=== PATIENT | female | born 1965 | race Caucasian/White ===

== ENCOUNTER → 2016-12-18 | Outpatient (CLI) | payer BC ==
[~2016-12-18] MED LIST: ADVIN25050 INH; ALBU0.08 INH; ALBUAER2 INH; ALL60 PO; CALC250T8 PO; DIPH25CA5 PO; DTR/5 PO; EPP3/2 IM; FLX/5 PO; ONDA8TAB7 PO; PHEN-876 PO; PSEU60TA80 PO; RIZA10TA18 PO; SNQ/25 PO; SUMA6KIT SC; magnesium PO
--- NOTE | 2016-12-18 10:30 | DIAGNOSTIC IMAGING REPORT ---
PET/CT HISTORY: OVARIAN CANCER TECHNIQUE: PET/CT was performed from the base of the skull through the pelvis following the intravenous administration of 13.4 mCi of F18-FDG. Non-contrast CT imaging was performed over the same range without breath-hold for attenuation correction of PET images and anatomic correlation, but not for primary interpretation as it is not of standard diagnostic quality. CT DOSE: COMPARISON: PET CT 08/23/2016. FINDINGS: HEAD AND NECK: There is no FDG-avid disease or significant lymphadenopathy in the imaged portions of the head and the neck. CHEST: There is no FDG-avid disease in the chest. There is no axillary, mediastinal, or hilar lymphadenopathy. There is no pleural or pericardial effusion. There is no air-space disease or suspicious lung nodule. The ascending thoracic aorta measures up to 4.2 cm in diameter, unchanged. ABDOMEN/PELVIS: Below the diaphragm, tracer is distributed physiologically in the gastrointestinal and genitourinary tracts. Increase in size in the cystic lesion lateral to the right psoas muscle. This measures 8.0 x 6.4 cm, previous measuring 6.1 x 4.8 cm. There is increase in the fluid surrounding this lesion. The fluid demonstrates mild FDG uptake with an SUV max of 3. A few small areas of peripheral FDG uptake within this lesion. This is most pronounced on image 178 which demonstrates a small focus with an SUV max of 4. This area previously demonstrated an SUV max of 1.7. There is also 1 cm soft tissue nodule at the right vaginal cuff on image 206. This demonstrates progressive FDG uptake with an SUV max of 7, previously demonstrating an SUV max of 5. This is suspicious for a metastatic focus. Stable 9 mm ileocolic lymph node which does not demonstrate abnormal FDG uptake. MUSCULOSKELETAL: There is no FDG-avid or destructive bone lesion. IMPRESSION: 1. Increase in size and peripheral FDG uptake associated with the cystic lesion within the right lower quadrant abutting the right psoas muscle. This is consistent with progression of metastatic disease. 2. There is also increased FDG uptake associated with an 1 cm soft tissue nodule within the right vaginal cuff. This also likely represents progressive metastatic disease. Electronically signed by: Rhys Pope M.D. 12/18/2016 10:28 AM Dictated Date/Time: 12/18/2016 10:14 AM
== END | disposition home or self-care (01) ==
LOC: C.PET 06:55
PROVIDERS: ATTEND Radiology Radiation Oncology
DX: C56.9 Malignant neoplasm of unspecified ovary (principal); C78.89 Secondary malignant neoplasm of other digestive organs; C77.5 Secondary and unspecified malignant neoplasm of intrapelvic lymph nodes

== ENCOUNTER → 2016-12-20 | Outpatient (CLI) | payer BC ==
[~2016-12-20] MED LIST changes: +GADAVIST IV PRN
--- NOTE | 2016-12-20 09:46 | DIAGNOSTIC IMAGING REPORT ---
MRI OF THE PELVIS COMBO CLINICAL HISTORY: Ovarian cancer. Pelvic lesions seen by PET. COMPARISON STUDY: Pelvic CT dated 04/28/2011. PET CT dated 12/18/2016 and 08/23/2016. TECHNIQUE: MRI of the pelvis is performed utilizing various T1 and T2-weighted sequences in the axial, sagittal, coronal planes. Contrast-enhanced sequences were acquired following the IV administration of 9.4 cc of Gadavist. The examination is degraded by motion artifact. FINDINGS: The uterus and ovaries are not identified and presumed surgically absent. The bladder is decompressed and not well evaluated. No pelvic sidewall or inguinal lymphadenopathy is seen. A cystic lesion along the right psoas musculature is only partially visualized, and was only seen on the coronal sequences. This measures up to 8 cm in length. Mild nodularity is suggested along the inferior margin and the appearance is highly concerning for metastatic ovarian carcinoma. This was better characterized on the recent PET examination. There is mild irregularity/nodularity suggested involving the superior margin of the vaginal cuff eccentric to the right. This is best seen on axial postcontrast image 22 and measures 1.7 cm in AP diameter. It is unclear if this represents normal tissue, and this may correspond to the FDG activity questioned on the recent PET scan. No additional lesions are questioned in the pelvis. There is no pelvic ascites. The iliac vessels appear patent. No destructive bony lesion is suggested. Mild edema is present within the right iliacus muscle. IMPRESSION: 1. An 8 cm cystic lesion along the right psoas musculature is only partially visualized. This was better characterized on the 12/18/2016 PET examination and remains highly concerning for metastatic ovarian cancer. 2. There is mild irregularity identified along the superior margin of the vaginal cuff. This likely corresponds to the focus of activity questioned by PET. No definite lesion is identified, and this may simply represent postoperative irregularity. Attention at follow-up is recommended. 3. No additional lesions are clearly identified in the pelvis. 4. The uterus and ovaries are surgically absent. 5. Nonspecific intramuscular edema is noted within the right iliacus. Dictated: 12/20/2016 9:06 AM Transcribed: 12/20/2016 9:45 AM [place] Electronically signed by: Scott Michaels M.D. 12/20/2016 9:48 AM Dictated Date/Time: 12/20/2016 9:06 AM
== END | disposition home or self-care (01) ==
LOC: C.MRI 07:27
PROVIDERS: ATTEND Radiology Radiation Oncology
DX: C56.9 Malignant neoplasm of unspecified ovary (principal); C78.89 Secondary malignant neoplasm of other digestive organs; C77.5 Secondary and unspecified malignant neoplasm of intrapelvic lymph nodes

== ENCOUNTER → 2017-01-18 | Outpatient (CLI) | payer BC ==
[~2017-01-18] MED LIST changes: -GADAVIST IV PRN
--- NOTE | 2017-01-18 11:18 | Discharge Instructions ---
Discharge Instructions Procedure Procedure Date: January 18, 2017. Reason for visit: Ovarian Ca, Malignent Neoplasm*Dr De La Torre To Do*. Discharge Discharge Date: January 18, 2017. Discharge Diagnosis: s/p aspiration of right retroperitoneal cystic mass Instructions Activity Recommendations: No limitations Return to School/Work: no limitations Recommended Home Diet: No Limitations Provider Instructions: ACTIVITY RECOMMENDATIONS: * Rest today. * Resume regular activity in one day. MEDICATIONS: * May take Tylenol or Ibuprofen as needed for pain. DIET: * Resume previous diet. SPECIAL CARE INSTRUCTIONS: Call your doctor if: * Temperature above 101 degrees F. * Pain not relieved by pain medicine ordered. * Increased drainage or redness from incision. * Notify your doctor with any questions or concerns. Call your doctor or go to the nearest Emergency Department if you experience: * Increased chest pain or shortness of breath. FOLLOW UP VISIT: Follow-up with Referring Physician as scheduled. Allergies Coded Allergies: BEE STING (Verified Allergy, Severe, ANAPHYLAXIS, 10/28/15) Fish Allergy (Verified Allergy, Severe, ANAPHYLAXIS TO SEAFOOD, 07/16/15) Food (Verified Allergy, Severe, HONEYDUE MELON-SWELLING, HIVES, AND ASTHMA ATTACK, 07/16/15) Iodinated Diagnostic Agents (Verified Allergy, Severe, ANAPHYLAXIS, 10/28/15 ) Magnesium Salicylate (Verified Allergy, Severe, ANAPHYLAXIS, 10/28/15) Penicillins (Verified Allergy, Severe, ANAPHYLAXIS, 10/28/15) Shellfish (Verified Allergy, Severe, ANAPHYLAXIS TO SEAFOOD, 07/16/15) Shellfish Allergy (Verified Allergy, Severe, ANAPHYLAXIS TO SEAFOOD, 07/16) Black [place] (Verified Allergy, Intermediate, SWELLING, HIVES AND ASTHMA ATTACK, 10/28/15) Cantaloupe (Verified Allergy, Intermediate, SWELLING, HIVES, ASTHMA ATTACK , 10/28/15) Coconut (Verified Allergy, Intermediate, SWELLING, HIVES, ASTHMA ATTACK, ) Codeine (Verified Allergy, Intermediate, SWELLING, HIVES, ASTHMA ATTACK, ) TREATED WITH EPI Iodine (Verified Allergy, Intermediate, SWELLING, RASH, BLISTERS, BLEEDING , 10/28/15) Milk (Verified Allergy, Intermediate, SWELLING, HIVES AND MIGRAINES, ) [place] (Verified Allergy, Intermediate, SWELLING, HIVES, MIGRAINES, 10/28/15) Tetracycline (Verified Allergy, Intermediate, SWELLING, HIVES, ASTHMA ATTACK, 10/28/15) TREATED WITH EPI Latex1 -Allergic Contact Dermititis (Verified Allergy, Unknown, 07/16/15) Henok Womack Recommendations: Call your doctor if: * Temperature above 101 degrees * Pain not relieved by pain medicine ordered * There is increased drainage or redness from any incision * You have any unanswered questions or concerns. Your Doctors Instructions noted above were prepared by provider Jeff De La Torre. Patient Signature Section: Patient Instructions Signature Page [place] Pal Patient (or Guardian) Signature/Date: I have read and understand the instructions given to me by my caregivers. Caregiver/RN/Doctor Signature/Date: The above-named patient and/or guardian has received patient instructions on this date. + Original Patient Signature Page (only) stays with chart. Please make copy for patient.
--- NOTE | 2017-01-18 11:43 | DIAGNOSTIC IMAGING REPORT ---
ULTRASOUND GUIDED ASPIRATION OF RIGHT RETROPERITONEAL CYSTIC MASS CLINICAL HISTORY: Ovarian carcinoma. COMPARISON STUDY: PET/CT December 18, 2016. PROCEDURE: Sonography demonstrated the right retroperitoneal cystic mass shown on PET/CT of December 18, 2016. This mass measures approximate 8.1 x 6.4 cm. This was targeted for aspiration. The procedure, risks and benefits were discussed with the patient including the risk of bleeding, infection and tumor spread. The patient agreed to the procedure and informed written consent was obtained. The procedure was performed by Dr. De La Torre following a timeout. Skin was prepped and draped in sterile fashion and local anesthesia was achieved with 1% lidocaine. Under direct ultrasound guidance, an 18-gauge, 3 and 1/2 inch spinal needle was directed into the cystic mass. A total of 225 cc of reddish-brown fluid was aspirated and sent to laboratory for cytology. The lesion was aspirated to near completion. A small amount of residual fluid was noted. The patient tolerated the procedure well and no immediate complications were evident. IMPRESSION: Ultrasound guided aspiration of the right retroperitoneal cystic mass. 225 cc of reddish-brown fluid was aspirated and sent to laboratory for cytology. The lesion was aspirated to near completion with a small amount of residual fluid. Electronically signed by: Jeff De La Torre M.D. 01/18/2017 11:42 AM Dictated Date/Time: 01/18/2017 11:40 AM
== END | disposition home or self-care (01) ==
LOC: C.ULTR 10:25
PROVIDERS: ATTEND Radiology Radiation Oncology
DX: K68.9 Other disorders of retroperitoneum (principal)

== ENCOUNTER → 2017-02-16 | Outpatient (CLI) | payer BC ==
--- NOTE | 2017-02-16 11:13 | DIAGNOSTIC IMAGING REPORT ---
ULTRASOUND GUIDED ASPIRATION OF A RIGHT RETROPERITONEAL CYSTIC MASS CLINICAL HISTORY: Ovarian carcinoma. COMPARISON STUDY: PET/CT December 18, 2016. PROCEDURE: Sonography demonstrated the right retroperitoneal cystic mass shown on PET/CT of December 18, 2016. This mass measures approximate 7 cm. This was targeted for aspiration. The procedure, risks and benefits were discussed with the patient including the risk of bleeding, infection and tumor spread. The patient agreed to the procedure and informed written consent was obtained. The procedure was performed by Dr. Pope following a timeout. Skin was prepped and draped in sterile fashion and local anesthesia was achieved with 1% lidocaine. Under direct ultrasound guidance, an 18-gauge, 3 and 1/2 inch spinal needle was directed into the cystic mass. A total of 180 cc of reddish-brown fluid was aspirated and discarded. The lesion was aspirated to completion. The patient tolerated the procedure well and no immediate complications were evident. IMPRESSION: Ultrasound guided aspiration of the right retroperitoneal cystic mass. 180 cc of reddish-brown fluid was aspirated. Electronically signed by: Rhys Pope M.D. 02/16/2017 11:11 AM Dictated Date/Time: 02/16/2017 11:09 AM
== END | disposition home or self-care (01) ==
LOC: C.ULTR 08:59
PROVIDERS: ATTEND Radiology Radiation Oncology
DX: C56.9 Malignant neoplasm of unspecified ovary (principal); C78.89 Secondary malignant neoplasm of other digestive organs

== ENCOUNTER → 2017-03-09 | Outpatient (CLI) | payer BC ==
[~2017-03-09] MED LIST changes: +BND25 PO; -DIPH25CA5 PO; -DTR/5 PO; +OXYB5TAB74 PO
--- NOTE | 2017-03-09 09:51 | DIAGNOSTIC IMAGING REPORT ---
ULTRASOUND-GUIDED ASPIRATION OF A RIGHT RETROPERITONEAL CYSTIC MASS CLINICAL HISTORY: Ovarian carcinoma. Right lower quadrant cyst. COMPARISON STUDY: No previous studies for comparison. FINDINGS: The risks were explained the patient, and informed consent was obtained. There is a right lower quadrant cystic lesion measuring 6.2 x 6.6 x 5.5 cm. The patient was prepped in sterile fashion. The skin was anesthetized 1% lidocaine. Under ultrasound guidance, an 18-gauge needle was introduced into the cystic lesion. The lesion was aspirated. Only minimal residual fluid was noted.. 75 cc of reddish-brown fluid was aspirated. IMPRESSION: 1. The patient's right lower quadrant cystic lesion was aspirated to near completion. 75 cc of reddish-brown fluid was removed. 2. There were no immediate complications. Electronically signed by: Cullen Roman M.D. 03/09/2017 9:50 AM Dictated Date/Time: 03/09/2017 9:47 AM
== END | disposition home or self-care (01) ==
LOC: C.ULTR 08:41
PROVIDERS: ATTEND Radiology Radiation Oncology
DX: R19.07 Generalized intra-abdominal and pelvic swelling, mass and lump (principal)

== ENCOUNTER → 2017-05-08 | Outpatient (CLI) | payer BC ==
[~2017-05-08] MED LIST changes: -PSEU60TA80 PO
[2017-05-08 14:01] VITALS: BP 124/87; PULSE 90; TEMP 36.8; O2SAT 96
--- NOTE | 2017-05-08 16:04 | Radiation Oncology Follow-Up ---
Radiation Oncology Follow-Up Date of Visit May 08, 2017. Reason For Visit One-month follow-up Radiation Completion Date finished 11-17-2015 and 04-03-2017 Diagnosis (1) ovarian cancer Status: Resolved Onset Date: 03/02/2008 Location: vaginal cuff recurrence November 2016 Histology Subtype: high-grade serous carcinoma Permanent Comment: -Finding of a pelvic mass -Status post total abdominal hysterectomy bilateral salpingo-oophorectomy 2007 -Serous adenocarcinoma bilaterally of the ovaries -Status post 6 cycles of Taxol and carboplatin March 2008 to July 2008 -Rising CEA 125 with abdominal and pelvic changes on CT -Status post debulking 01/28/2014 -Systemic chemotherapy Taxol and carboplatin February 2014 to July 2014 -Negative PET/CT 08/24/2014 -Slow rise in CEA 125 last value 40 -PET/CT positive for splenic metastasis and right sidewall activity 09/27/2015 -Status post completion of combined radiation and chemotherapy -Radiation completed 11/17/2015 received 5000 cGy to the splenic lesion and 5000 cGy to the right sidewall -Vaginal cuff recurrence - 12/04/2016 (Biopsy date) Status post completion of radiation therapy 04/03/2017. She received 4400 cGy external beam therapy as well as 5 HDR treatments at 400 cGy each. Last Edited By: Rubi Martinez on Apr 12, 2017 10:02 History of Present Illness Ms. Pal is a 52-year-old female who was found to have ovarian masses in 2007. A CT scan from 02/03/2008 revealed partially solid partially cystic mass noted anterior to the uterus with fluid versus probable second septated cystic mass to the right of uterus. The anterior mass measured 9.2 x 5.1 x 6.3 cm and the right-sided mass measured 7.8 x 6.4 x 4.4 cm. This was felt to be compatible with a primary ovarian neoplasm. Patient also previously undergone a left rest lumpectomy by Dr. Pedro Farias which revealed negative tissue or in situ or invasive cancer. The patient was seen by Dr. Campos and on 2007 underwent a total abdominal hysterectomy and BSO with lymph node dissection. The left tube and ovary revealed multiple solid firm nodules underneath the capsule and stroma ranging from 0.5 cm to 2.8 cm in diameter. There were multiple necrotic pinker brown colored hemorrhagic areas inside the tumor. This was consistent with a serous adenocarcinoma. The fallopian tube was negative. The right tube and ovary revealed multiple tumor masses ranging from 0.5-2.6 cm in diameter. Multiple hemorrhagic areas are noted inside the parenchymal area area and these are also consistent with a serous adenocarcinoma with negative fallopian tube. Evaluation of the uterus and cervix was negative for malignancy. 8 left periaortic and 2 left pelvic lymph nodes were dissected and were negative for metastatic disease. A biopsy of the left peritoneum was negative for tumor. 5 right periaortic and 2 right pelvic lymph nodes were negative for metastasis. A right pelvic sidewall peritoneal biopsy was negative for tumor. An omentectomy was performed and was negative for tumor. A right gutter biopsy of the peritoneum and left upper gutter biopsy of the peritoneum were negative for tumor. The right ovary tumor measured 9.5 x 6.2 x 5.7 cm and the left ovarian tumor measured 9.0 x 6.0 x 3.4 cm. This was a poorly differentiated carcinoma with pathologic FIGO staging pT 1 N0 MX with 0 of 17 nodes positive. The patient was seen postoperatively by Dr. Pk Perry who recommended adjuvant systemic chemotherapy. The patient had a port placed by Dr. Milad Conner she went on to receive 6 cycles of Carboplatin and Taxol. She was followed with CA 125 and serial CAT scans. On 09/07/2008 CT scan of the chest, abdomen and pelvis unenhanced revealed postsurgical changes. These were repeated on 2008 again showing postoperative changes. CT scan of the abdomen and pelvis performed on 01/18/2010 revealed no enlarged adenopathy or masses with postoperative changes. Restaging CT scan of the chest, abdomen and pelvis performed on 05/06/2010 unenhanced showed stable findings with no evidence of recurrent disease. Restaging CT scan of the abdomen and pelvis performed on 09/2010 was again stable with no evidence of recurrent disease. On 05/08/2012 patient underwent a PET/CT scan. This showed no evidence of abnormal PET uptake and thus no evidence of recurrent disease. Her CA 125 from 05/09/2012 was normal at 10.8. Repeat CEA 125 on 10/09/2012 was 13.1. Repeat PET/CT scan on 05/19/2013 showed a new focal hypermetabolic area within the anterior medial segment of the left hepatic lobe. This was of uncertain significance. An unchanged area of 1.2 x 0.5 cm left retroperitoneal lymph node was again noted but was not hypermetabolic. Recommended continued follow-up. Repeat CEA 125 from 08/05/2013 became abnormal at 21.2. This was repeated on 09/24/2013 with continued elevation to 26. With a rising CEA 125 patient was seen by Dr. Campos. He repeated the CEA 125 on 10/31/2013. This showed continued elevation to 36. A CT scan of the abdomen and pelvis was subsequently performed which showed a fluid collection near the liver. Cytologies were taken and were positive for recurrent disease. Therefore on 01/28/2014 she underwent an exploratory laparotomy, right retroperitoneal dissection and tumor debulking. She was found to have a number of small tumor-like nodules in the right upper quadrant measuring approximately 2-3 mm in size. All visible nodules were excised. She underwent a right retroperitoneal dissection. She was found to have a band like area of what appeared to be recurrent disease measuring approximately a finger breath in thickness. This band like tissue extended for a few inches and was excised. No further abnormal tissue is identified. This showed recurrent stage II ovarian adenocarcinoma. Accession: [id number]. She again returned to see Dr. Perry and was started back on systemic chemotherapy consisting of Taxol and carboplatinum. She had a repeat PET/CT scan performed on 08/24/2014. This showed no FDG activity to suggest residual disease. The patient's CEA 125 was also followed closely. On 05/08/2014 it had decreased to 10.1. 06/19/2014 CA 125 was 9. 07/17/2014 CEA 125 9. 08/14/2014 CEA 125 was 8. On September 2015 and 12/07/2014 CEA 125 was 7. On 01/25/2015 CEA 125 was 9 area and on 2014 prostate-specific antigen increased to 16 and on 05/31/2015 CEA 125 was 29. On 07/09/2015 the patient underwent repeat CT scan of the chest abdomen and pelvis with contrast. This was compared to a previous CT scan of the abdomen and pelvis from 03/05/[address] scan was performed with dose reduction protocol. The spleen was unremarkable. In the right lower quadrant adjacent to the psoas muscle a lobulated mass which measured approximately 2.8 x 2.0 x 3.9 cm was identified. The Hounsfield unit numbers were higher than expected for simple fluid and this was not present on prior exam. There was some adjacent lymph nodes seen in the mesentery and the right lower quadrant with mesenteric lymph nodes being similar. There was no ascites and no free air. This is consistent with recurrent disease. Repeat CEA 125 from 2014 was 33 and from 09/10/2015 showed continued elevation to 44. Patient underwent a PET/CT scan on 09/27/2015. This showed an interval development of a hypermetabolic active focus in the medial aspect of the left spleen measuring 1.5 cm with an SUV exceeding 7. In addition there were lateral right pelvic sidewall adenopathy measuring 1.5 cm and an SUV of 5.5. These changes suggest early development of recurrent disease which correspond to the persistent increase in CEA 125. The images were evaluated by Dr. Campos and discussed with Dr. Perry. Surgery was not felt to be the best choice at this time and the recommendation was for consideration of reinitiation of systemic chemotherapy along with focal radiation. She completed radiation therapy 11/17/2015 she received 5000 cGy to the PET positive area in the spleen as well as the pelvis. The patient has been doing well with no evidence of recurrence until she presented recently to Dr. Moe Campos on 12/01/2016 with complaints of post coital bleeding and intermittent some vaginal discomfort. She did also have an elevated CA 125 which measured 28 in October 2016. The patient was seen and examined by Dr. Campos who did note a nodule within the vaginal cuff at the apex during his examination. Dr. Campos did perform a biopsy of the vaginal nodule which came back positive for high-grade serous carcinoma. We've been asked to evaluate the patient for consideration of potential radiation therapy for her vaginal cuff recurrence. She underwent combined external beam therapy and HDR treatments. The external beam radiation was completed 03/15/2017. She received 4400 cGy. She had 5 HDR treatments. These were 400 cGy each. The final treatment was given on 2016. Interim History She's been doing well over the past month. She steadily weaned off of the medications used for bladder irritation. She had been on Pyridium and Ditropan. She was able to completely discontinue the medication last . She has not had any further bladder spasms area she has minimal urinary urgency. She's had no vaginal discharge or bleeding. There is been no change in bowel habits. She denies pelvic pressure or pain. Her energy is steadily improving. She had some discomfort across the lower pelvic area after helping her harvest potatoes from the garden. She denied back pain. Allergies Coded Allergies: BEE STING (Verified Allergy, Severe, ANAPHYLAXIS, 10/28/15) Fish Allergy (Verified Allergy, Severe, ANAPHYLAXIS TO SEAFOOD, 07/16/15) Food (Verified Allergy, Severe, HONEYDUE MELON-SWELLING, HIVES, AND ASTHMA ATTACK, 07/16/15) Iodinated Diagnostic Agents (Verified Allergy, Severe, ANAPHYLAXIS, 10/28/15 ) Magnesium Salicylate (Verified Allergy, Severe, ANAPHYLAXIS, 10/28/15) Penicillins (Verified Allergy, Severe, ANAPHYLAXIS, 10/28/15) Shellfish (Verified Allergy, Severe, ANAPHYLAXIS TO SEAFOOD, 07/16/15) Shellfish Allergy (Verified Allergy, Severe, ANAPHYLAXIS TO SEAFOOD, 07/16) Black Junedale Tree (Verified Allergy, Intermediate, SWELLING, HIVES AND ASTHMA ATTACK, 10/28/15) Cantaloupe (Verified Allergy, Intermediate, SWELLING, HIVES, ASTHMA ATTACK , 10/28/15) Coconut (Verified Allergy, Intermediate, SWELLING, HIVES, ASTHMA ATTACK, ) Codeine (Verified Allergy, Intermediate, SWELLING, HIVES, ASTHMA ATTACK, ) TREATED WITH EPI Iodine (Verified Allergy, Intermediate, SWELLING, RASH, BLISTERS, BLEEDING , 10/28/15) Milk (Verified Allergy, Intermediate, SWELLING, HIVES AND MIGRAINES, ) Swink (Verified Allergy, Intermediate, SWELLING, HIVES, MIGRAINES, 10/28/15) Tetracycline (Verified Allergy, Intermediate, SWELLING, HIVES, ASTHMA ATTACK, 10/28/15) TREATED WITH EPI Latex1 -Allergic Contact Dermititis (Verified Allergy, Unknown, 07/16/15) Home Medications Scheduled Albuterol Soln (Proventil 0.083% 2.5MG/3ML), 1 INHA INH PRN Calcium Citrate (Calcium Citrate), 1 TAB PO HS Doxepin (Sinequan), 150 MG PO HS Epinephrine (Epipen), 0.3 MG IM UD Fexofenadine Hcl (Anna *), 60 MG PO QPM [magnesium], 250 MG PO HS Scheduled PRN Albuterol (Ventolin), 2 PUFFS INH QID PRN for SOB/Wheezing Cyclobenzaprine HCl (Cyclobenzaprine HCl), 1 TAB PO for Muscle Spasms Diphenhydramine Hcl (Benadryl), 25 MG PO Q4H PRN for ALLERGIC REACTION Fluticasone Prop/Salmeterol (Advair Diskus 250/50 Mcg *), 1 PUFF INH HS PRN for SOB/Wheezing Ondansetron Tab (Zofran), 8 MG PO TID PRN for Nausea or Vomiting Rizatriptan Benzoate (Maxalt), 10 MG PO for Headache Sumatriptan Succinate (Imitrex Statdose), 4 MG SC UD PRN for Migraine Review of Systems Gastrointestinal: Symptoms: WNL Oral: Symptoms: Scant Saliva/Dry Mouth Respiratory: Symptoms: WNL Urinary: Symptoms: Nocturia Comments: just getting off ditropan and pyridium , nocturia times 1 Skin: Symptoms: No Problems Additional Notes: She completed distress management report and answered "no" to all questions. Physical Exam Vital Signs Date Time Temp Pulse Resp B/P (MAP) Pulse Ox O2 Delivery O2 Flow Rate FiO2 05/08/17 14:01 36.8 90 16 124/87 96 Pain: Side: Bilateral Patient Pain Scale: 0 - 10 Initial Pain Intensity: 0.0 Fatigue: None General Appearance: no apparent distress Neck: no adenopathy, thyroid normal Respiratory/Chest: lungs clear, no respiratory distress, no accessory muscle use Cardiovascular: regular rate, rhythm, no gallop, no murmur Genitourinary - Female: Examination performed by Dr. Haines. There is narrowing at the introitus and foreshortening of the vagina. There are mild post radiation changes seen at the apex. There are no visible or palpable lesions in the vagina. There is no tenderness or masses on bimanual examination. Anal / Rectum: There is no rectal masses and no rectal bleeding. Extremities: no pedal edema Neurologic/Psychiatric: no motor/sensory deficits, alert, normal mood/affect Laboratory Studies Test 03/19/17 16:10 05/04/17 16:17 White Blood Count 4.64 K/uL (4.8-10.8) 5.56 K/uL (4.8-10.8) Red Blood Count 4.47 M/uL (4.2-5.4) 3.90 M/uL (4.2-5.4) Hemoglobin 13.2 g/dL (12.0-16.0) 12.2 g/dL (12.0-16.0) Hematocrit 40.3 % (37-47) 36.4 % (37-47) Mean Corpuscular Volume 90.2 fL (80-100) 93.3 fL (80-100) Mean Corpuscular Hemoglobin 29.5 pg (25-34) 31.3 pg (25-34) Mean Corpuscular Hemoglobin Concent 32.8 g/dl (32-36) 33.5 g/dl (32-36) Platelet Count 268 K/uL (130-400) 326 K/uL (130-400) Mean Platelet Volume 9.4 fL (7.4-10.4) 9.1 fL (7.4-10.4) Neutrophils (%) (Auto) 70.7 % 72.8 % Lymphocytes (%) (Auto) 6.0 % 13.1 % Monocytes (%) (Auto) 18.8 % 9.9 % Eosinophils (%) (Auto) 4.1 % 3.8 % Basophils (%) (Auto) 0.2 % 0.2 % Neutrophils # (Auto) 3.28 K/uL (1.4-6.5) 4.05 K/uL (1.4-6.5) Lymphocytes # (Auto) 0.28 K/uL (1.2-3.4) 0.73 K/uL (1.2-3.4) Monocytes # (Auto) 0.87 K/uL (0.11-0.59) 0.55 K/uL (0.11-0.59) Eosinophils # (Auto) 0.19 K/uL (0-0.5) 0.21 K/uL (0-0.5) Basophils # (Auto) 0.01 K/uL (0-0.2) 0.01 K/uL (0-0.2) RDW Standard Deviation 44.4 fL (36.4-46.3) 48.0 fL (36.4-46.3) RDW Coefficient of Variation 13.6 % (11.5-14.5) 14.2 % (11.5-14.5) Immature Granulocyte % (Auto) 0.2 % 0.2 % Immature Granulocyte # (Auto) 0.01 K/uL (0.00-0.02) 0.01 K/uL (0.00-0.02) Sodium Level 140 mmol/L (136-145) 140 mmol/L (136-145) Potassium Level 3.8 mmol/L (3.5-5.1) 3.7 mmol/L (3.5-5.1) Chloride Level 105 mmol/L (98-107) 105 mmol/L (98-107) Carbon Dioxide Level 29 mmol/L (21-32) 29 mmol/L (21-32) Anion Gap 6.0 mmol/L (3-11) 6.0 mmol/L (3-11) Blood Urea Nitrogen 19 mg/dl (7-18) 14 mg/dl (7-18) Creatinine 0.92 mg/dl (0.60-1.20) 0.88 mg/dl (0.60-1.20) Est Creatinine Clear Calc Drug Dose 78.6 ml/min 82.1 ml/min Estimated GFR () 83.0 87.6 Estimated GFR (Non- 71.6 75.5 BUN/Creatinine Ratio 20.8 (10-20) 15.9 (10-20) Random Glucose 93 mg/dl (70-99) 91 mg/dl (70-99) Calcium Level 9.4 mg/dl (8.5-10.1) 8.9 mg/dl (8.5-10.1) Total Bilirubin 0.3 mg/dl (0.2-1) 0.2 mg/dl (0.2-1) Aspartate Amino Transferase (AST) 14 U/L (15-37) 16 U/L (15-37) Alanine Aminotransferase (ALT) 28 U/L (12-78) 30 U/L (12-78) Alkaline Phosphatase 46 U/L (45-117) 58 U/L (45-117) Lactate Dehydrogenase 154 U/L (84-246) 183 U/L (84-246) Total Protein 7.2 gm/dl (6.4-8.2) 7.1 gm/dl (6.4-8.2) Albumin 3.8 gm/dl (3.4-5.0) 3.5 gm/dl (3.4-5.0) Globulin 3.4 gm/dl (2.5-4.0) 3.6 gm/dl (2.5-4.0) Albumin/Globulin Ratio 1.1 (0.9-2) 1.0 (0.9-2) CA 125 Antigen 30 U/ML (<35) 36 U/ML (<35) Assessment & Plan Plan: She is scheduled for a PET scan May 14. She'll have a recheck visit with Dr. Campos on May 25. She'll be seen in medical oncology in 06/01/2017. We discussed use of a vaginal dilator once she has recovered from treatment. She stated she had discussed this previously with Dr. Campos. She'll continue to review this with him also. We asked her to return to our office in 6 months. She will call if she has any questions or concerns in the interim. Assessment & Plan (Attending) ADDENDUM: I agree with note created by Rubi Martinez PA-C. I reviewed the patient's chart and information with her. I have examined and evaluated the patient. I reviewed relevant clinical information and answered the patient's and /or family's questions. WAITER/WAITRESS INFORMAL Total Time In Follow-Up I spent 20 minutes speaking to the patient performing examination. I spent 15 minutes reviewing information in completing this note. AK Total Time (Attending) In Follow-Up I spent 15 minutes examining and counseling the patient. WAITER/WAITRESS INFORMAL Copy To Moe Campos M.D.; Pk Whitney M.D.; Nataliia Villalobos CRNP
== END | disposition home or self-care (01) ==
LOC: C.ONC 13:47
PROVIDERS: ATTEND Physician Assistant Medical
DX: Z08 Encounter for follow-up examination after completed treatment for malignant neoplasm (principal); Z92.3 Personal history of irradiation; Z85.43 Personal history of malignant neoplasm of ovary

== ENCOUNTER → 2017-05-14 | Outpatient (CLI) | payer BC ==
[~2017-05-14] MED LIST changes: -OXYB5TAB74 PO; -PHEN-876 PO
--- NOTE | 2017-05-14 11:24 | DIAGNOSTIC IMAGING REPORT ---
PET/CT SKULL-THIGH HISTORY: Ovarian carcinoma OVARIAN CA TECHNIQUE: PET/CT was performed from the base of the skull through the pelvis following the intravenous administration of 15.4 mCi of F18-FDG. Non-contrast CT imaging was performed over the same range without breath-hold for attenuation correction of PET images and anatomic correlation, but not for primary interpretation as it is not of standard diagnostic quality. CT DOSE: 612.22 mGycm COMPARISON: 12/18/2016 FINDINGS: HEAD AND NECK: There is no FDG-avid disease or significant lymphadenopathy in the imaged portions of the head and the neck. CHEST: There is no FDG-avid disease in the chest. There is no axillary, mediastinal, or hilar lymphadenopathy. There is no pleural or pericardial effusion. There is no air-space disease or suspicious lung nodule. Focus of increased activity at the tip of the central catheter within the superior vena cava. This most likely represents isotope had a fibrin sheath. No significant mediastinal or hilar adenopathy. Activity is also noted within the patient's infusion port generally secondary to injection artifact. ABDOMEN/PELVIS: Examination is improved compared to the prior study. Cystic lesion adjacent to the right iliopsoas muscle laterally as diminished to 5.5 cm maximum dimension. This running edematous and/or infiltrative change as well as the jennifer pathology in the region anterior to the right iliac so as has improved and/or resolved. Maximum dimension currently is 5 mm diminished from 8.9 mm. There is no significant metabolic activity in this region of the current time. The activity previously described as well as the nodular activity adjacent to the vaginal cuff is diminished. This time there is no abnormal metabolic activity characteristics. There is minimal residual fibrotic scarring at the site previous study discussed. MUSCULOSKELETAL: There is no FDG-avid or destructive bone lesion. IMPRESSION: 1. Improved exam from the prior study. 2. No current pathologic demonstrating a increase in FDG activity. 3. Decrease in size of a cystic process adjacent to the right iliopsoas muscle with a decrease in volume as well as number of nodules on the right lower quadrant region. No abnormal FDG activity in this region 4. Improved activity characteristics of the vaginal cuff with no metabolically active residual lesion present at the current time. The above report was generated using voice recognition software. It may contain grammatical, syntax or spelling errors. Electronically signed by: August Zavala M.D. 05/14/2017 11:23 AM Dictated Date/Time: 05/14/2017 11:09 AM
== END | disposition home or self-care (01) ==
LOC: C.PET 08:12
PROVIDERS: ATTEND Nurse Practitioner Family
DX: C56.9 Malignant neoplasm of unspecified ovary (principal)

== ENCOUNTER → 2017-08-13 | Outpatient (CLI) | payer BC ==
[~2017-08-13] MED LIST changes: -BND25 PO; +DIPH25CA5 PO
--- NOTE | 2017-08-13 14:28 | DIAGNOSTIC IMAGING REPORT ---
PET/CT HISTORY: Ovarian cancer. TECHNIQUE: PET/CT was performed from the base of the skull through the pelvis following the intravenous administration of 12.7 mCi of F18-FDG. Non-contrast CT imaging was performed over the same range without breath-hold for attenuation correction of PET images and anatomic correlation, but not for primary interpretation as it is not of standard diagnostic quality. CT DOSE: COMPARISON: Head CT 05/14/2017. FINDINGS: HEAD AND NECK: There is no FDG-avid disease or significant lymphadenopathy in the imaged portions of the head and the neck. CHEST: Increase in size in the 10 mm left superior mediastinal lymph node on image 49. This demonstrates an SUV max of 2.6. Left Port-A-Cath terminates in the SVC. 1 cm focus of FDG uptake at the tip of the Port-A-Cath within the SVC has decreased in size and demonstrates diminished FDG uptake with an SUV max of 3.6. This previously demonstrated an SUV max of 10.8. Stable 5 mm nodule within the right middle lobe on image 85. This is not demonstrate abnormal FDG uptake but may be below the threshold for PET imaging. Mild FDG uptake within the right lateral fourth rib without corresponding CT abnormality. This demonstrates an SUV max of 2.4. This is new from the prior study. ABDOMEN/PELVIS: No FDG avid hepatic or splenic lesions. No FDG avid retroperitoneal lymph nodes. Prior retroperitoneal lymph node dissection. No significant change in the 5.3 cm retroperitoneal cystic lesion abutting and the the right psoas muscle. This suggests minimal peripheral FDG uptake, unchanged. There is a 5 mm soft tissue nodule within the left anterior omentum on image 135 which may demonstrate minimal FDG uptake. Therefore, this is suspicious for a peritoneal metastatic deposit. Status post hysterectomy. Mild soft tissue thickening at the vaginal cuff with mild FDG uptake along the right side of the vaginal cuff which demonstrates an SUV max of 2.7. This has slightly progressed in the interval. This likely represent slight progression of peritoneal metastatic disease. MUSCULOSKELETAL: There is no FDG-avid or destructive bone lesion. IMPRESSION: 1. Slight progression of FDG avid disease. This is demonstrated by increase in size and FDG uptake within the left superior mediastinal lymph node and slight progression of the FDG uptake and soft tissue stranding at the vaginal cuff. 2. There is a 5 mm omental nodule within the left side of the abdomen which appears to demonstrate minimal FDG uptake. Therefore, this is also concerning for progression of peritoneal carcinomatosis. 3. No significant change in the 5.3 cm retroperitoneal cystic lesion abutting the right psoas muscle. 4. Stable 5 mm indeterminate pulmonary nodule within the right middle lobe. 5. Mild FDG uptake seen within the right lateral fourth rib without corresponding CT abnormality. This bears watching on future examinations. Electronically signed by: Rhys Pope M.D. 08/13/2017 2:26 PM Dictated Date/Time: 08/13/2017 2:01 PM
== END | disposition home or self-care (01) ==
LOC: C.PET 08:38
PROVIDERS: ATTEND Nurse Practitioner Family
DX: C56.9 Malignant neoplasm of unspecified ovary (principal)

== ENCOUNTER → 2017-09-23 | Outpatient (CLI) | payer OTHER, BC ==
--- NOTE | 2017-09-23 16:14 | DIAGNOSTIC IMAGING REPORT ---
CHEST 2 VIEWS ROUTINE HISTORY: COUGH R05 COMPARISON: Chest 03/12/2014. PET CT 08/13/2017. FINDINGS: No focal lung consolidations to suggest pneumonia. Mild bibasilar interstitial thickening which is likely chronic. No evidence for pulmonary edema. The heart is borderline enlarged. Left subclavian Port-A-Cath terminates at the SVC. No pneumothorax. No pleural effusions. IMPRESSION: No focal lung consolidations to suggest pneumonia. Electronically signed by: Rhys Pope M.D. 09/23/2017 4:12 PM Dictated Date/Time: 09/23/2017 4:10 PM
== END | disposition home or self-care (01) ==
LOC: C.RAD 15:48
PROVIDERS: ATTEND Family Medicine
DX: R05 Cough (principal)

== ENCOUNTER → 2017-11-06 | Outpatient (CLI) | payer OTHER, BC ==
[~2017-11-06] MED LIST changes: +CHOL1000 PO
[2017-11-06 14:24] VITALS: BP 136/88; PULSE 92; TEMP 37; O2SAT 96
--- NOTE | 2017-11-06 16:14 | Radiation Oncology Follow-Up ---
Radiation Oncology Follow-Up Date of Visit Nov 06, 2017. Reason For Visit Six-month follow-up Radiation Completion Date 11/17/15 & 04/03/17 Diagnosis (1) ovarian cancer Status: Chronic Onset Date: 03/02/2008 Location: Vaginal cuff recurrence November 2016 Histology Subtype: High-grade serous carcinoma Permanent Comment: -Finding of a pelvic mass -Status post total abdominal hysterectomy bilateral salpingo-oophorectomy 2007 -Serous adenocarcinoma bilaterally of the ovaries -Status post 6 cycles of Taxol and carboplatin March 2008 to July 2008 -Rising CEA 125 with abdominal and pelvic changes on CT -Status post debulking 01/28/2014 -Systemic chemotherapy Taxol and carboplatin February 2014 to July 2014 -Negative PET/CT 08/24/2014 -Slow rise in CEA 125 last value 40 -PET/CT positive for splenic metastasis and right sidewall activity 09/27/2015 -Status post completion of combined radiation and chemotherapy -Radiation completed 11/17/2015 received 5000 cGy to the splenic lesion and 5000 cGy to the right sidewall -Vaginal cuff recurrence - 12/04/2016 (Biopsy date) Status post completion of radiation therapy 04/03/2017. She received 4400 cGy external beam therapy as well as 5 HDR treatments at 400 cGy each. Last Edited By: Rubi Martinez on Apr 12, 2017 10:02 History of Present Illness Ms. Pal was found to have ovarian masses in 2007. A CT scan from 2007 revealed partially solid partially cystic mass noted anterior to the uterus with fluid versus probable second septated cystic mass to the right of uterus. The anterior mass measured 9.2 x 5.1 x 6.3 cm and the right-sided mass measured 7.8 x 6.4 x 4.4 cm. This was felt to be compatible with a primary ovarian neoplasm. Patient also previously undergone a left rest lumpectomy by Dr. Pedro Farias which revealed negative tissue or in situ or invasive cancer. The patient was seen by Dr. Campos and on 03/02/2008 underwent a total abdominal hysterectomy and BSO with lymph node dissection. The left tube and ovary revealed multiple solid firm nodules underneath the capsule and stroma ranging from 0.5 cm to 2.8 cm in diameter. There were multiple necrotic pinker brown colored hemorrhagic areas inside the tumor. This was consistent with a serous adenocarcinoma. The fallopian tube was negative. The right tube and ovary revealed multiple tumor masses ranging from 0.5-2.6 cm in diameter. Multiple hemorrhagic areas are noted inside the parenchymal area area and these are also consistent with a serous adenocarcinoma with negative fallopian tube. Evaluation of the uterus and cervix was negative for malignancy. 8 left periaortic and 2 left pelvic lymph nodes were dissected and were negative for metastatic disease. A biopsy of the left peritoneum was negative for tumor. 5 right periaortic and 2 right pelvic lymph nodes were negative for metastasis. A right pelvic sidewall peritoneal biopsy was negative for tumor. An omentectomy was performed and was negative for tumor. A right gutter biopsy of the peritoneum and left upper gutter biopsy of the peritoneum were negative for tumor. The right ovary tumor measured 9.5 x 6.2 x 5.7 cm and the left ovarian tumor measured 9.0 x 6.0 x 3.4 cm. This was a poorly differentiated carcinoma with pathologic FIGO staging pT 1 N0 MX with 0 of 17 nodes positive. The patient was seen postoperatively by Dr. kP Perry who recommended adjuvant systemic chemotherapy. The patient had a port placed by Dr. Milad Conner she went on to receive 6 cycles of Carboplatin and Taxol. She was followed with CA 125 and serial CAT scans. On 09/07/2008 CT scan of the chest, abdomen and pelvis unenhanced revealed postsurgical changes. These were repeated on 2008 again showing postoperative changes. CT scan of the abdomen and pelvis performed on 01/18/2010 revealed no enlarged adenopathy or masses with postoperative changes. Restaging CT scan of the chest, abdomen and pelvis performed on 05/06/2010 unenhanced showed stable findings with no evidence of recurrent disease. Restaging CT scan of the abdomen and pelvis performed on 09/2010 was again stable with no evidence of recurrent disease. On 05/08/2012 patient underwent a PET/CT scan. This showed no evidence of abnormal PET uptake and thus no evidence of recurrent disease. Her CA 125 from 05/09/2012 was normal at 10.8. Repeat CEA 125 on 10/09/2012 was 13.1. Repeat PET/CT scan on 05/19/2013 showed a new focal hypermetabolic area within the anterior medial segment of the left hepatic lobe. This was of uncertain significance. An unchanged area of 1.2 x 0.5 cm left retroperitoneal lymph node was again noted but was not hypermetabolic. Recommended continued follow-up. Repeat CEA 125 from 08/05/2013 became abnormal at 21.2. This was repeated on 09/24/2013 with continued elevation to 26. With a rising CEA 125 patient was seen by Dr. Campos. He repeated the CEA 125 on 10/31/2013. This showed continued elevation to 36. A CT scan of the abdomen and pelvis was subsequently performed which showed a fluid collection near the liver. Cytologies were taken and were positive for recurrent disease. Therefore on 01/28/2014 she underwent an exploratory laparotomy, right retroperitoneal dissection and tumor debulking. She was found to have a number of small tumor-like nodules in the right upper quadrant measuring approximately 2-3 mm in size. All visible nodules were excised. She underwent a right retroperitoneal dissection. She was found to have a band like area of what appeared to be recurrent disease measuring approximately a finger breath in thickness. This band like tissue extended for a few inches and was excised. No further abnormal tissue is identified. This showed recurrent stage II ovarian adenocarcinoma. Accession: [id number]. She again returned to see Dr. Perry and was started back on systemic chemotherapy consisting of Taxol and carboplatinum. She had a repeat PET/CT scan performed on 08/24/2014. This showed no FDG activity to suggest residual disease. The patient's CEA 125 was also followed closely. On 05/08/2014 it had decreased to 10.1. 06/19/2014 CA 125 was 9. 07/17/2014 CEA 125 9. 08/14/2014 CEA 125 was 8. On September 2015 and 12/07/2014 CEA 125 was 7. On 01/25/2015 CEA 125 was 9 area and on 2014 prostate-specific antigen increased to 16 and on 05/31/2015 CEA 125 was 29. On 07/09/2015 the patient underwent repeat CT scan of the chest abdomen and pelvis with contrast. This was compared to a previous CT scan of the abdomen and pelvis from 03/05/[address] scan was performed with dose reduction protocol. The spleen was unremarkable. In the right lower quadrant adjacent to the psoas muscle a lobulated mass which measured approximately 2.8 x 2.0 x 3.9 cm was identified. The Hounsfield unit numbers were higher than expected for simple fluid and this was not present on prior exam. There was some adjacent lymph nodes seen in the mesentery and the right lower quadrant with mesenteric lymph nodes being similar. There was no ascites and no free air. This is consistent with recurrent disease. Repeat CEA 125 from 2014 was 33 and from 09/10/2015 showed continued elevation to 44. Patient underwent a PET/CT scan on 09/27/2015. This showed an interval development of a hypermetabolic active focus in the medial aspect of the left spleen measuring 1.5 cm with an SUV exceeding 7. In addition there were lateral right pelvic sidewall adenopathy measuring 1.5 cm and an SUV of 5.5. These changes suggest early development of recurrent disease which correspond to the persistent increase in CEA 125. The images were evaluated by Dr. Campos and discussed with Dr. Perry. Surgery was not felt to be the best choice at this time and the recommendation was for consideration of reinitiation of systemic chemotherapy along with focal radiation. She completed radiation therapy 11/17/2015 she received 5000 cGy to the PET positive area in the spleen as well as the pelvis. The patient has been doing well with no evidence of recurrence until she presented recently to Dr. Moe Campos on 12/01/2016 with complaints of post coital bleeding and intermittent some vaginal discomfort. She did also have an elevated CA 125 which measured 28 in October 2016. The patient was seen and examined by Dr. Campos who did note a nodule within the vaginal cuff at the apex during his examination. Dr. Campos did perform a biopsy of the vaginal nodule which came back positive for high-grade serous carcinoma. We've been asked to evaluate the patient for consideration of potential radiation therapy for her vaginal cuff recurrence. She underwent combined external beam therapy and HDR treatments. The external beam radiation was completed 03/15/2017. She received 4400 cGy. She had 5 HDR treatments. These were 400 cGy each. The final treatment was given on 2016. Interim History Over the past 6 months she had continue follow-up with medical oncology and the gynecologic oncologist. Unfortunately the CA 125 has been slowly increasing.This was 36 on May 04, 2017. The result was 47 on July 13, 2017. On August 13, 2017 the value was at 52. She had a PET scan July. This showed slight progression of FDG avid disease. This is demonstrated by increase in size and FDG uptake within the left superior mediastinal lymph node and slight progression of the FDG uptake and soft tissue stranding of the vaginal cuff. There is a 5 mm omental nodule within the left side of the abdomen which appears to demonstrate minimal FDG uptake. Therefore this is also concerning for progression of peritoneal carcinomatosis. No significant change in the 5.3 cm retroperitoneal cystic lesion abutting the right psoas muscle. Stable 5 mm intermediate pulmonary nodule within the right middle lobe. Mild FDG uptake seen within the right lateral fourth rib without corresponding CT abnormality. This bears watching on future examinations. After her last visit with Dr. Damon a vaginal dilator was recommended. She did buy the dilator kit but has not used the dilator. She is not sexually active currently. She had recently been sick over 8 week time. With recurrent ear infection, sinusitis, and then bronchitis. She is finally now improving. Allergies Coded Allergies: BEE STING (Verified Allergy, Severe, ANAPHYLAXIS, 10/28/15) Fish Allergy (Verified Allergy, Severe, ANAPHYLAXIS TO SEAFOOD, 07/16/15) Food (Verified Allergy, Severe, HONEYDUE MELON-SWELLING, HIVES, AND ASTHMA ATTACK, 07/16/15) Iodinated Diagnostic Agents (Verified Allergy, Severe, ANAPHYLAXIS, 10/28/15 ) Magnesium Salicylate (Verified Allergy, Severe, ANAPHYLAXIS, 10/28/15) Penicillins (Verified Allergy, Severe, ANAPHYLAXIS, 10/28/15) Shellfish (Verified Allergy, Severe, ANAPHYLAXIS TO SEAFOOD, 07/16/15) Shellfish Allergy (Verified Allergy, Severe, ANAPHYLAXIS TO SEAFOOD, 07/16) Black [place] Tree (Verified Allergy, Intermediate, SWELLING, HIVES AND ASTHMA ATTACK, 10/28/15) Cantaloupe (Verified Allergy, Intermediate, SWELLING, HIVES, ASTHMA ATTACK , 10/28/15) Coconut (Verified Allergy, Intermediate, SWELLING, HIVES, ASTHMA ATTACK, ) Codeine (Verified Allergy, Intermediate, SWELLING, HIVES, ASTHMA ATTACK, ) TREATED WITH EPI Iodine (Verified Allergy, Intermediate, SWELLING, RASH, BLISTERS, BLEEDING , 10/28/15) Milk (Verified Allergy, Intermediate, SWELLING, HIVES AND MIGRAINES, ) Sears (Verified Allergy, Intermediate, SWELLING, HIVES, MIGRAINES, 10/28/15) Tetracycline (Verified Allergy, Intermediate, SWELLING, HIVES, ASTHMA ATTACK, 10/28/15) TREATED WITH EPI Latex1 -Allergic Contact Dermititis (Verified Allergy, Unknown, 07/16/15) Home Medications Scheduled Albuterol Soln (Proventil 0.083% 2.5MG/3ML), 1 INHA INH PRN Calcium Citrate (Calcium Citrate), 1 TAB PO HS Cholecalciferol (Vitamin D3), 5,000 MG PO DAILY Epinephrine (Epipen), 0.3 MG IM UD Fexofenadine Hcl (Anna *), 60 MG PO QPM Fluticasone Prop/Salmeterol (Advair Diskus 250/50 Mcg *), 1 PUFF INH BID [magnesium], 250 MG PO HS Scheduled PRN Albuterol (Ventolin), 2 PUFFS INH QID PRN for SOB/Wheezing Cyclobenzaprine HCl (Cyclobenzaprine HCl), 1 TAB PO for Muscle Spasms Diphenhydramine Hcl (Benadryl), 25 MG PO Q4H PRN for ALLERGIC REACTION Ondansetron Tab (Zofran), 8 MG PO TID PRN for Nausea or Vomiting Rizatriptan Benzoate (Maxalt), 10 MG PO for Headache Sumatriptan Succinate (Imitrex Statdose), 4 MG SC UD PRN for Migraine Review of Systems Gastrointestinal: Symptoms: WNL GI Comments: Car sick Oral: Symptoms: No Problems Respiratory: Symptoms: WNL Other Respiratory: SOB/Cough from 8 weeks of resp infection - just finished steroids Urinary: Symptoms: WNL Skin: Symptoms: No Problems Physical Exam Vital Signs Date Time Temp Pulse Resp B/P (MAP) Pulse Ox O2 Delivery O2 Flow Rate FiO2 11/06/17 14:24 37.0 92 16 136/88 96 Fatigue: None General Appearance: no apparent distress Eyes: normal inspection, EOMI ENT: normal ENT inspection, hearing grossly normal Respiratory/Chest: lungs clear, no respiratory distress, no accessory muscle use Cardiovascular: regular rate, rhythm, no gallop, no murmur Abdomen: non tender, soft, no organomegaly Genitourinary - Female: external genitalia normal, + pertinent finding (Pelvic examination by Dr. Haines revealed foreshortening of the vagina. There are postoperative changes at the apex. There were no visible or palpable masses. There is no vaginal discharge.) Extremities: no pedal edema Neurologic/Psychiatric: no motor/sensory deficits, alert, normal mood/affect Pain Management Patient Reports Pain: Yes Side: Left Pain Location: Foot Initial Pain Intensity: 5.0 Pain Management Plan This does not require any regular medication. She does not require any pain management through our office. Laboratory Laboratory Results: were reviewed Laboratory Comments: Reviewed in the interim history. Pathology Pathology Results: and pertinent findings noted in HPI Imaging Imaging Studies: were reviewed Imaging Comments Reviewed in the interim history. Assessment & Plan Plan: Patient is scheduled for recheck laboratory studies November 20, 2017. She then will be seeing the gynecologic oncologist. At that time they will discuss follow-up imaging. She will continue regular follow-up with medical oncology. She will use the vaginal dilator if she does not become sexually active. We asked her to return to our office in 6 months. She may call if she has any questions or concerns in the interim. Assessment & Plan (Attending) I agree with note created by Rubi Martinez PA-C. I reviewed the patient's chart and information with her. I have examined and evaluated the patient. I reviewed relevant clinical information and answered the patient's and/or family' s questions. BAND LINING BANDER Total Time In Follow-Up I spent 25 minutes speaking to the patient in performing examination. I spent 15 minutes reviewing information and completing this note. AK Total Time (Attending) In Follow-Up I spent 15 minutes examining and counseling the patient. BAND LINING BANDER Copy To Andrea Naylor MD; Moe Campos M.D.; Pk Whitney M.D.
== END | disposition home or self-care (01) ==
LOC: C.ONC 14:20
PROVIDERS: ATTEND Physician Assistant Medical
DX: Z08 Encounter for follow-up examination after completed treatment for malignant neoplasm (principal); Z92.3 Personal history of irradiation; Z85.43 Personal history of malignant neoplasm of ovary

== ENCOUNTER → 2018-01-08 | Outpatient (CLI) | payer OTHER, BC ==
[~2018-01-08] MED LIST changes: -SNQ/25 PO
[2018-01-08 16:27] LABS: BASO % 0.2 %; BASO ABS # 0.01 K/uL (0-0.2); EOS % 2.5 %; EOS ABS # 0.16 K/uL (0-0.5); HEMATOCRIT 41.9 % (37-47); HEMOGLOBIN 14.5 g/dL (12.0-16.0); IG# 0.01 K/uL (0.00-0.02); LYMPH % 20.9 %; LYMPH ABS # 1.33 K/uL (1.2-3.4); MEAN CELL VOLUME 88.8 fL (80-100); MEAN CORPUSCULAR HEMOGLOBIN 30.7 pg (25-34); MEAN CORPUSCULAR HGB CONC 34.6 g/dl (32-36); MEAN PLATELET VOLUME 9.4 fL (7.4-10.4); MONO % 10.4 %; MONO ABS # 0.66 K/uL (0.11-0.59); NEUT % 65.8 %; NEUT ABS # 4.18 K/uL (1.4-6.5); PLATELET COUNT 297 K/uL (130-400); RED CELL DISTRIBUTION WIDTH CV 13.3 % (11.5-14.5); RED CELL DISTRIBUTION WIDTH SD 43.7 fL (36.4-46.3); WHITE BLOOD COUNT 6.35 K/uL (4.8-10.8)
[2018-01-08 16:49] LABS: ALBUMIN 3.9 gm/dl (3.4-5.0); ALT/SGPT 24 U/L (12-78); AST/SGOT 14 U/L (15-37); BLOOD UREA NITROGEN 21 mg/dl (7-18); CALCIUM 9.3 mg/dl (8.5-10.1); CARBON DIOXIDE 28 mmol/L (21-32); CREATININE 0.91 mg/dl (0.60-1.20); GLUCOSE 93 mg/dl (70-99); SODIUM 140 mmol/L (136-145)
[2018-01-08 16:51] LABS: ALKALINE PHOSPHATASE 67 U/L (45-117); TOTAL PROTEIN 7.7 gm/dl (6.4-8.2)
== END | disposition home or self-care (01) ==
LOC: C.LABSPEC 16:15
PROVIDERS: ATTEND Internal Medicine Hematology & Oncology
DX: C56.9 Malignant neoplasm of unspecified ovary (principal)

== ENCOUNTER → 2018-03-22 | Outpatient (CLI) | payer OTHER ==
[2018-03-22 14:47] LABS: BASO % 0.3 %; BASO ABS # 0.02 K/uL (0-0.2); EOS % 2.4 %; EOS ABS # 0.16 K/uL (0-0.5); HEMATOCRIT 41.9 % (37-47); HEMOGLOBIN 14.4 g/dL (12.0-16.0); IG# 0.01 K/uL (0.00-0.02); LYMPH ABS # 1.45 K/uL (1.2-3.4); MEAN CELL VOLUME 88.2 fL (80-100); MEAN CORPUSCULAR HEMOGLOBIN 30.3 pg (25-34); MEAN CORPUSCULAR HGB CONC 34.4 g/dl (32-36); MEAN PLATELET VOLUME 9.6 fL (7.4-10.4); MONO % 9.4 %; MONO ABS # 0.62 K/uL (0.11-0.59); NEUT % 65.7 %; NEUT ABS # 4.33 K/uL (1.4-6.5); PLATELET COUNT 336 K/uL (130-400); RED CELL DISTRIBUTION WIDTH CV 13.9 % (11.5-14.5); WHITE BLOOD COUNT 6.59 K/uL (4.8-10.8)
[2018-03-22 15:10] LABS: ALT/SGPT 29 U/L (12-78); AST/SGOT 20 U/L (15-37); BLOOD UREA NITROGEN 21 mg/dl (7-18); CALCIUM 9.1 mg/dl (8.5-10.1); CARBON DIOXIDE 27 mmol/L (21-32); CREATININE 0.69 mg/dl (0.60-1.20); GLUCOSE 87 mg/dl (70-99); POTASSIUM 4.1 mmol/L (3.5-5.1); SODIUM 139 mmol/L (136-145)
[2018-03-22 15:13] LABS: ALKALINE PHOSPHATASE 60 U/L (45-117); TOTAL PROTEIN 7.5 gm/dl (6.4-8.2)
== END | disposition home or self-care (01) ==
LOC: C.LABSPEC 14:32
PROVIDERS: ATTEND Nurse Practitioner Family
DX: C56.9 Malignant neoplasm of unspecified ovary (principal)

== ENCOUNTER 2024-04-21 11:58 | Inpatient (IN) ==
[2024-04-21 13:16] LABS: Basophils # (auto) 0.02 K/uL (0.00-0.20); Basophils % (auto) 0.7 %; Eosinophils # (auto) 0.05 K/uL (0.00-0.50); Eosinophils % (auto) 1.8 %; Hematocrit (blood only) 34.7 % (37.0-47.0); Hemoglobin 11.9 g/dl (12.0-16.0); Immature Granulocytes # (auto) 0.01 K/uL (0.01-0.20); Immature Granulocytes % (auto) 0.4 %; Lymphocytes # (auto) 0.35 K/uL (1.20-3.40); Lymphocytes % (auto) 12.3 %; Mean Corpuscular Hemoglobin 33.1 pg (25.0-34.0); Mean Corpuscular Hgb Conc 34.3 g/dL (32.0-36.0); Mean Corpuscular Volume 96.7 fL (80.0-100.0); Mean Platelet Volume 10.8 fL (9.4-12.4); Monocytes # (auto) 0.77 K/uL (0.11-0.59); Monocytes % (auto) 27.1 %; Neutrophils # (auto) 1.64 K/uL (1.40-6.50); Neutrophils % (auto) 57.7 %; Platelet Count 246 K/uL (130-400); Red Blood Count 3.59 M/uL (4.20-5.40); White Blood Count 2.84 K/ul (4.8-10.8)
[2024-04-21 13:23] LABS: INR 1.2 (0.9-1.1); Partial Thromboplastin Ratio 1.1; Partial Thromboplastin Time 29 Seconds (21-31); Prothrombin Time 12.4 Seconds (9.0-12.0)
[2024-04-21 13:26] LABS: Albumin Level 3.1 gm/dl (3.4-5.0); Bilirubin,Total 0.9 mg/dl (0.2-1.0); Calcium 9.2 mg/dl (8.6-10.3); Potassium 3.7 mmol/L (3.5-5.1)
[2024-04-21 13:32] LABS: Albumin Globulin Ratio 0.8 (0.9-2); BUN Creatinine Ratio 27.9 (10-20); Creatinine Clr Calc Pharmacy 99.9 ml/min; Est GFR (Non-African American) 99.2 ml/min; Total Protein 7.1 gm/dl (6.0-8.3)
[2024-04-21 13:37] LABS: Troponin I High Sensitivity 4.9 pg/ml (0-14)
[2024-04-21 13:56] LABS: Adenovirus PCR Not Detected (NotDetected); Bordetella parapertussis PCR Not Detected (NotDetected); Bordetella pertussis PCR Not Detected (NotDetected); Chlamydia pneumoniae PCR Not Detected (NotDetected); Coronavirus 229E PCR Not Detected (NotDetected); Coronavirus CoV-2 (COVID19)PCR Not Detected (NotDetected); Coronavirus HKU1 PCR Not Detected (NotDetected); Coronavirus NL63 PCR Not Detected (NotDetected); Coronavirus OC43PCR Not Detected (NotDetected); Human Metapneumovirus PCR Not Detected (NotDetected); Influenza A PCR Not Detected (NotDetected); Influenza B PCR Not Detected (NotDetected); Mycoplasma pneumoniae PCR Not Detected (NotDetected); Parainfluenza Virus 1 PCR Not Detected (NotDetected); Parainfluenza Virus 2 PCR Not Detected (NotDetected); Parainfluenza Virus 3 PCR Not Detected (NotDetected); Parainfluenza Virus 4 PCR Not Detected (NotDetected); Respiratory Syncytial VirusPCR Not Detected (NotDetected); Rhinovirus/Enterovirus PCR Not Detected (NotDetected)
--- NOTE | 2024-04-21 14:04 | XRay Report ---
XR chest 1V not portable HISTORY: Chest pain, nonspecific COMPARISON: Chest 04/18/2024. FINDINGS: No pneumothorax. There is a left subclavian Port-A-Cath which results in the SVC. The heart is normal in size. Multifocal airspace opacities within the mid to lower lung zones, diffuse reticul onodular interstitial thickening, and small bilateral pleural effusions persists. No acute fractures identified. IMPRESSION: No significant change in the multifocal airspace opacities, diffuse reticulonodular interstitial thic kening, and small bilateral pleural effusions. This favors a pneumonia. ACT 112: Negative or not required by law. Electronically signed by: Rhys Pope M.D. 04/21/2024 2:02 PM
[2024-04-21] MEDS: diphenhydrAMINE 50 MG/ML VIAL IV STA (15:55)
[2024-04-21] MEDS: methylPREDNISolone 125 MG/2 ML VIAL IV STA (16:06)
[2024-04-21] MEDS: methylPREDNISolone 125 MG/2 ML VIAL ONE (16:06)
--- NOTE | 2024-04-21 16:07 | CT Scan Report ---
CT SCAN OF THE CHEST WITHOUT IV CONTRAST CLINICAL HISTORY: Dyspnea. Pneumonia. COMPARISON STUDY: Chest x-ray dated 04/21/2024. Chest CT dated 05/06/2010. TECHNIQUE: CT scan of the thorax was performed from the thoracic inlet to the upper abdomen. Images are reviewed in the axial, sagittal, and coronal planes. IV contrast was not administered for this ex amination as per the referring clinician. A dose lowering technique was utilized adhering to the kristin vielka of [place]. CT DOSE: 268.19 mGy.cm FINDINGS: Thyroid: Imaged portions of the thyroid gland are normal in size and attenuation. Thoracic aorta: There is aneurysmal dilatation of the ascending thoracic aorta which measures up to 4 .4 cm diameter. The remainder of the thoracic aorta is normal in caliber, and the arch demonstrates s tandard 3-vessel anatomy. Heart: A left subclavian central venous infusion port is in place. The heart is top normal in size an d without pericardial effusion. The pulmonary trunk is dilated, measuring 3.3 cm in diameter. This pablo ggests pulmonary artery hypertension. Lungs and pleural spaces: Interlobular septal thickening suggests fluid overload/congestive change. T here are small pleural effusions. Pleural thickening is noted at the left lung base. Confluent patchy /nodular airspace opacities are seen throughout the right lower lobe. Numerous additional foci of nod ularity and intralobular septal thickening are seen throughout both lungs. The appearance favors mult ifocal pulmonary metastatic disease with a neurogenic spread of tumor. A superimposed pneumonia at th e right lung base is not excluded. The trachea and central airways are clear Mediastinum: A mildly enlarged prevascular node on image #67 measures 1.5 x 0.9 cm. No additional enl arged mediastinal lymph nodes are seen. Kadie: Not well assessed without IV contrast. Axillae: There is no axillary lymphadenopathy. Upper abdomen: There is evidence of extensive/multifocal hepatic metastatic disease. A industrial relations representative right lobe lesion on image #20 and 31 measures 3.6 cm. There is perihepatic ascites. Skeletal structures: No lytic or blastic bony lesions are seen. There are subacute-appearing left ant erior rib fractures. IMPRESSION: 1. There are small pleural effusions seen bilaterally, with overlying pleural thickening on the left. 2. There are confluent patchy nodular airspace opacities at the right lung base. Additionally, there is diffuse intralobular septal thickening with numerous additional foci of nodularity seen throughout both lungs. The appearance favors multifocal pulmonary metastatic disease with lymphangitic spread o f tumor. A superimposed pneumonia at the right lung base would be impossible to exclude. Clinical cor relation will be essential. These findings should be correlated with the oncological history and any more recent prior outside imaging studies. 3. There is evidence of multifocal hepatic metastatic disease. 4. Perihepatic ascites. 5. There is aneurysmal dilatation of the ascending thoracic aorta which measures up to 4.4 cm in diam eter. 6. There is a mildly enlarged high prevascular mediastinal lymph node. 7. Additional findings as above. ACT 112: Negative or not required by law. Electronically signed by: Scott Michaels M.D. 04/21/2024 4:05 PM
[2024-04-21] MEDS: cefTRIAXone SODIUM 2,000 MG/50 ML BAG IV STA (16:15)
[2024-04-21] MEDS: AZITHROMYCIN 500 MG in DEXTROSE 5% 250 ML IV STA (16:47)
--- NOTE | 2024-04-21 17:01 | Emergency Department Note ---
Impression & Plan Hemoptysis, Shortness of breath, Pleural effusion, Metastatic cancer ED Provider Note NAME: RUDDY BAIG AGE: 59 SEX: F : 1965 ARRIVES VIA: Walk-In INFORMANT: Patient ED PROVIDER(S): Adalberto Finch DO CHIEF COMPLAINT: shortness of breath, hemoptysis HPI: Patient is a 59-year-old female with metastatic ovarian cancer, cognitive dysfunction who who presents to the ER for hemoptysis which has been going on for the past week associated with shortness of breath which has been getting worse for the past 2 weeks and commendation with a cough. Patient denies any fevers. She notes that she has pain with swallowing sometimes and that has been present for the past 3 months. No headache or neck pain. No belly pain, nausea, vomiting or diarrhea. No dysuria, urgency or frequency. No other exacerbating or remitting factors. She notes yesterday she was coughing up several quarter size clots. Today it has only happened several times and not as frequently. ADDITIONAL HISTORY OBTAINED: Per HPI Chronic Medical/Social Conditions Affecting Care: Per HPI PAST MEDICAL HISTORY:See Below PAST SURGICAL HISTORY:See Below FAMILY HISTORY:See Below SOCIAL HISTORY:See Below HOME MEDICATIONS:See Below ALLERGIES:See Below VITALS:See Below PHYSICAL EXAMINATION: GENERAL: Sitting up in bed, alert, well appearing, well nourished, no distress, non-toxic EYE EXAM: normal conjunctiva. OROPHARYNX:mucous membranes are moist LUNGS: Clear to auscultation. Normal chest wall mechanics HEART: no murmurs, S1 normal and S2 normal ABDOMEN: abdomen soft, non-tender, normo-active bowel sounds, no masses, no rebound or guarding. BACK: Back is symmetrical on inspection and there is no deformity, no midline tenderness, no CVA tenderness. SKIN: no rashes and no bruising UPPER EXTREMITIES: upper extremities are grossly normal. LOWER EXTREMITIES: No pitting edema. NEURO EXAM: Normal sensorium, cranial nerves II-XII grossly intact, normal speech, no gross weakness of arms, no gross weakness of legs. MEDICAL DECISION MAKING: Patient is a 59-year-old female who presents ER for the above-stated complaint. IV was established blood work was obtained. Labs show mild leukopenia 2.8 and a mild anemia 11.9. INR unremarkable at 1.2. BMP along with LFTs bilirubin was unremarkable. Troponin was negative. Viral panel was clean. Patient was given azithromycin and Rocephin Benadryl and steroids. Chest x-ray with infiltrates in the lower lobe. Patient has an anaphylactic reaction to IV contrast and consequently noncontrast of the chest was obtained which showed questionable pneumonia and metastatic disease with pleural effusions. Patient was updated in regards to this. I discussed with the hospitalist. Discussed with Dr. Guillaume from pulmonology who recommended nebulized budesonide. Patient was already given IV steroids 125 Solu-Medrol. He will follow her in the morning unless things change. Patient was updated bedside and discussed with the hospitalist for further evaluation management treatment. An additional history was obtained by who is present at bedside who notes that she was coughing up blood this morning but the patient had forgotten. Consults/Care Managements Discussions: Per [facility] Triage Nursing notes reviewed. Limited review of prior medical records performed Vital Signs: reviewed and remarkable for no significant abnormalities Differential diagnosis: Differential diagnoses includes but is not limited to pneumonia, bronchitis, COPD/Asthma exacerbation, pneumothorax, pulmonary embolism, congestive heart failure, acute coronary syndrome ER treatment provided: See below Diagnostics interpreted by me include EKG and cardiac monitoring as listed below: -Cardiac Monitoring: An order was placed for continuous cardiac monitoring. The monitor shows a rate of 92 with sinus rhythm. -ECG: Sinus rhythm rate of 107 Normal axis No PVCs Nonspecific ST or T wave changes in the inferior leads -Laboratory studies:Interpreted by me as stated above in MDM and shown below. Imaging studies: Xrays: As interpreted by me: Portable AP upright 1 view of the chest shows infiltrates in the lower lobes with effusion CTs show: CT of the chest as described above Procedures:none Critical Care: None Past Med/Surg History Problem List (Updated 04/21/24 @ 17:05 by Adalberto Finch DO) Metastatic cancer (Acute) Pleural effusion (Acute) Shortness of breath (Acute) Hemoptysis (Acute) Pleural effusion, left Right peroneal nerve palsy Pulmonary nodules/lesions, multiple Cognitive dysfunction Chemotherapy-induced peripheral neuropathy Idiopathic polyneuropathy Ovarian cancer (Acute) Post herpetic neuralgia (Acute) Asthma Common bile duct (CBD) obstruction Medical History (Updated 04/21/24 @ 17:05 by Adalberto Finch DO) Migraine without status migrainosus, not intractable History of biliary stent insertion has currently Peripheral neuropathy 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; NO RECENT ISSUES Ureter injury CONGENITAL Depression Sleep apnea NO DEVICE Asthma NO RECENT ISSUES Surgical History History of cataract surgery History of ERCP EGD/EUS/ERCP= 06/12/18= GRADE VIEW 3, MAC 3.0, ETT 7.0 AT [facility] History of ureter repair 30+ YEARS AGO History of total abdominal hysterectomy and bilateral salpingo-oophorectomy History of laparoscopy History of breast biopsy History of tooth extraction History of tonsillectomy History of vascular access device A-PORT (LEFT CHEST) Family History Mother Skin cancer Father Lung cancer Social History Smoking Status: Never smoker Second Hand Exposure: No; Do You Dip or Chew Tobacco: No; Hx Alcohol Use: Yes Alcohol type: wine and hard liquor Hx Substance Use: Yes Substance Use Type Other:: cbd oil- has medical marijuana card Preferred Language: Greek Communication Ability: Effective Visual Impairment: No Limitations Target Aircraft [employer]ician Required: No Beliefs That Will Affect Care: None Current Living Situation: Spouse Feels Safe at Home: Yes Assistive Devices: Glasses Allergies Allergies Allergy/AdvReac Type Severity Reaction Status Date / Time bee venom protein (honey bee) Allergy Severe ANAPHYLAXIS Verified 01/23/24 09:27 Fish Containing Products Allergy Severe ANAPHYLAXIS Verified 01/23/24 09:27 TO SEAFOOD Iodinated Contrast Media Allergy Severe ANAPHYLAXIS Verified 01/23/24 09:27 monosodium glutamate Allergy Severe Anaphylaxis Verified 01/23/24 09:27 Penicillins Allergy Severe ANAPHYLAXIS Verified 01/23/24 09:27 shellfish derived Allergy Severe ANAPHYLAXIS Verified 01/23/24 09:27 TO SEAFOOD black walnut Allergy Intermediate SWELLING, Verified 01/23/24 09:27 HIVES AND ASTHMA ATTACK coconut Allergy Intermediate SWELLING, Verified 01/23/24 09:27 HIVES, ASTHMA ATTACK codeine Allergy Intermediate SWELLING, Verified 01/23/24 09:27 HIVES, ASTHMA ATTACK iodine Allergy Intermediate SWELLING, Verified 01/23/24 09:27 RASH, BLISTERS, BLEEDING tetracycline Allergy Intermediate SWELLING, Verified 01/23/24 09:27 HIVES, ASTHMA ATTACK latex Allergy Unknown SWELLING, Verified 01/23/24 09:27 BLEEDING AT SITE, BLISTERS gabapentin AdvReac Unknown Drowsy Unverified 01/23/24 09:27 Cantaloupe Allergy Intermediate SWELLING, Uncoded 01/23/24 09:27 HIVES, ASTHMA ATTACK Davidson Allergy Intermediate SWELLING, Uncoded 01/23/24 09:27 HIVES, MIGRAINES Seafood Allergy Unknown Unknown Uncoded 01/23/24 09:27 Home Meds Home Medications Medication Instructions Recorded Confirmed ondansetron 8 mg disintegrating 8 mg PO TID PRN Nausea #0 tabs 03/03/14 01/23/24 tablet diphenhydramine HCl 25 mg tablet 25 mg PO Q4H PRN Allergic Reaction 03/10/14 01/23/24 #0 caps magnesium 250 mg tablet 250 mg PO HS ##0 10/05/15 01/23/24 cholecalciferol (vitamin D3) 25 5,000 unit PO BID 30 days #0 tabs 11/06/17 01/23/24 mcg (1,000 unit) tablet docusate sodium 100 mg capsule 100 mg PO TID PRN Constipation 08/02/18 01/23/24 (Colace) prochlorperazine maleate 10 mg 10 mg PO UD PRN Nausea 08/02/18 01/23/24 tablet (Compazine) cetirizine 10 mg tablet (Zyrtec) 10 mg PO HS 06/19/19 01/23/24 phytonadione (vitamin K1) 1 mg/0.5 mg 07/12/21 01/23/24 mL injection solution (vitamin K) turmeric 100 mg-tadeo 150 1 cap PO QAM 07/12/21 01/23/24 mg-olive 50 mg-oreg 150 mg-capryl capsule vitamin B complex 1 cap PO QAM 07/12/21 01/23/24 vitamin K2 100 mcg capsule 100 mcg PO QAM 07/12/21 01/23/24 doxorubicin, peg-liposomal 2 mg/mL IV 01/29/23 01/23/24 intravenous suspension (Doxil) acyclovir 400 mg tablet 400 mg PO BID PRN 07/18/23 01/23/24 albuterol sulfate 2.5 mg/3 mL 2.5 mg inhalation Q4H PRN 01/23/24 01/23/24 (0.083 %) solution for nebulization cannabidiol topical PRN 01/23/24 estradiol 1 mg/gram (0.1 %) 1 packet transdermal .COMPLEX 01/23/24 01/23/24 transdermal gel packet loratadine 10 mg disintegrating 10 mg PO DAILY 01/23/24 01/23/24 tablet (Allergy Relief (loratadine)) lysine 500 mg tablet 1,000 mg PO TID 01/23/24 01/23/24 naproxen sodium 220 mg tablet 220 mg PO BID PRN 01/23/24 01/23/24 (Flanax (naproxen)) olopatadine 0.7 % eye drops 1 drp ophthalmic (eye) DAILY PRN 01/23/24 01/23/24 (Pataday Once Daily Relief) selenium 200 mcg capsule 200 mcg PO DAILY 01/23/24 01/23/24 vit C 180 mg-D3 10 mcg-zinc 5.5 cap PO 01/23/24 01/23/24 pe-joesgh-jccegfh-tadeo-herb capsule (Immune Support (vit c, d and zinc)) vitamin E (dl, acetate) 180 mg 180 mg PO DAILY 01/23/24 01/23/24 (400 unit) capsule zinc gluconate 25 mg tablet 50 mg PO DAILY 01/23/24 01/23/24 Previous Rx's Medication Instructions Recorded hydrocodone 5 mg-acetaminophen 325 1 tab PO DAILY PRN Pain #6 tabs 06/29/ mg tablet albuterol sulfate 90 mcg/actuation 2 puff inhalation Q4H PRN 07/18/23 aerosol inhaler (Ventolin HFA) Shortness Of Breath Or Wheezing #1 inhaler fluticasone 250 mcg-salmeterol 50 1 inh inhalation BID #60 ea 07/18/23 mcg/dose blistr powdr for inhalation (Advair Diskus) pregabalin 75 mg capsule (Lyrica) 75 mg PO .COMPLEX #90 caps 08/17/23 duloxetine 60 mg capsule,delayed 60 mg PO DAILY #30 caps 11/22/23 release duloxetine 30 mg capsule,delayed 30 mg PO DAILY #30 caps 12/25/23 release cyclobenzaprine 5 mg tablet See Rx Instructions .Route 01/23/24 .COMPLEX #90 tabs epinephrine 0.3 mg/0.3 mL 0.3 mg (0.3 mL) IM UD PRN ALLERGY 01/23/24 injection, auto-injector REACTIONS #2 ea Results & Data (ED) Vital Signs Vital Signs - 24 hr 04/21/24 12:01 04/21/24 15:25 04/21/24 15:27 Temperature 36.7 C Temperature Source Temporal Artery Scan Pulse Rate 113 H 95 H Pulse Rate [Apical] 94 H Respiratory Rate 18 18 Respiratory Effort / Characteristics Spontaneous Non-Labored Spontaneous Respiratory Depth Normal Normal Respiratory Pattern Regular Blood Pressure 121/67 Blood Pressure [Right Arm] 120/74 Blood Pressure Mean 85 Blood Pressure Mean [Right Arm] 89 Pulse Oximetry 97 97 Oxygen Delivery Method Room Air Room Air Sepsis Recent Fever Within 48 Hours No Sepsis New/Unexplained Change in Mental Status No Sepsis Action Taken by Nursing No Action Required 04/21/24 15:27 Temperature Temperature Source Pulse Rate Pulse Rate [Apical] Respiratory Rate Respiratory Effort / Characteristics Respiratory Depth Respiratory Pattern Blood Pressure Blood Pressure [Right Arm] Blood Pressure Mean Blood Pressure Mean [Right Arm] Pulse Oximetry 97 Oxygen Delivery Method Room Air Sepsis Recent Fever Within 48 Hours Sepsis New/Unexplained Change in Mental Status Sepsis Action Taken by Nursing Laboratory Data 04/21/24 12:31 04/21/24 12:31 Lab Results 04/21/24 04/21/24 Range/Units 12:31 12:40 WBC 2.84 L (4.8-10.8) K/ul RBC 3.59 L (4.20-5.40) M/uL Hgb 11.9 L (12.0-16.0) g/dl Hct 34.7 L (37.0-47.0) % MCV 96.7 (80.0-100.0) fL MCH 33.1 (25.0-34.0) pg MCHC 34.3 (32.0-36.0) g/dL RDW Std Deviation 71.0 H (36.4-46.3) fL RDW Coeff of Ebenezer 20.0 H (11.5-14.5) % Plt Count 246 (130-400) K/uL MPV 10.8 (9.4-12.4) fL Immature Gran % (Auto) 0.4 % Neut % (Auto) 57.7 % Lymph % (Auto) 12.3 % Rutherford % (Auto) 27.1 % Eos % (Auto) 1.8 % Baso % (Auto) 0.7 % Neut # (Auto) 1.64 (1.40-6.50) K/uL Lymph # (Auto) 0.35 L (1.20-3.40) K/uL Rutherford # (Auto) 0.77 H (0.11-0.59) K/uL Eos # (Auto) 0.05 (0.00-0.50) K/uL Baso # (Auto) 0.02 (0.00-0.20) K/uL Immature Gran # (Auto) 0.01 (0.01-0.20) K/uL PT 12.4 H (9.0-12.0) Seconds INR 1.2 H (0.9-1.1) APTT 29 (21-31) Seconds PTT Ratio 1.1 Sodium 135 L (136-145) mmol/L Potassium 3.7 (3.5-5.1) mmol/L Chloride 99 (98-107) mmol/L Carbon Dioxide 26 (21-32) mmol/L Anion Gap 10 (3-11) BUN 17 (6-23) mg/dl Creatinine 0.61 (0.6-1.2) mg/dl Est Cr Clr Drug Dosing 99.9 ml/min Est GFR ( Amer) 115.0 ml/min Est GFR (Non-Af Amer) 99.2 ml/min BUN/Creatinine Ratio 27.9 H (10-20) Glucose 96 (70-99(Fasting)) mg/dl Calcium 9.2 (8.6-10.3) mg/dl Total Bilirubin 0.9 (0.2-1.0) mg/dl AST 80 H (13-39) U/L ALT 35 (7-52) U/L Alkaline Phosphatase 252 H (34-104) U/L Troponin I High Sens 4.9 (0-14) pg/ml Total Protein 7.1 (6.0-8.3) gm/dl Albumin 3.1 L (3.4-5.0) gm/dl Globulin 4.0 (2.5-4.0) gm/dl Albumin/Globulin Ratio 0.8 L (0.9-2) Adenovirus (PCR) Not Detected (NotDetected) B. pertussis DNA (PCR) Not Detected (NotDetected) B.parapertussis DNA PCR Not Detected (NotDetected) C. pneumoniae DNA (PCR) Not Detected (NotDetected) Coronavirus OC43 (PCR) Not Detected (NotDetected) Coronavirus HKU1 (PCR) Not Detected (NotDetected) Coronavirus 229E (PCR) Not Detected (NotDetected) SARS-CoV-2 (PCR) Not Detected (NotDetected) Coronavirus NL63 (PCR) Not Detected (NotDetected) Human Metapneumovir PCR Not Detected (NotDetected) Influenza Type A (PCR) Not Detected (NotDetected) Influenza Type B (PCR) Not Detected (NotDetected) M. pneumoniae (PCR) Not Detected (NotDetected) Parainfluenza 1 (PCR) Not Detected (NotDetected) Parainfluenza 2 (PCR) Not Detected (NotDetected) Parainfluenza 3 (PCR) Not Detected (NotDetected) Parainfluenza 4 (PCR) Not Detected (NotDetected) RSV (PCR) Not Detected (NotDetected) Entero/Rhino (PCR) Not Detected (NotDetected) Administered Medications Azithromycin 500 mg/ Dextrose 255 mls @ 127.5 mls/hr IV NOW STA Stop: 04/21/24 18:03 Last Admin: 04/21/24 16:47 Dose: 127.5 mls/hr Documented By: ANGELA Discontinued Medications Diphenhydramine HCl (Diphenhydramine 50 Mg/Ml Vial) 50 mg IV NOW STA Stop: 04/21/24 13:30 Last Admin: 04/21/24 15:55 Dose: Not Given Documented By: ANGELA Ceftriaxone Sodium (Rocephin) 2,000 mg in 50 mls @ 100 mls/hr IV NOW STA Stop: 04/21/24 16:33 Last Infusion: 04/21/24 16:47 Dose: Infused Documented By: Admin: 04/21/24 16:15 Dose: 100 mls/hr Documented By: ANGELA Methylprednisolone (Methylprednisolone 125 Mg/2 Ml Vial) 125 mg IV NOW STA Stop: 04/21/24 13:30 Last Admin: 04/21/24 16:06 Dose: 125 mg Documented By: ANGELA Methylprednisolone (Methylprednisolone 125 Mg/2 Ml Vial) Confirm Administered Dose 125 mg .ROUTE .STK-MED ONE Stop: 04/21/24 15:56 Last Admin: 04/21/24 16:06 Dose: Not Given Documented By: ANGELA Imaging Data Radiologist's Impression: Chest X-Ray 04/21/24 12:08 XR chest 1V not portable HISTORY: Chest pain, nonspecific COMPARISON: Chest 04/18/2024. FINDINGS: No pneumothorax. There is a left subclavian Port-A-Cath which results in the SVC. The heart is normal in size. Multifocal airspace opacities within the mid to lower lung zones, diffuse reticulonodular interstitial thickening, and small bilateral pleural effusions persists. No acute fractures identified. IMPRESSION: No significant change in the multifocal airspace opacities, diffuse reticulonodular interstitial thickening, and small bilateral pleural effusions. This favors a pneumonia. ACT 112: Negative or not required by law. Electronically signed by: Rhys Pope M.D. 04/21/2024 2:[address] 04/21/24 15:34 CT SCAN OF THE CHEST WITHOUT IV CONTRAST CLINICAL HISTORY: Dyspnea. Pneumonia. COMPARISON STUDY: Chest x-ray dated 04/21/2024. Chest CT dated 05/06/2010. TECHNIQUE: CT scan of the thorax was performed from the thoracic inlet to the upper abdomen. Images are reviewed in the axial, sagittal, and coronal planes. IV contrast was not administered for this examination as per the referring clinician. A dose lowering technique was utilized adhering to the principles of ALARA. CT DOSE: 268.19 mGy.cm FINDINGS: Thyroid: Imaged portions of the thyroid gland are normal in size and attenuation. Thoracic aorta: There is aneurysmal dilatation of the ascending thoracic aorta which measures up to 4.4 cm diameter. The remainder of the thoracic aorta is normal in caliber, and the arch demonstrates standard 3-vessel anatomy. Heart: A left subclavian central venous infusion port is in place. The heart is top normal in size and without pericardial effusion. The pulmonary trunk is dilated, measuring 3.3 cm in diameter. This suggests pulmonary artery hypertension. Lungs and pleural spaces: Interlobular septal thickening suggests fluid overload/congestive change. There are small pleural effusions. Pleural thickening is noted at the left lung base. Confluent patchy/nodular airspace opacities are seen throughout the right lower lobe. Numerous additional foci of nodularity and intralobular septal thickening are seen throughout both lungs. The appearance favors multifocal pulmonary metastatic disease with a neurogenic spread of tumor. A superimposed pneumonia at the right lung base is not excluded. The trachea and central airways are clear Mediastinum: A mildly enlarged prevascular node on image #67 measures 1.5 x 0.9 cm. No additional enlarged mediastinal lymph nodes are seen. Kadie: Not well assessed without IV contrast. Axillae: There is no axillary lymphadenopathy. Upper abdomen: There is evidence of extensive/multifocal hepatic metastatic disease. A [employer]eles[employer] representative right lobe lesion on image #20 and 31 measures 3.6 cm. There is perihepatic ascites. Skeletal structures: No lytic or blastic bony lesions are seen. There are subacute-appearing left anterior rib fractures. IMPRESSION: 1. There are small pleural effusions seen bilaterally, with overlying pleural thickening on the left. 2. There are confluent patchy nodular airspace opacities at the right lung base. Additionally, there is diffuse intralobular septal thickening with numerous additional foci of nodularity seen throughout both lungs. The appearance favors multifocal pulmonary metastatic disease with lymphangitic spread of tumor. A superimposed pneumonia at the right lung base would be impossible to exclude. Clinical correlation will be essential. These findings should be correlated with the oncological history and any more recent prior outside imaging studies. 3. There is evidence of multifocal hepatic metastatic disease. 4. Perihepatic ascites. 5. There is aneurysmal dilatation of the ascending thoracic aorta which measures up to 4.4 cm in diameter. 6. There is a mildly enlarged high prevascular mediastinal lymph node. 7. Additional findings as above. ACT 112: Negative or not required by law. Electronically signed by: Scott Michaels M.D. 04/21/2024 4:05 PM Discharge Plan Visit Data Chief Complaint: Cough Stated Complaint: PNEUMONIA, VOMITING, COUGHING BLOOD ED Provider: Adalberto Finch Discharge Problem: Hemoptysis, Shortness of breath, Pleural effusion, Metastatic cancer Forms Stand Alone Forms: [facility] [employer] Prescriptions Prescriptions: No Action ondansetron 8 mg Tablet,Disintegrating 8 mg PO TID PRN (Reason: Nausea) Qty: 0 diphenhydramine HCl 25 mg Tablet 25 mg PO Q4H PRN (Reason: Allergic Reaction) Qty: 0 magnesium 250 mg Tablet 250 mg PO HS Qty: 0 cholecalciferol (vitamin D3) 1,000 unit Tablet 5,000 unit PO BID 30 Days Qty: 0 pregabalin [Lyrica] 75 mg capsule 75 mg PO .COMPLEX Qty: 90 5RF Rx Instructions: 75 mg PO in the AM and 150mg in the PM; duloxetine 60 mg capsule,delayed release(DR/EC) 60 mg PO DAILY Qty: 30 5RF duloxetine 30 mg capsule,delayed release(DR/EC) 30 mg PO DAILY Qty: 30 5RF cyclobenzaprine 5 mg tablet See Rx Instructions .ROUTE .COMPLEX Qty: 90 3RF Dose Instruction: TAKE 1 TABLET BY MOUTH THREE TIMES A DAY IF NEEDED FOR MUSCLE SPASM Rx Instructions: TAKE 1 TABLET BY MOUTH THREE TIMES A DAY IF NEEDED FOR MUSCLE SPASM doxorubicin, peg-liposomal [Doxil] 2 mg/mL suspension IV acyclovir 400 mg tablet 400 mg PO BID PRN albuterol sulfate [Ventolin HFA] 90 mcg/actuation HFA aerosol inhaler 2 puff INHALATION Q4H PRN (Reason: Shortness Of Breath Or Wheezing) Qty: 1 11RF fluticasone propion-salmeterol [Advair Diskus] 250-50 mcg/dose blister with device 1 inh INHALATION BID Qty: 60 11RF albuterol sulfate 2.5 mg /3 mL (0.083 %) solution for nebulization 2.5 mg inhalation Q4H PRN estradiol 1 mg/gram (0.1 %) gel in packet 1 packet transdermal .COMPLEX Rx Instructions: every 3 days naproxen sodium [Flanax (naproxen)] 220 mg tablet 220 mg PO BID PRN selenium 200 mcg capsule 200 mcg PO DAILY vitamin E (dl, acetate) 180 mg (400 unit) capsule 180 mg PO DAILY zinc gluconate 25 mg tablet 50 mg PO DAILY cannabidiol topical PRN Pataday Once Daily Relief 0.7 % drops 1 drp ophthalmic (eye) DAILY PRN loratadine [Allergy Relief (loratadine)] 10 mg tablet,disintegrating 10 mg PO DAILY Immune Support (vit c,d,zinc) 180 mg-10 mcg- 5.5 mg-150 mg capsule PO epinephrine 0.3 mg/0.3 mL auto-injector 0.3 mg IM UD PRN (Reason: ALLERGY REACTIONS) Qty: 2 2RF hydrocodone-acetaminophen 5-325 mg tablet 1 tab PO DAILY PRN (Reason: Pain) Qty: 6 0RF cetirizine [Zyrtec] 10 mg tablet 10 mg PO HS prochlorperazine maleate [Compazine] 10 mg Tablet 10 mg PO UD PRN (Reason: Nausea) docusate sodium [Colace] 100 mg Capsule 100 mg PO TID PRN (Reason: Constipation) lysine 500 mg tablet 1,000 mg PO TID vitamin K 1 mg/0.5 mL Solution vitamin B complex Capsule 1 cap PO QAM vitamin K2 100 mcg Capsule 100 mcg PO QAM fvjvwvcv-jlzl-ztzib-oreg-capry 100 mg-150 mg- 50 mg-150 mg Capsule 1 cap PO QAM Referrals Referrals: Pk Whitney MD [Primary Care Provider] - Discharge Problem: Metastatic cancer Qualifiers: Area of secondary neoplastic involvement: unspecified site Qualified Code(s): C 79.9 - Secondary malignant neoplasm of unspecified site
--- NOTE | 2024-04-21 17:43 | History & Physical Report ---
Date of Service April 21, 2024 Assessment & Plan (1) Metastatic cancer: (2) Pleural effusion: (3) Hemoptysis: (4) Asthma: (5) Pneumonia: Plan 59 year old female with history of metastatic ovarian cancer and asthma who presented here due to increased SOB and cough since 2 weeks ago found with superimposed pneumonia Pneumonia - In the setting of metastatic diseases and asthma - Leukopenia 2.11. + Tachycardia - CT chest without contrast: small pleural effusions seen bilaterally, with overlying pleural thickening on the left. Patchy nodular airspace opacities at the right lung base. Multifocal pulmonary metastatic disease. Aneurysmal dilatation of the ascending thoracic aorta which measures up to 4.4 cm in diameter. (stable from last CT 11/17) ( Iv contrast hold due to history of anaphylaxis) - S/p Azithromycin and Ceftriaxone IV, IV solumedrol 125 mg in ED - Pneumology consulted, aprec recommendations - Continue Albuterol nebulizer prn - Continue Ventolin - Continue Budesomide nebulizer - Robitussin prn for cough suppression - Sputum cultured ordered - Ceftriaxone IV q24hr - Azithromycin q24hr for atypical - MRSA nares ordered if positive broad abx - sputum culture ordered - CBC am Hemoptysis - No new episodes - Hemoglobin stable - Continue cough suppression - Continue to monitor - Will hold chemical DVT prophylaxis Asthma: - Continue home regimen Albuterol nebulizer prn - Continue Ventolin - Advair hold DVT prophylaxis: SCDs only due to episodes of hemoptysis Full code Diet: liquid diet History of Present Illness Primary Care Provider: Pk Whitney MD 59 year old female with history of metastatic ovarian cancer and asthma who presented here due to increased SOB and cough since 2 weeks ago. She refers cough has been increasing i frequency and intensity with no resolutions. She had an episodes of hemoptysis since yesterday, that she describe small clots. Last episode was this morning. She refers some bri looking sputum as well on Sunday which she attributed to an epistaxis event she got a couple of days before. she refers chest pain that is worse when coughing. She got an CXR done on 04/18 which showed multifocal airspace consolidation and was started on Levaquin. she refers having increased nausea and vomiting due to the cough. She refers having throat pain since 3 weeks ago as well. She has being eating less due to the nausea. she has history of metastatic ovarian cancer diagnosed on 2007, she has been treated with different rounds of chemotherapy. Last note of [facility]/Onco. Ct on 03/19 revealed metastatic hypotense hepatic lesions, as well as loculated regional fluid in the left upper quadrant that represented metastatic disease. Capboplatin was recently discontinue. current chemo regimen is Doxil and Avastatin. Last chemo was on this Sunday. ED course: Labs remarkable for leukopenia 2.8, mild anemia 11.9. Patient was given azithromycin and Rocephin Benadryl and IV steroids. Chest x-ray with infiltrates in the lower lobe and small pleural effusions. Ct chest without IV contrast showed which showed questionable pneumonia and metastatic disease with pleural effusions. Nebulized budesonide. Allergies Allergy/AdvReac Type Severity Reaction Status Date / Time bee venom protein (honey bee) Allergy Severe ANAPHYLAXIS Verified 01/23/24 09:27 Fish Containing Products Allergy Severe ANAPHYLAXIS Verified 01/23/24 09:27 TO SEAFOOD Iodinated Contrast Media Allergy Severe ANAPHYLAXIS Verified 01/23/24 09:27 monosodium glutamate Allergy Severe Anaphylaxis Verified 01/23/24 09:27 Penicillins Allergy Severe ANAPHYLAXIS Verified 01/23/24 09:27 shellfish derived Allergy Severe ANAPHYLAXIS Verified 01/23/24 09:27 TO SEAFOOD black walnut Allergy Intermediate SWELLING, Verified 01/23/24 09:27 HIVES AND ASTHMA ATTACK cantaloupe Allergy Intermediate Hives Verified 04/21/24 18:49 coconut Allergy Intermediate SWELLING, Verified 01/23/24 09:27 HIVES, ASTHMA ATTACK codeine Allergy Intermediate SWELLING, Verified 01/23/24 09:27 HIVES, ASTHMA ATTACK iodine Allergy Intermediate SWELLING, Verified 01/23/24 09:27 RASH, BLISTERS, BLEEDING tetracycline Allergy Intermediate SWELLING, Verified 01/23/24 09:27 HIVES, ASTHMA ATTACK latex Allergy Unknown SWELLING, Verified 01/23/24 09:27 BLEEDING AT SITE, BLISTERS gabapentin AdvReac Unknown Drowsy Unverified 01/23/24 09:27 Cantaloupe Allergy Intermediate SWELLING, Uncoded 01/23/24 09:27 HIVES, ASTHMA ATTACK [place] Allergy Intermediate SWELLING, Uncoded 01/23/24 09:27 HIVES, MIGRAINES Seafood Allergy Unknown Unknown Uncoded 01/23/24 09:27 Home Medications Medication Instructions Recorded Confirmed Type ondansetron 8 mg disintegrating 8 mg PO TID PRN Nausea #0 tabs 03/03/14 04/21/24 History tablet diphenhydramine HCl 25 mg tablet 25 mg PO Q4H PRN Allergic Reaction 03/10/14 04/21/24 History #0 caps magnesium 250 mg tablet 250 mg PO BID ##0 /05/1204/21/24 History cholecalciferol (vitamin D3) 25 5,000 unit PO BID 30 days #0 tabs 11/06/17 04/21/24 History mcg (1,000 unit) tablet docusate sodium 100 mg capsule 100 mg PO TID PRN Constipation 08/02/18 04/21/24 History (Colace) prochlorperazine maleate 10 mg 10 mg PO UD PRN Nausea 08/02/18 04/21/24 History tablet (Compazine) cetirizine 10 mg tablet (Zyrtec) 10 mg PO HS 06/19/19 04/21/24 History hydrocodone 5 mg-acetaminophen 325 1 tab PO DAILY PRN Pain #6 tabs 06/29/20 04/21/24 Rx mg tablet phytonadione (vitamin K1) 1 mg/0.5 mg 07/12/21 01/23/24 History mL injection solution (vitamin K) turmeric 100 mg-tadeo 150 1 cap PO QAM 07/12/21 04/21/24 History mg-olive 50 mg-oreg 150 mg-capryl capsule vitamin B complex 1 cap PO QAM 07/12/21 04/21/24 History vitamin K2 100 mcg capsule 100 mcg PO QAM 07/12/21 04/21/24 History doxorubicin, peg-liposomal 2 mg/mL IV 01/29/23 01/23/24 History intravenous suspension (Doxil) acyclovir 400 mg tablet 400 mg PO BID 07/18/23 04/21/24 History albuterol sulfate 90 mcg/actuation 2 puff inhalation Q4H PRN 07/18/23 04/21/24 Rx aerosol inhaler (Ventolin HFA) Shortness Of Breath Or Wheezing #1 inhaler fluticasone 250 mcg-salmeterol 50 1 inh inhalation BID #60 ea 07/18/23 04/21/24 Rx mcg/dose blistr powdr for inhalation (Advair Diskus) pregabalin 75 mg capsule (Lyrica) 75 mg PO .COMPLEX #90 caps 08/17/23 04/21/24 Rx duloxetine 60 mg capsule,delayed 60 mg PO DAILY #30 caps 11/22/23 04/21/24 Rx release duloxetine 30 mg capsule,delayed 30 mg PO DAILY #30 caps 12/25/23 04/21/24 Rx release albuterol sulfate 2.5 mg/3 mL 2.5 mg inhalation Q4H PRN Wheezing 01/23/24 04/21/24 History (0.083 %) solution for nebulization cannabidiol topical PRN Pain (Scale Score 1-3) 01/23/24 History cyclobenzaprine 5 mg tablet See Rx Instructions .Route 01/23/24 04/21/24 Rx .COMPLEX #90 tabs epinephrine 0.3 mg/0.3 mL 0.3 mg (0.3 mL) IM UD PRN ALLERGY 01/23/24 04/21/24 Rx injection, auto-injector REACTIONS #2 ea estradiol 1 mg/gram (0.1 %) 1 packet transdermal .COMPLEX 01/23/24 04/21/24 History transdermal gel packet loratadine 10 mg disintegrating 10 mg PO DAILY 01/23/24 04/21/24 History tablet (Allergy Relief (loratadine)) lysine 500 mg tablet 1,000 mg PO BID 01/23/24 04/21/24 History naproxen sodium 220 mg tablet 220 mg PO BID PRN Pain (Scale 01/23/24 04/21/24 History (Flanax (naproxen)) Score 1-3) olopatadine 0.7 % eye drops 1 drp ophthalmic (eye) DAILY PRN 01/23/24 01/23/24 History (Pataday Once Daily Relief) Dry Eyes selenium 200 mcg capsule 200 mcg PO DAILY 01/23/24 04/21/24 History vit C 180 mg-D3 10 mcg-zinc 5.5 cap PO 01/23/24 01/23/24 History xd-qfldwd-tnxxhxx-tadeo-herb capsule (Immune Support (vit c, d and zinc)) vitamin E (dl, acetate) 180 mg 180 mg PO DAILY 01/23/24 04/21/24 History (400 unit) capsule zinc gluconate 25 mg tablet 50 mg PO DAILY 01/23/24 04/21/24 History Past Med/Surg History Problem List (Updated 04/21/24 @ 17:37 by Temitope Lowery MD) Pneumonia Metastatic cancer (Acute) Pleural effusion (Acute) Shortness of breath (Acute) Hemoptysis (Acute) Pleural effusion, left Right peroneal nerve palsy Pulmonary nodules/lesions, multiple Cognitive dysfunction Chemotherapy-induced peripheral neuropathy Idiopathic polyneuropathy Ovarian cancer (Acute) Post herpetic neuralgia (Acute) Asthma Common bile duct (CBD) obstruction Medical History (Updated 04/21/24 @ 17:37 by Temitope Lowery MD) Migraine without status migrainosus, not intractable History of biliary stent insertion has currently Peripheral neuropathy 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; NO RECENT ISSUES Ureter injury CONGENITAL Depression Sleep apnea NO DEVICE Asthma NO RECENT ISSUES Surgical History History of cataract surgery History of ERCP EGD/EUS/ERCP= 06/12/18= GRADE VIEW 3, MAC 3.0, ETT 7.0 AT [facility] History of ureter repair 30+ YEARS AGO History of total abdominal hysterectomy and bilateral salpingo-oophorectomy History of laparoscopy History of breast biopsy History of tooth extraction History of tonsillectomy History of vascular access device A-PORT (LEFT CHEST) Family History Mother Skin cancer Father Lung cancer Social History Smoking Status: Never smoker Second Hand Exposure: No; Do You Dip or Chew Tobacco: No; Hx Alcohol Use: No Hx Substance Use: No Preferred Language: Telugu Communication Ability: Effective Visual Impairment: No Limitations Family Assessment Worker Required: No Beliefs That Will Affect Care: None Current Living Situation: Spouse Feels Safe at Home: Yes Safety Concerns: Feels Safe At This Time Assistive Devices: Cane, Glasses and Walker Review of Systems Review of Systems: as per HPI Physical Exam Constitutional: WD/WN, vitals as above Respiratory: normal respiratory effort, + labored breathing (while speaking ) and + cough; no respiratory distress and does not use accessory muscles Auscultation: + crackles (scant rales in the bases ); no wheezes Cardiovascular: RRR, no murmur, no edema Gastrointestinal (Abdomen): normal bowel sounds, soft, nontender, no hepatosplenomegaly Results & Data Results & Data Vital Signs (Past 12 Hours) Vital Signs Temp Pulse Pulse Resp BP BP Pulse Ox 04/21/24 15:27 97 04/21/24 15:27 94 H 18 120/74 97 04/21/24 15:25 95 H 04/21/24 12:01 36.7 C 113 H 18 121/67 97 O2 Del Method 04/21/24 15:27 Room Air 04/21/24 15:27 Room Air 04/21/24 15:25 04/21/24 12:01 Room Air Supervising Physician Co-Signing Physician Notes I personally saw and examined the patient. I independently reviewed the labs, EKG, imaging, problem list, medication list, past medical history and family history. I verified all leal points and agree with resident physician Dr Alex Lowery, with the following exceptions and/or additions: 59 year old female with metastatic ovarian cancer presents to the ER with hemoptysis and shortness of breath O/E HS increased rate, regular rhythm, no murmurs, Chest poor air entry b/l, no crackles, using accessory muscle use, Abdo SNT, no pedal edema. A/P Pneumonia - ceftriaxone + azithromycin, no wheezing to suggest asthma exacerbation Hemoptysis - improving, monitor Hgb, consult pulmonology Resident Activity Tracking Resident Involvement: Resident Care Provided Care Provided: Adult Hospital Medicine (1) Metastatic cancer Area of secondary neoplastic involvement: unspecified site Qualified Code(s): C79.9 - Secondary malignant neoplasm of unspecified site
[2024-04-21] MEDS: guaiFENesin/DEXTROM SYRUP 100MG/10MG 5ML UDC PO ONE (17:44)
[2024-04-21] MEDS: BENZONATATE 100 MG CAPSULE PO ONE (17:44)
[2024-04-21] MEDS: BUDESONIDE 0.5 MG/2 ML VIAL (PULMICORT) NEB STA (18:04)
[2024-04-21] MEDS ORDERED: ACYCLOVIR 400 MG TAB PO PRN (18:44)
[2024-04-21] MEDS ORDERED: ALBUTEROL HFA 8 GM INHALER INH PRN (18:44)
[2024-04-21] MEDS ORDERED: HYDROCODONE/ACETAMOPHEN 5/325MG TAB PO PRN (18:44)
[2024-04-21] MEDS ORDERED: ALBUTEROL 0.083% NEBU SOLN 3 ML VIAL NEB PRN (18:44)
[2024-04-21] MEDS ORDERED: PROCHLORPERAZINE MALEATE 10 MG TAB PO PRN (18:44)
[2024-04-21] MEDS ORDERED: ONDANSETRON INJ 2 MG/ML 2 ML VIAL IV PRN (18:44)
[2024-04-21] MEDS: FORMOTEROL 20 MCG/2 ML VIAL NEB SCH (19:57)
[2024-04-21] MEDS: BUDESONIDE 0.5 MG/2 ML VIAL (PULMICORT) NEB SCH (19:57)
[2024-04-21] MEDS: DULoxetine HCL 60 MG CAP PO SCH (20:27)
[2024-04-21] MEDS: MAGNESIUM OXIDE 400 MG TAB PO SCH (20:27)
[2024-04-21] MEDS: PREGABALIN 150 MG CAP PO SCH (20:27)
[2024-04-21] MEDS: CETIRIZINE HCL 10 MG TABLET PO SCH (20:28)
[2024-04-21] MEDS: CHOLECALCIFEROL 125 MCG (5,000 UNITS) TAB PO SCH (20:28)
[2024-04-21] MEDS: CYCLOBENZAPRINE HCL 5 MG TAB PO PRN (21:34)
--- NOTE | 2024-04-22 05:44 | Billing Data ---
Date of Service April 21, 2024 Coding Level of Care Code 48033 INT INP/OBS CARE
[2024-04-22 07:31] LABS: INR 1.1 (0.9-1.1)
[2024-04-22 07:38] LABS: Est GFR (African American) 125.3 ml/min; Potassium 3.8 mmol/L (3.5-5.1)
[2024-04-22 07:39] LABS: Albumin Globulin Ratio 0.8 (0.9-2); BUN Creatinine Ratio 38.3 (10-20); Bilirubin,Total 0.7 mg/dl (0.2-1.0); Calcium 8.5 mg/dl (8.6-10.3); Creatinine Clr Calc Pharmacy 131.6 ml/min; Est GFR (Non-African American) 108.1 ml/min; Globulin 3.6 gm/dl (2.5-4.0); Total Protein 6.6 gm/dl (6.0-8.3)
[2024-04-22 07:40] LABS: Hematocrit (blood only) 30.6 % (37.0-47.0); Hemoglobin 10.2 g/dl (12.0-16.0); Immature Granulocytes # (auto) 0.01 K/uL (0.01-0.20); Immature Granulocytes % (auto) 0.5 %; Lymphocytes % (auto) 10.2 %; Mean Corpuscular Hemoglobin 32.5 pg (25.0-34.0); Mean Corpuscular Hgb Conc 33.3 g/dL (32.0-36.0); Mean Corpuscular Volume 97.5 fL (80.0-100.0); Mean Platelet Volume 10.6 fL (9.4-12.4); Monocytes % (auto) 5.1 %; Neutrophils # (auto) 1.66 K/uL (1.40-6.50); Neutrophils % (auto) 84.2 %; Platelet Count 283 K/uL (130-400); RDW Coefficient of Variation 19.9 % (11.5-14.5); RDW Standard Deviation 70.6 fL (36.4-46.3); Red Blood Count 3.14 M/uL (4.20-5.40); White Blood Count 1.97 K/ul (4.8-10.8)
[2024-04-22] MEDS: VITAMIN B COMPLEX TAB PO SCH (08:31)
[2024-04-22] MEDS: LORATADINE 10 MG TAB PO SCH (08:31)
[2024-04-22] MEDS: guaiFENesin/DEXTROM SYRUP 100MG/10MG 5ML UDC PO PRN (08:31)
[2024-04-22] MEDS: ZINC SULFATE 220 MG CAPSULE PO SCH (08:32)
[2024-04-22] MEDS: ACYCLOVIR 400 MG TAB PO SCH (08:32)
[2024-04-22] MEDS: TOCOPHERYL, DL-ALPHA 400 UNITS 180 MG CAP PO SCH (08:32)
[2024-04-22] MEDS: PREGABALIN 75 MG CAP PO SCH (08:37)
[2024-04-22] MEDS ORDERED: NON-FORMULARY MEDICATION (Vitamin K2 100 mcg Capsule) PO SCH (09:00)
[2024-04-22] MEDS ORDERED: FLUTICASONE/VILANTEROL 200/25MCG 14 PUFFS/INHALER INH SCH (09:00)
--- NOTE | 2024-04-22 10:55 | Pulmonary Consultation ---
Date of Consultation April 22, 2024 Assessment & Plan (1) Hemoptysis: Patient with described hemoptysis in the setting of possible underlying pneumonia process superimposed on likely metastatic spread to her lung parenchyma. Symptoms have resolved at this point. Would complete course of antibiotics as this seems to be the most likely causative factor. Certainly, if this is secondary to malignant spread with vessel erosion, would anticipate much more significant hemoptysis and without resolve. Certainly, if she does have an acute or abrupt onset of hemoptysis, could treat with nebulized TXA initially. Otherwise, the patient is doing well on current treatment plan. (2) Metastatic cancer: Likely spread to the patient's underlying ovarian cancer. No need for pulmonary intervention at this time. Area of secondary neoplastic involvement: unspecified site Qualified Code(s): C79.9 - Secondary malignant neoplasm of unspecified site (3) Pneumonia: As above. Please complete course of antibiotics as you are. (4) Pleural effusion: Small bilateral effusions RIGHT greater than left. Not amendable to thoracentesis nor is it necessary at this time. (5) Shortness of breath: Multifactorial in the 59-year-old female with decreased activity secondary to her malignancy with associated asthma and pneumonia. Saturating well on room air at this time. Plan Thank you for allowing us to participate in the care of this patient. Please feel free to reach out to us by phone for any changing or worsening symptoms. History of Present Illness Reason for Consultation: Superimposed pneumonia Requesting Physician: Dr. Lowery Attending Physician: Mundo Severino MD History of Present Illness Patient is a 59-year-old female with a significant past medical history of metastatic ovarian cancer and asthma who was admitted in the setting of progressively worsening cough for the last several weeks. The patient and report that her cough is been present since about December. She did increase her daily use of rescue Hailer to twice daily has been doing so scheduled which has seemed to help. She also uses her Advair discus twice daily. She states that she has been doing fine up until few days ago when she has had a progressively worsening productive cough with associated hemoptysis. Initially, the hemoptysis was pretty profound, but has since subsided. She states that since being in the hospital, she has not had any hemoptysis, thankfully. She reports no complaints of chest pain. No palpitations or worsening dyspnea. No fevers or chills. She did undergo CT of the chest which demonstrated findings of likely metastatic disease with possible underlying pneumonia process. She is currently on Rocephin and azithromycin by primary service. Pulmonary medicine consulted for hemoptysis. Allergies Allergy/AdvReac Type Severity Reaction Status Date / Time bee venom protein (honey bee) Allergy Severe ANAPHYLAXIS Verified 01/23/24 09:27 Fish Containing Products Allergy Severe ANAPHYLAXIS Verified 01/23/24 09:27 TO SEAFOOD Iodinated Contrast Media Allergy Severe ANAPHYLAXIS Verified 01/23/24 09:27 monosodium glutamate Allergy Severe Anaphylaxis Verified 01/23/24 09:27 Penicillins Allergy Severe ANAPHYLAXIS Verified 01/23/24 09:27 shellfish derived Allergy Severe ANAPHYLAXIS Verified 01/23/24 09:27 TO SEAFOOD black walnut Allergy Intermediate SWELLING, Verified 01/23/24 09:27 HIVES AND ASTHMA ATTACK cantaloupe Allergy Intermediate Hives Verified 04/21/24 18:49 coconut Allergy Intermediate SWELLING, Verified 01/23/24 09:27 HIVES, ASTHMA ATTACK codeine Allergy Intermediate SWELLING, Verified 01/23/24 09:27 HIVES, ASTHMA ATTACK iodine Allergy Intermediate SWELLING, Verified 01/23/24 09:27 RASH, BLISTERS, BLEEDING tetracycline Allergy Intermediate SWELLING, Verified 01/23/24 09:27 HIVES, ASTHMA ATTACK latex Allergy Unknown SWELLING, Verified 01/23/24 09:27 BLEEDING AT SITE, BLISTERS gabapentin AdvReac Unknown Drowsy Unverified 01/23/24 09:27 Cantaloupe Allergy Intermediate SWELLING, Uncoded 01/23/24 09:27 HIVES, ASTHMA ATTACK [place] Allergy Intermediate SWELLING, Uncoded 01/23/24 09:27 HIVES, MIGRAINES Seafood Allergy Unknown Unknown Uncoded 01/23/24 09:27 Home Medications Medication Instructions Recorded Confirmed Type ondansetron 8 mg disintegrating 8 mg PO TID PRN Nausea #0 tabs 03/03/14 04/21/24 History tablet diphenhydramine HCl 25 mg tablet 25 mg PO Q4H PRN Allergic Reaction 03/10/14 04/21/24 History #0 caps magnesium 250 mg tablet 250 mg PO BID ##0 10/05/15 04/21/24 History cholecalciferol (vitamin D3) 25 5,000 unit PO BID 30 days #0 tabs 11/06/17 04/21/24 History mcg (1,000 unit) tablet docusate sodium 100 mg capsule 100 mg PO TID PRN Constipation 08/02/18 04/21/24 History (Colace) prochlorperazine maleate 10 mg 10 mg PO UD PRN Nausea 08/02/18 04/21/24 History tablet (Compazine) cetirizine 10 mg tablet (Zyrtec) 10 mg PO HS 06/19/19 04/21/24 History hydrocodone 5 mg-acetaminophen 325 1 tab PO DAILY PRN Pain #6 tabs 06/29/20 04/21/24 Rx mg tablet phytonadione (vitamin K1) 1 mg/0.5 mg 07/12/21 01/23/24 History mL injection solution (vitamin K) turmeric 100 mg-tadeo 150 1 cap PO QAM 07/12/21 04/21/24 History mg-olive 50 mg-oreg 150 mg-capryl capsule vitamin B complex 1 cap PO QAM 07/12/21 04/21/24 History vitamin K2 100 mcg capsule 100 mcg PO QAM 07/12/21 04/21/24 History doxorubicin, peg-liposomal 2 mg/mL IV 01/29/23 01/23/24 History intravenous suspension (Doxil) acyclovir 400 mg tablet 400 mg PO BID 07/18/23 04/21/24 History albuterol sulfate 90 mcg/actuation 2 puff inhalation Q4H PRN 07/18/23 04/21/24 Rx aerosol inhaler (Ventolin HFA) Shortness Of Breath Or Wheezing #1 inhaler fluticasone 250 mcg-salmeterol 50 1 inh inhalation BID #60 ea 07/18/23 04/21/24 Rx mcg/dose blistr powdr for inhalation (Advair Diskus) pregabalin 75 mg capsule (Lyrica) 75 mg PO .COMPLEX #90 caps 08/17/23 04/21/24 Rx duloxetine 60 mg capsule,delayed 60 mg PO DAILY #30 caps 11/22/23 04/21/24 Rx release duloxetine 30 mg capsule,delayed 30 mg PO DAILY #30 caps 12/25/23 04/21/24 Rx release albuterol sulfate 2.5 mg/3 mL 2.5 mg inhalation Q4H PRN Wheezing 01/23/24 04/21/24 History (0.083 %) solution for nebulization cannabidiol topical PRN Pain (Scale Score 1-3) 01/23/24 History cyclobenzaprine 5 mg tablet See Rx Instructions .Route 01/23/24 04/21/24 Rx .COMPLEX #90 tabs epinephrine 0.3 mg/0.3 mL 0.3 mg (0.3 mL) IM UD PRN ALLERGY 01/23/24 04/21/24 Rx injection, auto-injector REACTIONS #2 ea estradiol 1 mg/gram (0.1 %) 1 packet transdermal .COMPLEX 01/23/24 04/21/24 History transdermal gel packet loratadine 10 mg disintegrating 10 mg PO DAILY 01/23/24 04/21/24 History tablet (Allergy Relief (loratadine)) lysine 500 mg tablet 1,000 mg PO BID 01/23/24 04/21/24 History naproxen sodium 220 mg tablet 220 mg PO BID PRN Pain (Scale 01/23/24 04/21/24 History (Flanax (naproxen)) Score 1-3) olopatadine 0.7 % eye drops 1 drp ophthalmic (eye) DAILY PRN 01/23/24 01/23/24 History (Pataday Once Daily Relief) Dry Eyes selenium 200 mcg capsule 200 mcg PO DAILY 01/23/24 04/21/24 History vit C 180 mg-D3 10 mcg-zinc 5.5 cap PO 01/23/24 01/23/24 History fw-vlwtlo-iloflbj-tadeo-herb capsule (Immune Support (vit c, d and zinc)) vitamin E (dl, acetate) 180 mg 180 mg PO DAILY 01/23/24 04/21/24 History (400 unit) capsule zinc gluconate 25 mg tablet 50 mg PO DAILY 01/23/24 04/21/24 History Patient History Medical History (Updated 04/21/24 @ 17:37 by Temitope Lowery MD) Migraine without status migrainosus, not intractable History of biliary stent insertion has currently Peripheral neuropathy 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; NO RECENT ISSUES Ureter injury CONGENITAL Depression Sleep apnea NO DEVICE Asthma NO RECENT ISSUES Surgical History History of cataract surgery History of ERCP EGD/EUS/ERCP= 06/12/18= GRADE VIEW 3, MAC 3.0, ETT 7.0 AT [facility] History of ureter repair 30+ YEARS AGO History of total abdominal hysterectomy and bilateral salpingo-oophorectomy History of laparoscopy History of breast biopsy History of tooth extraction History of tonsillectomy History of vascular access device A-PORT (LEFT CHEST) Family History Mother Skin cancer Father Lung cancer Social History Smoking Status: Never smoker Second Hand Exposure: No; Do You Dip or Chew Tobacco: No; Hx Alcohol Use: No Hx Substance Use: No Preferred Language: Belarusian Communication Ability: Effective Visual Impairment: No Limitations Desktop Manager Required: No Beliefs That Will Affect Care: None Current Living Situation: Spouse Feels Safe at Home: Yes Safety Concerns: Feels Safe At This Time Assistive Devices: Cane, Glasses and Walker Review of Systems Review of Systems: A complete 10 point review of systems was reviewed with the patient with pertinent positives and negatives as per history of present illness. All else were negative. Physical Exam Physical Exam: VITAL SIGNS Vital signs and nursing notes were reviewed. GENERAL 59-year-old female appearing her stated age who is in no acute distress. Communicates well with provider and answers questions appropriately. SKIN Without rashes or lesions. NOSE Midline and without cyanosis. MOUTH/OROPHARYNX Without perioral cyanosis. NECK Neck with FROM. LUNGS Chest wall evaluation demonstrates normal chest wall A:P diameter. Auscultation reveals clear breath sounds bilaterally without wheezes, rales, or rhonchi appreciated. CARDIAC RRR with S1/S2. No murmur, rubs, or gallops appreciated. PSYCH A&Ox3 and cooperates fully with examiner. Pt is very pleasant and interacts well with examiner. Results & Data Results & Data Vital Signs (Past 12 Hours) Vital Signs Temp Pulse Pulse Resp BP Pulse Ox O2 Del Method 04/22/24 07:47 90 04/22/24 07:47 Room Air 04/22/24 07:28 36.4 C L 89 18 119/80 91 Room Air 04/22/24 07:09 87 16 94 Room Air 04/22/24 02:45 37 C 93 H 17 129/86 94 Room Air PG Care Time/CCT Total # of Minutes Spent Total Time Spent with Patient: Total time spent is greater than 50% in coordination of care (as documented) at patient's floor/unit and/or counseling patient: Coding Level of Care Code 41319 IN/OBS CONSULT LVL 3,45M Diagnoses Hemoptysis R04.2 Metastatic cancer C79.9 Area of secondary neoplastic involvement: unspecified site Pneumonia J18.9 Pleural effusion J90 Shortness of breath R06.02
--- NOTE | 2024-04-22 12:16 | Hospitalist Progress Note ---
Date of Service April 22, 2024 Assessment & Plan (1) Pneumonia: Plan: Patient presents to the hospital worsening shortness of breath chest x-ray and CT chest showed evidence of infiltrates consistent with pneumonia Blood cultures have been obtained Empirical started on IV ceftriaxone and azithromycin (2) Aneurysm: Plan: An incidental finding of 4.4cm ascending aorta aneurysm Blood pressures under good control Outpatient follow-up vascular surgery (3) Metastatic cancer: Plan: Metastatic ovarian cancer, with mets to the liver Follows up with oncology outpatient (4) Pleural effusion: Plan: Small pleural effusion Not amenable for drainage per pulmonology (5) Chemotherapy-induced peripheral neuropathy: Plan: Gabapentin and duloxetine Plan Continue hospitalization Full code Admission and Anticipated Discharge Date Admission Date: April 21, 2024 Subjective Patient seen and examined, states shortness of breath is a little improved. by the bedside Review of Systems Review of Systems: All systems reviewed are negative, apart from the ones contained in the history. Physical Exam Physical Exam: The patient is awake, alert and oriented 3, well developed and well nourished, normocephalic and atraumatic, lying in bed and in no acute distress. HEENT--PERRL, EOMI, mucous membranes and oropharynx mildly dry Neck--supple. No JVD. No bruits. Thyroid normal, trachea midline, no adenopathy. Heart--normal S1 and S2. No murmurs, rubs or gallops. Lungs--clear bilaterally, no respiratory distress, no accessory muscle use. Abdomen--normal bowel sounds and soft. Extremities--no cyanosis or clubbing. bilateral leg edema. Dermatologic--normal skin turgor, normal color, no abnormal lymph nodes, no rash. Neurologic--cranial nerves II through XII grossly intact. Rheumatologic--normal range of motion. Psychiatric--normal affect. Results & Data Results & Data Vital Signs (Past 12 Hours) Vital Signs Temp Pulse Pulse Resp BP Pulse Ox O2 Del Method 04/22/24 11:23 97.9 F 93 H 18 116/79 92 Room Air 04/22/24 07:47 90 04/22/24 07:47 Room Air 04/22/24 07:28 97.5 F L 89 18 119/80 91 Room Air 04/22/24 07:09 87 16 94 Room Air 04/22/24 02:45 98.6 F 93 H 17 129/86 94 Room Air PG Care Time/CCT Total # of Minutes Spent Total Time Spent with Patient: Total time spent is greater than 50% in coordination of care (as documented) at patient's floor/unit and/or counseling patient: Coding Level of Care Code 68570 SUB INP/OBS CARE 2/35MIN Diagnoses Pneumonia J18.9 Aneurysm I72.9 Metastatic cancer C79.9 Area of secondary neoplastic involvement: unspecified site Pleural effusion J90 Chemotherapy-induced peripheral neuropathy G62.0; T45.1X5A Time Spent (min) 35 (3) Metastatic cancer Area of secondary neoplastic involvement: unspecified site Qualified Code(s): C79.9 - Secondary malignant neoplasm of unspecified site
[2024-04-22] MEDS: cefTRIAXone SODIUM 2,000 MG/50 ML BAG IV SCH (15:18)
[2024-04-22] MEDS: AZITHROMYCIN 500 MG in DEXTROSE 5% 250 ML IV SCH (15:49)
[2024-04-22] MEDS ORDERED: cefTRIAXone SODIUM 1,000 MG/50 ML BAG IV SCH (16:00)
[2024-04-22] MEDS ORDERED: AZITHROMYCIN 250 MG in DEXTROSE 5% 250 ML IV SCH (16:00)
[2024-04-22] MEDS: DULoxetine HCL 30 MG CAP PO SCH (20:46)
--- NOTE | 2024-04-23 05:55 | Electrocardiogram Report ---
Test Reason : Blood Pressure : */* mmHG Vent. Rate : 107 BPM Atrial Rate : 107 BPM P-R Int : 158 ms QRS Dur : 80 ms QT Int : 334 ms P-R-T Axes : -16 5 -8 degrees QTcB Int : 445 ms Sinus tachycardia Low voltage QRS Possible Inferior infarct , age undetermined Incomplete right bundle branch block Abnormal ECG When compared with ECG of 05-Aug-2018 14:01, Borderline criteria for Inferior infarct are now Present T wave inversion now evident in Inferior leads Nonspecific T wave abnormality now evident in Anterior leads Confirmed by Wil Krause ([id number] on 04/23/2024 5:54:40 AM Referred By: Confirmed By: Wil Krause
[2024-04-23 06:32] LABS: Hematocrit (blood only) 29.3 % (37.0-47.0); Immature Granulocytes # (auto) 0.01 K/uL (0.01-0.20); Immature Granulocytes % (auto) 0.2 %; Lymphocytes # (auto) 0.48 K/uL (1.20-3.40); Lymphocytes % (auto) 11.6 %; Mean Corpuscular Hemoglobin 32.8 pg (25.0-34.0); Mean Corpuscular Hgb Conc 34.1 g/dL (32.0-36.0); Mean Corpuscular Volume 96.1 fL (80.0-100.0); Mean Platelet Volume 10.4 fL (9.4-12.4); Monocytes # (auto) 1.12 K/uL (0.11-0.59); Monocytes % (auto) 27.1 %; Neutrophils # (auto) 2.53 K/uL (1.40-6.50); Neutrophils % (auto) 61.1 %; Platelet Count 330 K/uL (130-400); RDW Standard Deviation 71.2 fL (36.4-46.3); Red Blood Count 3.05 M/uL (4.20-5.40); White Blood Count 4.14 K/ul (4.8-10.8)
[2024-04-23 06:42] LABS: Albumin Globulin Ratio 0.9 (0.9-2); Albumin Level 2.9 gm/dl (3.4-5.0); BUN Creatinine Ratio 41.7 (10-20); Bilirubin,Total 0.6 mg/dl (0.2-1.0); Calcium 8.8 mg/dl (8.6-10.3); Creatinine Clr Calc Pharmacy 127.9 ml/min; Est GFR (African American) 124.4 ml/min; Est GFR (Non-African American) 107.4 ml/min; Globulin 3.4 gm/dl (2.5-4.0); Potassium 3.4 mmol/L (3.5-5.1); Total Protein 6.3 gm/dl (6.0-8.3)
--- NOTE | 2024-04-23 10:19 | Pulmonology Progress Note ---
Date of Service April 23, 2024 Assessment & Plan (1) Hemoptysis: Plan: Patient with described hemoptysis in the setting of possible underlying pneumonia process superimposed on likely metastatic spread to her lung parenchyma. Symptoms have resolved at this point. Would complete course of antibiotics as this seems to be the most likely causative factor. Certainly, if this is secondary to malignant spread with vessel erosion, would anticipate much more significant hemoptysis and without resolve. Certainly, if she does have an acute or abrupt onset of hemoptysis, could treat with nebulized TXA initially. Otherwise, the patient is doing well on current treatment plan. (2) Metastatic cancer: Plan: Likely spread to the patient's underlying ovarian cancer. No need for pulmonary intervention at this time. Area of secondary neoplastic involvement: unspecified site Qualified Code(s): C79.9 - Secondary malignant neoplasm of unspecified site (3) Pneumonia: Plan: As above. Please complete course of antibiotics as you are. (4) Pleural effusion: Plan: Small bilateral effusions RIGHT greater than left. Not amendable to thoracentesis nor is it necessary at this time. (5) Shortness of breath: Plan: Multifactorial in the 59-year-old female with decreased activity secondary to her malignancy with associated asthma and pneumonia. Saturating well on room air at this time. (6) Asthma: Plan: Patient carries a prior diagnosis of asthma. She had been well-controlled on Advair twice daily and twice daily albuterol. She states that she is using the nebulizers and they seem to be providing her symptomatic relief at this time. Would recommend that she restarts her Advair at the time of discharge, however if her symptoms do seem to be more responsive to nebulized therapies, this could be arranged in the outpatient setting. Plan Thank you for allowing us to participate in the care of this patient. Please feel free to reach out to us by phone for any changing or worsening symptoms. Pulmonary medicine will sign off at this time. Admission and Anticipated Discharge Date Admission Date: April 21, 2024 Subjective Patient seen and evaluated bedside. She had a good nights rest. She is coughing up some yellowish sputum no hemoptysis noted. She is doing well with her nebulizer treatments. Review of Systems Review of Systems: A complete 10 point review of systems was reviewed with the patient with pertinent positives and negatives as per history of present illness. All else were negative. Physical Exam Physical Exam: VITAL SIGNS Vital signs and nursing notes were reviewed. GENERAL 59-year-old female appearing her stated age who is in no acute distress. Communicates well with provider and answers questions appropriately. SKIN Without rashes or lesions. NOSE Midline and without cyanosis. MOUTH/OROPHARYNX Without perioral cyanosis. NECK Neck with FROM. LUNGS Chest wall evaluation demonstrates normal chest wall A:P diameter. Auscultation reveals clear breath sounds bilaterally without wheezes, rales, or rhonchi appreciated. CARDIAC RRR with S1/S2. No murmur, rubs, or gallops appreciated. PSYCH A&Ox3 and cooperates fully with examiner. Pt is very pleasant and interacts well with examiner. Results & Data Results & Data Vital Signs (Past 12 Hours) Vital Signs Temp Pulse Pulse Resp BP Pulse Ox O2 Del Method 04/23/24 07:46 102 H 16 95 Room Air 04/23/24 07:31 94 H 04/23/24 07:25 36.4 C L 92 H 19 123/83 97 Room Air 04/23/24 02:38 36.3 C L 95 H 20 110/72 94 Room Air 04/22/24 22:28 36.4 C L 95 H 16 112/71 94 Room Air PG Care Time/CCT Total # of Minutes Spent Total Time Spent with Patient: Total time spent is greater than 50% in coordination of care (as documented) at patient's floor/unit and/or counseling patient: Coding Level of Care Code 12685 SUB INP/OBS CARE 125MIN Diagnoses Hemoptysis R04.2 Metastatic cancer C79.9 Area of secondary neoplastic involvement: unspecified site Pneumonia J18.9 Pleural effusion J90 Shortness of breath R06.02 Asthma J45.909
--- NOTE | 2024-04-23 13:06 | Hospitalist Progress Note ---
Date of Service April 23, 2024 Assessment & Plan (1) Pneumonia: Plan: Patient presents to the hospital worsening shortness of breath chest x-ray and CT chest showed evidence of infiltrates consistent with pneumonia Blood cultures have been obtained Empirical started on IV ceftriaxone and azithromycin Cultures negative so far (2) Aneurysm: Plan: An incidental finding of 4.4cm ascending aorta aneurysm Blood pressures under good control Outpatient follow-up vascular surgery (3) Metastatic cancer: Plan: Metastatic ovarian cancer, with mets to the liver Follows up with oncology outpatient (4) Pleural effusion: Plan: Small pleural effusion Not amenable for drainage per pulmonology (5) Chemotherapy-induced peripheral neuropathy: Plan: Gabapentin and duloxetine Plan Continue hospitalization Full code Admission and Anticipated Discharge Date Admission Date: April 21, 2024 Subjective patient seen and examined, complained of heartburn, still coughing up some sputum Review of Systems Review of Systems: All systems reviewed are negative, apart from the ones contained in the history. Physical Exam Physical Exam: The patient is awake, alert and oriented 3, well developed and well nourished, normocephalic and atraumatic, lying in bed and in no acute distress. HEENT--PERRL, EOMI, mucous membranes and oropharynx mildly dry Neck--supple. No JVD. No bruits. Thyroid normal, trachea midline, no adenopathy. Heart--normal S1 and S2. No murmurs, rubs or gallops. Lungs--clear bilaterally, no respiratory distress, no accessory muscle use. Abdomen--normal bowel sounds and soft. Extremities--no cyanosis or clubbing. bilateral leg edema. Dermatologic--normal skin turgor, normal color, no abnormal lymph nodes, no rash. Neurologic--cranial nerves II through XII grossly intact. Rheumatologic--normal range of motion. Psychiatric--normal affect. Results & Data Results & Data Vital Signs (Past 12 Hours) Vital Signs Temp Pulse Pulse Resp BP Pulse Ox O2 Del Method 04/23/24 11:26 97.5 F L 97 H 19 108/72 96 Room Air 04/23/24 09:00 Room Air 04/23/24 07:46 102 H 16 95 Room Air 04/23/24 07:31 94 H 04/23/24 07:25 97.5 F L 92 H 19 123/83 97 Room Air 04/23/24 02:38 97.3 F L 95 H 20 110/72 94 Room Air PG Care Time/CCT Total # of Minutes Spent Total Time Spent with Patient: Total time spent is greater than 50% in coordination of care (as documented) at patient's floor/unit and/or counseling patient: Coding Level of Care Code 74735 SUB INP/OBS CARE 2/35MIN Diagnoses Pneumonia J18.9 Aneurysm I72.9 Metastatic cancer C79.9 Area of secondary neoplastic involvement: unspecified site Pleural effusion J90 Chemotherapy-induced peripheral neuropathy G62.0; T45.1X5A Time Spent (min) 35 (3) Metastatic cancer Area of secondary neoplastic involvement: unspecified site Qualified Code(s): C79.9 - Secondary malignant neoplasm of unspecified site
[2024-04-23] MEDS: CYCLOBENZAPRINE HCL 5 MG TAB PO PRN (15:13)
[2024-04-23] MEDS: PANTOprazole 40 MG TAB PO SCH (20:22)
[2024-04-24 07:26] LABS: Basophils # (auto) 0.01 K/uL (0.00-0.20); Basophils % (auto) 0.3 %; Eosinophils # (auto) 0.04 K/uL (0.00-0.50); Eosinophils % (auto) 1.2 %; Hematocrit (blood only) 31.4 % (37.0-47.0); Hemoglobin 10.6 g/dl (12.0-16.0); Immature Granulocytes # (auto) 0.01 K/uL (0.01-0.20); Immature Granulocytes % (auto) 0.3 %; Lymphocytes # (auto) 0.47 K/uL (1.20-3.40); Lymphocytes % (auto) 14.2 %; Mean Corpuscular Hemoglobin 32.9 pg (25.0-34.0); Mean Corpuscular Hgb Conc 33.8 g/dL (32.0-36.0); Mean Corpuscular Volume 97.5 fL (80.0-100.0); Mean Platelet Volume 9.8 fL (9.4-12.4); Monocytes # (auto) 1.16 K/uL (0.11-0.59); Monocytes % (auto) 35.2 %; Neutrophils # (auto) 1.61 K/uL (1.40-6.50); Neutrophils % (auto) 48.8 %; Platelet Count 304 K/uL (130-400); RDW Coefficient of Variation 19.9 % (11.5-14.5); RDW Standard Deviation 71.5 fL (36.4-46.3); Red Blood Count 3.22 M/uL (4.20-5.40)
[2024-04-24 08:05] LABS: BUN Creatinine Ratio 44.2 (10-20); Calcium 8.3 mg/dl (8.6-10.3); Creatinine Clr Calc Pharmacy 142.6 ml/min; Est GFR (Non-African American) 111.3 ml/min; Potassium 3.7 mmol/L (3.5-5.1)
[2024-04-24] MEDS: HEPARIN 100 UNIT/ML 5ML FLUSH FLUSH PRN (08:24)
[2024-04-24] MEDS: DOCUSATE SODIUM 100 MG CAP PO PRN (08:49)
--- NOTE | 2024-04-24 11:59 | Ultrasound Report ---
Limited abdominal ultrasound INDICATION: Ascites; possible paracentesis FINDINGS: Real-time ultrasound imaging in all 4 abdominal quadrants demonstrates a scant amount of as cites, most notably at the dome of the liver. No paracentesis was performed. IMPRESSION: Scant ascites. No paracentesis performed. Performed, dictated, and signed by Elder Owens PA-C; to be co-signed by Dr. Rhys Pope. Electronically signed by: Rhys Pope M.D. 04/24/2024 12:06 PM
--- NOTE | 2024-04-24 12:30 | Hospitalist Progress Note ---
Date of Service April 24, 2024 Assessment & Plan (1) Pneumonia: Plan: Patient presents to the hospital worsening shortness of breath chest x-ray and CT chest showed evidence of infiltrates consistent with pneumonia Blood cultures have been obtained Empirical started on IV ceftriaxone and azithromycin Cultures negative so far Still complains of some shortness of breath especially trying to lie down flat No evidence of congestive changes on chest x-ray Will obtain BNP and 2D echo (2) Aneurysm: Plan: An incidental finding of 4.4cm ascending aorta aneurysm Blood pressures under good control Outpatient follow-up vascular surgery (3) Metastatic cancer: Plan: Metastatic ovarian cancer, with mets to the liver Follows up with oncology outpatient (4) Pleural effusion: Plan: Small pleural effusion Not amenable for drainage per pulmonology (5) Chemotherapy-induced peripheral neuropathy: Plan: Gabapentin and duloxetine Plan Continue hospitalization Full code Admission and Anticipated Discharge Date Admission Date: April 21, 2024 Subjective patient seen and examined, complained of heartburn, still coughing up some sputum, And also some shortness of breath open Down flat Review of Systems Review of Systems: All systems reviewed are negative, apart from the ones contained in the history. Physical Exam Physical Exam: The patient is awake, alert and oriented 3, well developed and well nourished, normocephalic and atraumatic, lying in bed and in no acute distress. HEENT--PERRL, EOMI, mucous membranes and oropharynx mildly dry Neck--supple. No JVD. No bruits. Thyroid normal, trachea midline, no adenopathy. Heart--normal S1 and S2. No murmurs, rubs or gallops. Lungs--clear bilaterally, no respiratory distress, no accessory muscle use. Abdomen--normal bowel sounds and soft. Extremities--no cyanosis or clubbing. bilateral leg edema. Dermatologic--normal skin turgor, normal color, no abnormal lymph nodes, no rash. Neurologic--cranial nerves II through XII grossly intact. Rheumatologic--normal range of motion. Psychiatric--normal affect. Results & Data Results & Data Vital Signs (Past 12 Hours) Vital Signs Temp Pulse Pulse Resp BP Pulse Ox O2 Del Method 04/24/24 11:18 97.7 F 85 18 106/73 92 Room Air 04/24/24 09:00 Room Air 04/24/24 07:53 89 04/24/24 07:23 86 17 96 Room Air 04/24/24 07:17 97.7 F 84 18 106/72 96 Room Air 04/24/24 03:05 98.1 F 91 H 18 108/71 94 Room Air PG Care Time/CCT Total # of Minutes Spent Total Time Spent with Patient: Total time spent is greater than 50% in coordination of care (as documented) at patient's floor/unit and/or counseling patient: Coding Level of Care Code 49006 SUB INP/OBS CARE 2/35MIN Diagnoses Pneumonia J18.9 Aneurysm I72.9 Metastatic cancer C79.9 Area of secondary neoplastic involvement: unspecified site Pleural effusion J90 Chemotherapy-induced peripheral neuropathy G62.0; T45.1X5A Time Spent (min) 35 (3) Metastatic cancer Area of secondary neoplastic involvement: unspecified site Qualified Code(s): C79.9 - Secondary malignant neoplasm of unspecified site
[2024-04-24] MEDS: bisacodyL 10 MG SUPP PR STA (12:38)
[2024-04-24] MEDS: FUROSEMIDE 40 MG/4 ML VIAL IV ONE (12:38)
[2024-04-25 06:46] LABS: Hematocrit (blood only) 28.3 % (37.0-47.0); Hemoglobin 9.3 g/dl (12.0-16.0); Mean Corpuscular Hemoglobin 32.7 pg (25.0-34.0); Mean Corpuscular Hgb Conc 32.9 g/dL (32.0-36.0); Mean Corpuscular Volume 99.6 fL (80.0-100.0); Mean Platelet Volume 9.8 fL (9.4-12.4); Platelet Count 256 K/uL (130-400); RDW Coefficient of Variation 19.6 % (11.5-14.5); RDW Standard Deviation 72.2 fL (36.4-46.3); Red Blood Count 2.84 M/uL (4.20-5.40)
[2024-04-25 07:10] LABS: BUN Creatinine Ratio 46.7 (10-20); Calcium 6.4 mg/dl (8.6-10.3); Creatinine Clr Calc Pharmacy 204.8 ml/min; Est GFR (African American) 145.3 ml/min; Est GFR (Non-African American) 125.3 ml/min; Potassium 2.6 mmol/L (3.5-5.1)
[2024-04-25] MEDS: POTASSIUM CHLORIDE CRTAB 20 MEQ TABCR PO STA ×2 (08:02→17:44)
--- NOTE | 2024-04-25 11:07 | Hospitalist Progress Note ---
Date of Service April 25, 2024 Assessment & Plan (1) Pneumonia: Plan: Patient presents to the hospital worsening shortness of breath chest x-ray and CT chest showed evidence of infiltrates consistent with pneumonia Blood cultures have been obtained Empirical started on IV ceftriaxone and azithromycin Cultures negative so far Still complains of some dry cough, but SOB is improved No evidence of congestive changes on chest x-ray, BNP is wnl. ECHO is pending. Last ECHO showed preserved EF 60-65% (2) Aneurysm: Plan: An incidental finding of 4.4cm ascending aorta aneurysm Blood pressures under good control Outpatient follow-up vascular surgery (3) Metastatic cancer: Plan: Metastatic ovarian cancer, with mets to the liver Follows up with oncology outpatient (4) Pleural effusion: Plan: Small pleural effusion Not amenable for drainage per pulmonology (5) Chemotherapy-induced peripheral neuropathy: Plan: Gabapentin and duloxetine (6) Hypokalemia: Plan: replaced Plan Continue hospitalization Full code Admission and Anticipated Discharge Date Admission Date: April 21, 2024 Subjective patient seen and examined, States shortness of breath is much improved, although still has some dry cough Review of Systems Review of Systems: All systems reviewed are negative, apart from the ones contained in the history. Physical Exam Physical Exam: The patient is awake, alert and oriented 3, well developed and well nourished, normocephalic and atraumatic, lying in bed and in no acute distress. HEENT--PERRL, EOMI, mucous membranes and oropharynx mildly dry Neck--supple. No JVD. No bruits. Thyroid normal, trachea midline, no adenopathy. Heart--normal S1 and S2. No murmurs, rubs or gallops. Lungs--clear bilaterally, no respiratory distress, no accessory muscle use. Abdomen--normal bowel sounds and soft. Extremities--no cyanosis or clubbing. bilateral leg edema. Dermatologic--normal skin turgor, normal color, no abnormal lymph nodes, no rash. Neurologic--cranial nerves II through XII grossly intact. Rheumatologic--normal range of motion. Psychiatric--normal affect. Results & Data Results & Data Vital Signs (Past 12 Hours) Vital Signs Temp Pulse Pulse Resp BP BP Pulse Ox 04/25/24 10:51 97.3 F L 100 H 16 110/74 92 04/25/24 07:46 98.1 F 93 H 16 101/69 90 04/25/24 07:14 15 98 04/25/24 03:17 98.1 F 98 H 18 102/70 93 04/24/24 23:31 98.2 F 96 H 17 106/76 94 04/24/24 23:22 110 H O2 Del Method 04/25/24 10:51 Room Air 04/25/24 07:46 Room Air 04/25/24 07:14 Room Air 04/25/24 03:17 Room Air 04/24/24 23:31 Room Air 04/24/24 23:22 PG Care Time/CCT Total # of Minutes Spent Total Time Spent with Patient: Total time spent is greater than 50% in coordination of care (as documented) at patient's floor/unit and/or counseling patient: Coding Level of Care Code 36367 SUB INP/OBS CARE 2/35MIN Diagnoses Pneumonia J18.9 Aneurysm I72.9 Metastatic cancer C79.9 Area of secondary neoplastic involvement: unspecified site Pleural effusion J90 Chemotherapy-induced peripheral neuropathy G62.0; T45.1X5A Hypokalemia E87.6 Time Spent (min) 35 (3) Metastatic cancer Area of secondary neoplastic involvement: unspecified site Qualified Code(s): C79.9 - Secondary malignant neoplasm of unspecified site
--- NOTE | 2024-04-25 15:34 | XCELERA ---
[id number]___[id number]
[2024-04-25] MEDS: ACETAMINOPHEN 325 MG TAB PO PRN (21:00)
[2024-04-25] MEDS: CALCIUM 600MG + VIT D 400 IU TAB PO SCH (21:02)
[2024-04-26 04:22] VITALS: O2SAT 93
[2024-04-26 06:43] LABS: BUN Creatinine Ratio 39.5 (10-20); Calcium 8.1 mg/dl (8.6-10.3); Creatinine Clr Calc Pharmacy 143.1 ml/min; Est GFR (Non-African American) 111.3 ml/min; Potassium 4.1 mmol/L (3.5-5.1)
[2024-04-26] MEDS: CYCLOBENZAPRINE HCL 10 MG TAB PO PRN (09:24)
--- NOTE | 2024-04-26 10:45 | Discharge Summary ---
Date of Service April 26, 2024 Admission HPI Per Admitting Provider 59 year old female with history of metastatic ovarian cancer and asthma who presented here due to increased SOB and cough since 2 weeks ago. She refers cough has been increasing i frequency and intensity with no resolutions. She had an episodes of hemoptysis since yesterday, that she describe small clots. Last episode was this morning. She refers some bri looking sputum as well on Sunday which she attributed to an epistaxis event she got a couple of days before. she refers chest pain that is worse when coughing. She got an CXR done on 04/18 which showed multifocal airspace consolidation and was started on Levaquin. she refers having increased nausea and vomiting due to the cough. She refers having throat pain since 3 weeks ago as well. She has being eating less due to the nausea. she has history of metastatic ovarian cancer diagnosed on 2007, she has been treated with different rounds of chemotherapy. Last note of [facility]/Onco. Ct on 03/19 revealed metastatic hypotense hepatic lesions, as well as loculated regional fluid in the left upper quadrant that represented metastatic disease. Capboplatin was recently discontinue. current chemo regimen is Doxil and Avastatin. Last chemo was on this Sunday. ED course: Labs remarkable for leukopenia 2.8, mild anemia 11.9. Patient was given azithromycin and Rocephin Benadryl and IV steroids. Chest x-ray with infiltrates in the lower lobe and small pleural effusions. Ct chest without IV contrast showed which showed questionable pneumonia and metastatic disease with pleural effusions. Nebulized budesonide. Admission Exam (Per Admitting) Constitutional The patient is awake, alert and oriented 3, well developed and well nourished, normocephalic and atraumatic, lying in bed and in no acute distress. HEENT--PERRL, EOMI, mucous membranes and oropharynx mildly dry Neck--supple. No JVD. No bruits. Thyroid normal, trachea midline, no adenopathy. Heart--normal S1 and S2. No murmurs, rubs or gallops. Lungs--clear bilaterally, no respiratory distress, no accessory muscle use. Abdomen--normal bowel sounds and soft. Extremities--no cyanosis or clubbing. No edema. Dermatologic--normal skin turgor, normal color, no abnormal lymph nodes, no rash. Neurologic--cranial nerves II through XII grossly intact. Rheumatologic--normal range of motion. Psychiatric--normal affect. Discharge Data Consultations 04/21/24 16:07 ED Decision to Admit Stat 04/21/24 18:40 Consult Pulmonology Stat Hospital Course (1) Pneumonia: Patient presents to the hospital worsening shortness of breath chest x-ray and CT chest showed evidence of infiltrates consistent with pneumonia Blood cultures have been obtained Empirical started on IV ceftriaxone and azithromycin Cultures negative so far Still complains of some dry cough, but SOB is improved No evidence of congestive changes on chest x-ray, BNP is wnl.ECHO showed preserved EF 60-65% Discharge home on PO Azithromycin 500mg daily for 5 days (2) Aneurysm: An incidental finding of 4.4cm ascending aorta aneurysm Blood pressures under good control Outpatient follow-up vascular surgery (3) Metastatic cancer: Metastatic ovarian cancer, with mets to the liver Follows up with oncology outpatient (4) Pleural effusion: Small pleural effusion Not amenable for drainage per pulmonology (5) Chemotherapy-induced peripheral neuropathy: Gabapentin and duloxetine (6) Hypokalemia: replaced Plan Continue hospitalization Full code Coding Level of Care Code 04802 INP/OBS DISCH >30 MIN Diagnoses Pneumonia J18.9 Aneurysm I72.9 Metastatic cancer C79.9 Area of secondary neoplastic involvement: unspecified site Pleural effusion J90 Chemotherapy-induced peripheral neuropathy G62.0; T45.1X5A Hypokalemia E87.6 Time Spent (min) 35
[2024-04-26 10:54] VITALS: BP 110/77; RESP 17; TEMP 98.1
[2024-04-26 12:40] VITALS: PULSE 93
== END 2024-04-26 14:27 | disposition home or self-care (01) | DRG 194 ==
LOC: ED 11:58 → 4W 17:12 → SUATTDRO 17:12 → 4W 04-22 00:01

== ENCOUNTER 2024-05-30 13:37 | Inpatient (IN) ==
--- NOTE | 2024-05-30 16:16 | Emergency Department Note ---
Impression & Plan Bilateral leg edema, Elevated lactic acid level, Transaminitis ED Provider Note HISTORY OF PRESENT ILLNESS: Patient is a 59-year-old female presenting with bilateral lower extremity edema and vomiting. Patient reports she has ovarian cancer history. She is currently on her eighth round of chemo. Reports that about a month ago she was diagnosed with pneumonia and she still had a cough ever since. She reports that in the last week to week and a half she has been coughing so hard that she vomits. She is unable to keep down any of her oral medications. She denies any abdominal pain. She has had significant abdominal distention and had 7 pounds of fluid drained from her abdomen this morning. She was seen by her cancer doctor and referred to the emergency department for admission, given that she has had progressively worsening swelling of her bilateral lower extremities over the last 3 to 4 days. She states that she had previously tried Lasix, but had been vomiting and unable to keep it down. Denies any fevers. Denies any dysuria or hematuria. She denies any chest pain or significant shortness of breath. ROS: as above PHYSICAL EXAM: Constitutional: Patient appears in no acute distress. HENT: Head: Normocephalic and atraumatic. Eyes: EOMI, PERRL Mouth/Throat: Mucous membranes moist. Neck: Trachea midline. Neck supple. Cardiovascular: RRR, No murmurs, rubs or gallops. Intact distal pulses. Pulmonary/Chest: No respiratory distress. Breath sounds clear and equal bilaterally. No wheezes or rales. Abdominal: Abdomen soft, no tenderness, rebound or guarding. Musculoskeletal: No tenderness or deformity noted. +3 pitting edema of bilateral lower extremities extending to the knees. Skin: Warm and dry. No rash, erythema, pallor or cyanosis Psychiatric: Appropriate mood and affect for situation. Neurological: Alert and keenly responsive. CN II-XII grossly intact, moving all extremities equally and fully. MDM: - Vitals signs showed tachycardia - History obtained via patient. History as above. - Chronic conditions affecting care: Metastatic ovarian cancer - Differential diagnoses include, but are not limited to: DVT; CHF; lymphedema; pneumonia - Order placed for continuous cardiac monitoring. At this time, monitor showed rate of 97 bpm with normal sinus rhythm, per my interpretation. - External medical records reviewed. Paracentesis ultrasound read was reviewed from today. Patient had 3.5 L of ascites removed with 1 L sent to the lab. - EKG interpreted by myself showed normal sinus rhythm. Rate 100 bpm. QT 346. No acute ischemic changes. - Laboratory workup interpreted by myself showed slight leukopenia (WBC 4.60); slight hypokalemia (K 3.4); elevated lactate (4.10); normal troponin; transaminitis (AST 154; ALT 62); normal procalcitonin - CXR negative for pneumonia, per my interpretation. Noted to have a right- sided pleural effusion, per my interpretation. Cardiology notes and pulmonary vascular congestion which has improved since 05/27/2024. - Viral respiratory panel negative - Patient given 1L NS and 25g IV albumin. - Discussion was had with lead case manager about patient's case and need for admission - Hospitalist, Dr. Ledesma, consulted for admission - [facility] ASSESSMENT AND PLAN: Diagnosis: Bilateral lower extremity edema; elevated lactic acid; transaminitis Plan: Admit Past Med/Surg History Problem List (Updated 05/30/24 @ 18:51 by Matilde Baez MD) Transaminitis (Acute) Elevated lactic acid level (Acute) Bilateral leg edema (Acute) Hypokalemia Aneurysm Pneumonia Metastatic cancer (Acute) Pleural effusion (Acute) Shortness of breath (Acute) Hemoptysis (Acute) Pleural effusion, left Right peroneal nerve palsy Pulmonary nodules/lesions, multiple Cognitive dysfunction Chemotherapy-induced peripheral neuropathy Idiopathic polyneuropathy Ovarian cancer (Acute) Post herpetic neuralgia (Acute) Asthma (Acute) Common bile duct (CBD) obstruction Medical History (Updated 05/30/24 @ 18:51 by Matilde Baez MD) Migraine without status migrainosus, not intractable History of biliary stent insertion has currently Peripheral neuropathy 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; NO RECENT ISSUES Ureter injury CONGENITAL Depression Sleep apnea NO DEVICE Asthma NO RECENT ISSUES Surgical History History of cataract surgery History of ERCP EGD/EUS/ERCP= 06/12/18= GRADE VIEW 3, MAC 3.0, ETT 7.0 AT [facility] History of ureter repair 30+ YEARS AGO History of total abdominal hysterectomy and bilateral salpingo-oophorectomy History of laparoscopy History of breast biopsy History of tooth extraction History of tonsillectomy History of vascular access device A-PORT (LEFT CHEST) Family History Mother Skin cancer Father Lung cancer Social History Smoking Status: Never smoker Second Hand Exposure: No; Do You Dip or Chew Tobacco: No; Hx Alcohol Use: No Hx Substance Use: No Preferred Language: Yi Communication Ability: Effective Visual Impairment: No 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 Beliefs That Will Affect Care: None Current Living Situation: Spouse Feels Safe at Home: Yes Assistive Devices: Scooter/Electric Scooter and Walker Allergies Allergies Allergy/AdvReac Type Severity Reaction Status Date / Time bee venom protein (honey bee) Allergy Severe ANAPHYLAXIS Verified 05/14/24 13:42 Fish Containing Products Allergy Severe ANAPHYLAXIS Verified 05/14/24 13:42 TO SEAFOOD Iodinated Contrast Media Allergy Severe ANAPHYLAXIS Verified 05/14/24 13:42 monosodium glutamate Allergy Severe Anaphylaxis Verified 05/14/24 13:42 Penicillins Allergy Severe ANAPHYLAXIS Verified 05/14/24 13:42 shellfish derived Allergy Severe ANAPHYLAXIS Verified 05/14/24 13:42 TO SEAFOOD black walnut Allergy Intermediate SWELLING, Verified 05/14/24 13:42 HIVES AND ASTHMA ATTACK cantaloupe Allergy Intermediate Hives Verified 05/14/24 13:42 coconut Allergy Intermediate SWELLING, Verified 05/14/24 13:42 HIVES, ASTHMA ATTACK codeine Allergy Intermediate SWELLING, Verified 05/14/24 13:42 HIVES, ASTHMA ATTACK iodine Allergy Intermediate SWELLING, Verified 05/14/24 13:42 RASH, BLISTERS, BLEEDING rye grass Allergy Intermediate Swelling, Verified 05/14/24 13:42 hives, migraines tetracycline Allergy Intermediate SWELLING, Verified 05/14/24 13:42 HIVES, ASTHMA ATTACK latex Allergy Unknown SWELLING, Verified 05/14/24 13:42 BLEEDING AT SITE, BLISTERS gabapentin AdvReac Unknown Drowsy Unverified 05/14/24 13:42 Home Meds Home Medications Medication Instructions Recorded Confirmed ondansetron 8 mg disintegrating 8 mg PO TID PRN Nausea #0 tabs 03/03/14 05/30/24 tablet diphenhydramine HCl 25 mg tablet 25 mg PO Q4H PRN Allergic Reaction 03/10/14 05/30/24 #0 caps magnesium 250 mg tablet 250 mg PO BID ##0 /05/1205/14/24 cholecalciferol (vitamin D3) 25 5,000 unit PO BID 30 days #0 tabs 11/06/17 05/30/24 mcg (1,000 unit) tablet docusate sodium 100 mg capsule 100 mg PO TID PRN Constipation 08/02/18 05/30/24 (Colace) prochlorperazine maleate 10 mg 10 mg PO UD PRN Nausea 08/02/18 05/14/24 tablet (Compazine) cetirizine 10 mg tablet (Zyrtec) 10 mg PO HS 06/19/19 05/30/24 phytonadione (vitamin K1) 1 mg/0.5 1 mg UD 07/12/21 05/14/24 mL injection solution (vitamin K) turmeric 100 mg-tadeo 150 1 cap PO QAM 07/12/21 05/14/24 mg-olive 50 mg-oreg 150 mg-capryl capsule vitamin B complex 1 cap PO QAM 07/12/21 05/14/24 vitamin K2 100 mcg capsule 100 mcg PO QAM 07/12/21 05/14/24 doxorubicin, peg-liposomal 2 mg/mL 2 mg IV DIRECTED 01/29/23 05/30/24 intravenous suspension (Doxil) cannabidiol 1 applic topical DIRECTED PRN 01/23/24 05/30/24 Pain (Scale Score 1-3) loratadine 10 mg disintegrating 10 mg PO UD 01/23/24 05/30/24 tablet (Allergy Relief (loratadine)) lysine 500 mg tablet 1,000 mg PO BID 01/23/24 05/14/24 naproxen sodium 220 mg tablet 220 mg PO BID PRN Pain (Scale 01/23/24 05/14/24 (Flanax (naproxen)) Score 1-3) olopatadine 0.7 % eye drops 1 drp ophthalmic (eye) DAILY PRN 01/23/24 05/14/24 (Pataday Once Daily Relief) Dry Eyes selenium 200 mcg capsule 200 mcg PO DAILY 01/23/24 05/14/24 vit C 180 mg-D3 10 mcg-zinc 5.5 1 cap PO DIRECTED 01/23/24 05/14/24 [id number]-tadeo-herb capsule (Immune Support (vit c, d and zinc)) vitamin E (dl, acetate) 180 mg 180 mg PO DAILY 01/23/24 05/14/24 (400 unit) capsule zinc gluconate 25 mg tablet 50 mg PO DAILY 01/23/24 05/14/24 pregabalin 75 mg capsule (Lyrica) 75 mg PO UD 05/13/24 05/14/24 acyclovir 400 mg tablet 400 mg PO BID 05/30/24 05/30/24 cyclobenzaprine 5 mg tablet 5 mg PO TID PRN Muscle Spasm 05/30/24 05/30/24 duloxetine 30 mg capsule,delayed 30 mg PO QAM 05/30/24 05/30/24 release duloxetine 60 mg capsule,delayed 60 mg PO HS 05/30/24 05/30/24 release estradiol 0.01% (0.1 mg/gram) 1 g vaginal UD 05/30/24 05/30/24 vaginal cream Previous Rx's Medication Instructions Recorded hydrocodone 5 mg-acetaminophen 325 1 tab PO DAILY PRN Pain #6 tabs 06/29/20 mg tablet albuterol sulfate 90 mcg/actuation 2 puff inhalation Q4H PRN 07/18/23 aerosol inhaler (Ventolin HFA) Shortness Of Breath Or Wheezing #1 inhaler fluticasone 250 mcg-salmeterol 50 1 inh inhalation BID #60 ea 07/18/23 mcg/dose blistr powdr for inhalation (Advair Diskus) epinephrine 0.3 mg/0.3 mL 0.3 mg (0.3 mL) IM UD PRN ALLERGY 01/23/24 injection, auto-injector REACTIONS #2 ea albuterol sulfate 2.5 mg/3 mL 2.5 mg (3 mL) inhalation Q4H PRN 05/05/24 (0.083 %) solution for nebulization Wheezing #180 mL Results & Data (ED) Vital Signs Vital Signs - 24 hr 05/30/24 14:01 05/30/24 16:12 05/30/24 16:30 Temperature 36.4 C L Temperature Source Skin Pulse Rate 99 H 93 H 92 H Pulse Rate from SpO2 Sensor 93 H Pulse Rhythm Regular Pulse Strength Normal Respiratory Rate 20 23 Respiratory Effort / Characteristics Non-Labored Spontaneous Respiratory Depth Normal Respiratory Pattern Regular Blood Pressure 128/93 134/86 Blood Pressure Mean 104 105 Pulse Oximetry 96 97 Oxygen Delivery Method Room Air Sepsis Recent Fever Within 48 Hours No Sepsis New/Unexplained Change in Mental Status N/A Sepsis Action Taken by Nursing No Action Required 05/30/24 17:00 05/30/24 17:30 Temperature Temperature Source Pulse Rate 100 H 97 H Pulse Rate from SpO2 Sensor 101 H 97 H Pulse Rhythm Pulse Strength Respiratory Rate 26 H 20 Respiratory Effort / Characteristics Respiratory Depth Respiratory Pattern Blood Pressure 118/78 119/79 Blood Pressure Mean 91 85 Pulse Oximetry 96 98 Oxygen Delivery Method Sepsis Recent Fever Within 48 Hours Sepsis New/Unexplained Change in Mental Status Sepsis Action Taken by Nursing Laboratory Data 05/30/24 16:00 05/30/24 16:00 Lab Results 05/30/24 05/30/24 05/30/24 Range/Units 16:00 16:38 16:40 WBC 4.60 L (4.8-10.8) K/ul RBC 3.83 L (4.20-5.40) M/uL Hgb 12.7 (12.0-16.0) g/dl Hct 35.7 L (37.0-47.0) % MCV 93.2 (80.0-100.0) fL MCH 33.2 (25.0-34.0) pg MCHC 35.6 (32.0-36.0) g/dL RDW Std Deviation 67.7 H (36.4-46.3) fL RDW Coeff of Ebenezer 19.9 H (11.5-14.5) % Plt Count 353 (130-400) K/uL MPV 9.8 (9.4-12.4) fL Immature Gran % (Auto) 0.4 % Neut % (Auto) 53.7 % Lymph % (Auto) 9.3 % Cobb % (Auto) 34.8 % Eos % (Auto) 0.9 % Baso % (Auto) 0.9 % Neut # (Auto) 2.47 (1.40-6.50) K/uL Lymph # (Auto) 0.43 L (1.20-3.40) K/uL Cobb # (Auto) 1.60 H (0.11-0.59) K/uL Eos # (Auto) 0.04 (0.00-0.50) K/uL Baso # (Auto) 0.04 (0.00-0.20) K/uL Immature Gran # (Auto) 0.02 (0.01-0.20) K/uL Sodium 134 L (136-145) mmol/L Potassium 3.4 L (3.5-5.1) mmol/L Chloride 95 L (98-107) mmol/L Carbon Dioxide 29 (21-32) mmol/L Anion Gap 10 (3-11) BUN 12 (6-23) mg/dl Creatinine 0.60 (0.6-1.2) mg/dl Est Cr Clr Drug Dosing Not Reportable eGFR 103.33 BUN/Creatinine Ratio 20.0 (10-20) Glucose 106 H (70-99(Fasting)) mg/dl Lactate 4.1 H* (0.4-2.0) mmol/L Calcium 8.1 L (8.6-10.3) mg/dl Total Bilirubin 2.0 H (0.2-1.0) mg/dl AST 154 H (13-39) U/L ALT 62 H (7-52) U/L Alkaline Phosphatase 373 H (34-104) U/L Troponin I High Sens 8.1 (0-14) pg/ml Total Protein 5.5 L (6.0-8.3) gm/dl Albumin 2.6 L (3.4-5.0) gm/dl Globulin 2.9 (2.5-4.0) gm/dl Albumin/Globulin Ratio 0.9 (0.9-2) Lipase 12 (11-82) U/L Procalcitonin 0.47 (0-0.5) ng/ml Adenovirus (PCR) Not Detected (NotDetected) B. pertussis DNA (PCR) Not Detected (NotDetected) B.parapertussis DNA PCR Not Detected (NotDetected) C. pneumoniae DNA (PCR) Not Detected (NotDetected) Coronavirus OC43 (PCR) Not Detected (NotDetected) Coronavirus HKU1 (PCR) Not Detected (NotDetected) Coronavirus 229E (PCR) Not Detected (NotDetected) SARS-CoV-2 (PCR) Not Detected (NotDetected) Coronavirus NL63 (PCR) Not Detected (NotDetected) Human Metapneumovir PCR Not Detected (NotDetected) Influenza Type A (PCR) Not Detected (NotDetected) Influenza Type B (PCR) Not Detected (NotDetected) M. pneumoniae (PCR) Not Detected (NotDetected) Parainfluenza 1 (PCR) Not Detected (NotDetected) Parainfluenza 2 (PCR) Not Detected (NotDetected) Parainfluenza 3 (PCR) Not Detected (NotDetected) Parainfluenza 4 (PCR) Not Detected (NotDetected) RSV (PCR) Not Detected (NotDetected) Entero/Rhino (PCR) Not Detected (NotDetected) Administered Medications Albumin Human (Albumin 25%) 25 gm in 100 mls @ 50 mls/hr IV ONE ONE Stop: 05/30/24 20:10 Last Admin: 05/30/24 18:36 Dose: 50 mls/hr Documented By: MARCELA Discontinued Medications Sodium Chloride (Nss) 1,000 mls @ 999 mls/hr IV .Q1H1M ONE Stop: 05/30/24 17:56 Last Admin: 05/30/24 17:58 Dose: 999 mls/hr Documented By: MARCELA Imaging Data Radiologist's Impression: Chest X-Ray 05/30/24 14:03 SINGLE VIEW CHEST CLINICAL HISTORY: Pneumonia FINDINGS: An AP, portable, upright chest radiograph is compared to study dated 05/27/2024. Correlation is made with chest CT dated 04/21/2024. A left subclavian central venous infusion port is unchanged in position. The cardiomediastinal heart is mildly enlarged. Pulmonary vascular congestion appears improved from previous. There are small pleural effusions with bibasilar consolidation, right greater than left. No pneumothorax is seen. The skeletal structures are osteopenic. There are chronic/healed left-sided rib fractures. IMPRESSION: 1. Small pleural effusions with dependent consolidation. This has not significantly changed from 05/27/2024. Continued follow-up to resolution is recommended. 2. Cardiomegaly. Pulmonary vascular congestion appears improved from 05/27/2024 ACT 112: Negative or not required by law. Electronically signed by: Scott Michaels M.D. 05/30/2024 4:37 PM Discharge Plan Visit Data Chief Complaint: Referred by Doctor Stated Complaint: FLUID REMOVAL FROM LEGS, OVARIAN CANCER ED Provider: Matilde Baez Discharge Problem: Bilateral leg edema, Elevated lactic acid level, Transaminitis Forms Stand Alone Forms: [facility] Prescriptions Prescriptions: No Action ondansetron 8 mg Tablet,Disintegrating 8 mg PO TID PRN (Reason: Nausea) Qty: 0 diphenhydramine HCl 25 mg Tablet 25 mg PO Q4H PRN (Reason: Allergic Reaction) Qty: 0 magnesium 250 mg Tablet 250 mg PO BID Qty: 0 cholecalciferol (vitamin D3) 1,000 unit Tablet 5,000 unit PO BID 30 Days Qty: 0 albuterol sulfate 2.5 mg /3 mL (0.083 %) solution for nebulization 2.5 mg inhalation Q4H PRN (Reason: Wheezing) Qty: 180 11RF doxorubicin, peg-liposomal [Doxil] 2 mg/mL suspension 2 mg IV DIRECTED Rx Instructions: every 2 weeks albuterol sulfate [Ventolin HFA] 90 mcg/actuation HFA aerosol inhaler 2 puff INHALATION Q4H PRN (Reason: Shortness Of Breath Or Wheezing) Qty: 1 11RF fluticasone propion-salmeterol [Advair Diskus] 250-50 mcg/dose blister with device 1 inh INHALATION BID Qty: 60 11RF naproxen sodium [Flanax (naproxen)] 220 mg tablet 220 mg PO BID PRN (Reason: Pain (Scale Score 1-3)) selenium 200 mcg capsule 200 mcg PO DAILY vitamin E (dl, acetate) 180 mg (400 unit) capsule 180 mg PO DAILY zinc gluconate 25 mg tablet 50 mg PO DAILY cannabidiol 1 applic topical DIRECTED PRN (Reason: Pain (Scale Score 1-3)) Pataday Once Daily Relief 0.7 % drops 1 drp ophthalmic (eye) DAILY PRN (Reason: Dry Eyes) loratadine [Allergy Relief (loratadine)] 10 mg tablet,disintegrating 10 mg PO UD Rx Instructions: take days of Chemo Immune Support (vit c,d,zinc) 180 mg-10 mcg- 5.5 mg-150 mg capsule 1 cap PO DIRECTED epinephrine 0.3 mg/0.3 mL auto-injector 0.3 mg IM UD PRN (Reason: ALLERGY REACTIONS) Qty: 2 2RF hydrocodone-acetaminophen 5-325 mg tablet 1 tab PO DAILY PRN (Reason: Pain) Qty: 6 0RF cetirizine [Zyrtec] 10 mg tablet 10 mg PO HS prochlorperazine maleate [Compazine] 10 mg Tablet 10 mg PO UD PRN (Reason: Nausea) docusate sodium [Colace] 100 mg Capsule 100 mg PO TID PRN (Reason: Constipation) lysine 500 mg tablet 1,000 mg PO BID phytonadione (vitamin K1) [vitamin K] 1 mg/0.5 mL Solution 1 mg UD Rx Instructions: they dont have this medication on her list vitamin B complex Capsule 1 cap PO QAM vitamin K2 100 mcg Capsule 100 mcg PO QAM ypeygceo-xris-uonxj-oreg-capry 100 mg-150 mg- 50 mg-150 mg Capsule 1 cap PO QAM cyclobenzaprine 5 mg tablet 5 mg PO TID PRN (Reason: Muscle Spasm) estradiol 0.01 % (0.1 mg/gram) cream 1 g VAGINAL UD Rx Instructions: every 3 weeks duloxetine 30 mg capsule,delayed release(DR/EC) 30 mg PO QAM duloxetine 60 mg capsule,delayed release(DR/EC) 60 mg PO HS acyclovir 400 mg tablet 400 mg PO BID Rx Instructions: take 400 mg orally twice a day=take chemo week 1600 mg (2 days pre-8 days post) shingles suppression pregabalin [Lyrica] 75 mg capsule 75 mg PO UD Rx Instructions: 75 mg PO in the AM and 150mg in the PM; Referrals Referrals: Pk Whitney MD [Primary Care Provider] -
[2024-05-30 16:30] LABS: Basophils # (auto) 0.04 K/uL (0.00-0.20); Basophils % (auto) 0.9 %; Eosinophils # (auto) 0.04 K/uL (0.00-0.50); Eosinophils % (auto) 0.9 %; Hematocrit (blood only) 35.7 % (37.0-47.0); Hemoglobin 12.7 g/dl (12.0-16.0); Immature Granulocytes # (auto) 0.02 K/uL (0.01-0.20); Immature Granulocytes % (auto) 0.4 %; Lymphocytes # (auto) 0.43 K/uL (1.20-3.40); Lymphocytes % (auto) 9.3 %; Mean Corpuscular Hemoglobin 33.2 pg (25.0-34.0); Mean Corpuscular Hgb Conc 35.6 g/dL (32.0-36.0); Mean Corpuscular Volume 93.2 fL (80.0-100.0); Mean Platelet Volume 9.8 fL (9.4-12.4); Monocytes % (auto) 34.8 %; Neutrophils # (auto) 2.47 K/uL (1.40-6.50); Neutrophils % (auto) 53.7 %; Platelet Count 353 K/uL (130-400); RDW Coefficient of Variation 19.9 % (11.5-14.5); RDW Standard Deviation 67.7 fL (36.4-46.3); Red Blood Count 3.83 M/uL (4.20-5.40)
--- NOTE | 2024-05-30 16:38 | XRay Report ---
SINGLE VIEW CHEST CLINICAL HISTORY: Pneumonia FINDINGS: An AP, portable, upright chest radiograph is compared to study dated 05/27/2024. Correlation is made with chest CT dated 04/21/2024. A left subclavian central venous infusion port is unchanged i n position. The cardiomediastinal heart is mildly enlarged. Pulmonary vascular congestion appears imp roved from previous. There are small pleural effusions with bibasilar consolidation, right greater th an left. No pneumothorax is seen. The skeletal structures are osteopenic. There are chronic/healed le ft-sided rib fractures. IMPRESSION: 1. Small pleural effusions with dependent consolidation. This has not significantly changed from 05/27. Continued follow-up to resolution is recommended. 2. Cardiomegaly. Pulmonary vascular congestion appears improved from 05/27/2024 ACT 112: Negative or not required by law. Electronically signed by: Scott Michaels M.D. 05/30/2024 4:37 PM
[2024-05-30 16:51] LABS: Alanine Aminotransferase 62 U/L (7-52); Albumin Globulin Ratio 0.9 (0.9-2); Albumin Level 2.6 gm/dl (3.4-5.0); Alkaline Phosphatase 373 U/L (34-104); Anion Gap 10 (3-11); Aspartate Aminotransferase 154 U/L (13-39); Blood Urea Nitrogen 12 mg/dl (6-23); Calcium 8.1 mg/dl (8.6-10.3); Carbon Dioxide 29 mmol/L (21-32); Chloride 95 mmol/L (98-107); Globulin 2.9 gm/dl (2.5-4.0); Glucose 106 mg/dl (70-99(Fasting)); Lipase 12 U/L (11-82); Potassium 3.4 mmol/L (3.5-5.1); Sodium 134 mmol/L (136-145); Total Protein 5.5 gm/dl (6.0-8.3)
[2024-05-30 17:12] LABS: Troponin I High Sensitivity 8.1 pg/ml (0-14)
[2024-05-30 17:45] LABS: Adenovirus PCR Not Detected (NotDetected); Bordetella parapertussis PCR Not Detected (NotDetected); Bordetella pertussis PCR Not Detected (NotDetected); Chlamydia pneumoniae PCR Not Detected (NotDetected); Coronavirus 229E PCR Not Detected (NotDetected); Coronavirus CoV-2 (COVID19)PCR Not Detected (NotDetected); Coronavirus HKU1 PCR Not Detected (NotDetected); Coronavirus NL63 PCR Not Detected (NotDetected); Coronavirus OC43PCR Not Detected (NotDetected); Human Metapneumovirus PCR Not Detected (NotDetected); Influenza A PCR Not Detected (NotDetected); Influenza B PCR Not Detected (NotDetected); Mycoplasma pneumoniae PCR Not Detected (NotDetected); Parainfluenza Virus 1 PCR Not Detected (NotDetected); Parainfluenza Virus 2 PCR Not Detected (NotDetected); Parainfluenza Virus 3 PCR Not Detected (NotDetected); Parainfluenza Virus 4 PCR Not Detected (NotDetected); Respiratory Syncytial VirusPCR Not Detected (NotDetected); Rhinovirus/Enterovirus PCR Not Detected (NotDetected)
[2024-05-30] MEDS: SODIUM CHLORIDE 0.9% 1,000 ML IV ONE (17:58)
[2024-05-30] MEDS: ALBUMIN 25% 25 GM/100 ML VIAL IV ONE (18:36)
--- NOTE | 2024-05-30 19:46 | History & Physical Report ---
Date of Service May 30, 2024 Assessment & Plan (1) Bilateral leg edema: Plan: 59yo female with history of metastatic ovarian carcinoma presenting with 3-4 days of progressive bilateral LE edema and abdominal ascites. Likely secondary to progressive liver dysfunction in setting of metastatic disease. -Observation to medical floor -Check bilateral LE doppler -Check UA for protein -Check TSH -Elevate legs (2) Ascites: Plan: Patient with 3-4 days of worsening abdominal ascites. Given her history of ovarian malignancy with liver metastasis concerning for complication of cancer - malignant ascites with carcinomatosis vs compromised liver function causing her edema and ascites. She had a diagnostic and therapeutic paracentesis performed today ultrasound guidance with 3.5 L of fluid removed. Fluid was sent to the lab for cytology. patient was administered albumin post paracentesis. monitor cardiac no history of ascites Follow-up cytology studies. Initiate Lasix 40mg po daily (3) Cough: Plan: Etiology of cough unclear - has been ongoing -Guaifenesin PRN -Continue inhalers - Albuterol PRN, Fluticasone/Vilanterol (4) Hypokalemia: Plan: K=3.1, replete -Repeat BMP in AM (5) Ovarian cancer: Plan: Patient with longstanding history of ovarian cancer, metastatic disease to the liver - presently on chemotherapy -Oncology Consultation appreciated History of Present Illness Chief Complaint: abdominal ascites, LE edema Primary Care Provider: Pk Whitney MD Miracle Pal is a 59yo female with metastatic ovarian carcinoma presenting with worsening bilateral LE edema and abdominal distention. Patient was initially diagnosed with ovarian carcinoma in 2007. Since then she has undergone CL/BSO, multiple combinations of chemotherapy as well as radiation therapy. Most recently patient was found to have disease progression in the liver on an image 08/31/23. She completed 6 cycles of Carboplatin/Doxil. Repeat imaging with stable metastatic lesions as well as loculated fluid in the LUQ. She is currently receiving maintenance Doxil Avastin. She follows with Oncology locally as well as with [facility] in [place]. [facility] for her regularly scheduled IVF infusion which she receives on her off week from chemotherapy. She pointed out her progressive bilateral LE edema over the last 3-4 days as well as her significant abdominal distention. She had an ultrasound guided paracentesis performed with 3.5L of ascitic fluid removed. Fluid was sent to the lab for assessment. Patient additionally complaining of ongoing cough with post-tussive vomiting. She was diagnosed with PNA appx 1 month ago and has completed treatment for this but has had a cough ever since. Patient was seen by her Oncologist and referred to the ER for continued workup of her bilateral LE edema. In the ER patient is afebrile, HD stable ER Course: Albumin 25gm NSS x 1L Allergies Allergy/AdvReac Type Severity Reaction Status Date / Time bee venom protein (honey bee) Allergy Severe ANAPHYLAXIS Verified 05/14/24 13:42 Fish Containing Products Allergy Severe ANAPHYLAXIS Verified 05/14/24 13:42 TO SEAFOOD Iodinated Contrast Media Allergy Severe ANAPHYLAXIS Verified 05/14/24 13:42 monosodium glutamate Allergy Severe Anaphylaxis Verified 05/14/24 13:42 Penicillins Allergy Severe ANAPHYLAXIS Verified 05/14/24 13:42 shellfish derived Allergy Severe ANAPHYLAXIS Verified 05/14/24 13:42 TO SEAFOOD black walnut Allergy Intermediate SWELLING, Verified 05/14/24 13:42 HIVES AND ASTHMA ATTACK cantaloupe Allergy Intermediate Hives Verified 05/14/24 13:42 coconut Allergy Intermediate SWELLING, Verified 05/14/24 13:42 HIVES, ASTHMA ATTACK codeine Allergy Intermediate SWELLING, Verified 05/14/24 13:42 HIVES, ASTHMA ATTACK iodine Allergy Intermediate SWELLING, Verified 05/14/24 13:42 RASH, BLISTERS, BLEEDING rye grass Allergy Intermediate Swelling, Verified 05/14/24 13:42 hives, migraines tetracycline Allergy Intermediate SWELLING, Verified 05/14/24 13:42 HIVES, ASTHMA ATTACK latex Allergy Unknown SWELLING, Verified 05/14/24 13:42 BLEEDING AT SITE, BLISTERS gabapentin AdvReac Unknown Drowsy Unverified 05/14/24 13:42 Home Medications Medication Instructions Recorded Confirmed Type ondansetron 8 mg disintegrating 8 mg PO TID PRN Nausea #0 tabs 03/03/14 05/30/24 History tablet diphenhydramine HCl 25 mg tablet 25 - 50 mg PO Q4H PRN Allergic 03/10/14 05/30/24 History Reaction #0 caps magnesium 250 mg tablet 250 mg PO UD ##0 10/05/15 05/30/24 History docusate sodium 100 mg capsule 100 mg PO DAILY 08/02/18 05/30/24 History (Colace) prochlorperazine maleate 10 mg 10 mg PO .EVERY 6-8 HOURS PRN 08/02/18 05/30/24 History tablet (Compazine) Nausea cetirizine 10 mg tablet (Zyrtec) 10 mg PO HS 06/19/19 05/30/24 History vitamin B complex 1 cap PO QAM 07/12/21 05/30/24 History vitamin K2 100 mcg capsule 100 mcg PO QAM 07/12/21 05/30/24 History doxorubicin, peg-liposomal 2 mg/mL 2 mg IV DIRECTED 01/29/23 05/30/24 History intravenous suspension (Doxil) albuterol sulfate 90 mcg/actuation 2 puff inhalation Q4H PRN 07/18/23 05/30/24 Rx aerosol inhaler (Ventolin HFA) Shortness Of Breath Or Wheezing #1 inhaler fluticasone 250 mcg-salmeterol 50 1 inh inhalation BID #60 ea 07/18/23 05/30/24 Rx mcg/dose blistr powdr for inhalation (Advair Diskus) cannabidiol 1 applic topical DIRECTED PRN 01/23/24 05/30/24 History Pain (Scale Score 1-3) epinephrine 0.3 mg/0.3 mL 0.3 mg (0.3 mL) IM UD PRN ALLERGY 01/23/24 05/30/24 Rx injection, auto-injector REACTIONS #2 ea loratadine 10 mg disintegrating 10 mg PO UD 01/23/24 05/30/24 History tablet (Allergy Relief (loratadine)) naproxen sodium 220 mg tablet 220 mg PO BID PRN Pain (Scale 01/23/24 05/30/24 History (Flanax (naproxen)) Score 1-3) olopatadine 0.7 % eye drops 1 drp ophthalmic (eye) DAILY PRN 01/23/24 05/30/24 History (Pataday Once Daily Relief) Dry Eyes selenium 200 mcg capsule 200 mcg PO Q OTHER DAY 01/23/24 05/30/24 History vit C 180 mg-D3 10 mcg-zinc 5.5 1 cap PO DIRECTED PRN takes 01/23/24 05/30/24 History yz-pnhizm-ibqnggf-tadeo-herb during cold & flu season capsule (Immune Support (vit c, d and zinc)) vitamin E (dl, acetate) 180 mg 180 mg PO Q OTHER DAY 01/23/24 05/30/24 History (400 unit) capsule zinc gluconate 25 mg tablet 50 mg PO DAILY 01/23/24 05/30/24 History albuterol sulfate 2.5 mg/3 mL 2.5 mg (3 mL) inhalation Q4H PRN 05/05/24 05/30/24 Rx (0.083 %) solution for nebulization Wheezing #180 mL pregabalin 75 mg capsule (Lyrica) 75 mg PO UD 05/13/24 05/30/24 History Turmeric Curcumin 1,500 mg PO DAILY 05/30/24 05/30/24 History acyclovir 400 mg tablet 400 mg PO BID 05/30/24 05/30/24 History cholecalciferol (vitamin D3) 125 125 mcg PO UD 05/30/24 05/30/24 History mcg (5,000 unit) tablet (Vitamin D3) cyclobenzaprine 5 mg tablet 5 mg PO TID PRN Muscle Spasm 05/30/24 05/30/24 History dexamethasone 4 mg tablet 4 mg PO UD 05/30/24 05/30/24 History duloxetine 30 mg capsule,delayed 30 mg PO QAM 05/30/24 05/30/24 History release duloxetine 60 mg capsule,delayed 60 mg PO HS 05/30/24 05/30/24 History release estradiol 0.01% (0.1 mg/gram) 1 g vaginal UD 05/30/24 05/30/24 History vaginal cream hydrocodone 5 mg-acetaminophen 325 1 tab PO .EVERY 4-6 HOURS PRN 05/30/24 05/30/24 History mg tablet MOD-SEVERE PAIN lysine HCl 1,000 mg tablet 1,000 mg PO DAILY 05/30/24 05/30/24 History prednisone 50 mg tablet 50 mg PO UD 05/30/24 05/30/24 History prednisone 50 mg tablet 50 mg PO UD PRN FOR CT 05/30/24 05/30/24 History zinc gluconate 50 mg tablet 50 mg PO Q OTHER DAY 05/30/24 05/30/24 History Past Med/Surg History Problem List (Updated 05/30/24 @ 20:23 by Micaela Nicole DO) Ascites Cough Transaminitis (Acute) Elevated lactic acid level (Acute) Bilateral leg edema (Acute) Hypokalemia Aneurysm Pneumonia Metastatic cancer (Acute) Pleural effusion (Acute) Shortness of breath (Acute) Hemoptysis (Acute) Pleural effusion, left Right peroneal nerve palsy Pulmonary nodules/lesions, multiple Cognitive dysfunction Chemotherapy-induced peripheral neuropathy Idiopathic polyneuropathy Ovarian cancer (Acute) Post herpetic neuralgia (Acute) Asthma (Acute) Common bile duct (CBD) obstruction Medical History (Updated 05/30/24 @ 20:23 by Micaela Nicole DO) Migraine without status migrainosus, not intractable History of biliary stent insertion has currently Peripheral neuropathy 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; NO RECENT ISSUES Ureter injury CONGENITAL Depression Sleep apnea NO DEVICE Asthma NO RECENT ISSUES Surgical History History of cataract surgery History of ERCP EGD/EUS/ERCP= 06/12/18= GRADE VIEW 3, MAC 3.0, ETT 7.0 AT [facility] History of ureter repair 30+ YEARS AGO History of total abdominal hysterectomy and bilateral salpingo-oophorectomy History of laparoscopy History of breast biopsy History of tooth extraction History of tonsillectomy History of vascular access device A-PORT (LEFT CHEST) Family History Mother Skin cancer Father Lung cancer Social History Smoking Status: Never smoker Second Hand Exposure: No; Do You Dip or Chew Tobacco: No; Hx Alcohol Use: No Hx Substance Use: No Preferred Language: British Communication Ability: Effective Visual Impairment: No 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 Beliefs That Will Affect Care: None Current Living Situation: Spouse Feels Safe at Home: Yes Assistive Devices: Scooter/Electric Scooter and Walker Review of Systems Review of Systems: All systems reviewed & are unremarkable except as noted in HPI & below Physical Exam Physical Exam: General: chronically ill appearing female, resting comfortably, NAD Skin: warm, dry, intact, no rashes or lesions HEENT: NC/AT, PERRL, EOMI, mild scleral icterus, conjunctiva without injection, external ear normal to inspection and nontender, nares patent, moist mucus membranes, dentition intact, no oropharyngeal lesions, neck supple, trachea midline, no LAD, no thyromegaly, no JVD Heart: +S1/S2, regular, no m/r/g Lungs: equal air entry bilaterally, no rales/rhonchi/wheezes Abd: +BS, soft, mild abdominal tenderness, no rebound/guarding, BandAid in place from prior paracentesis with no bleeding or drainage Ext: cool, 3+ pitting edema of bilateral LE Neuro: nonfocal, patient AA&O x 4, speech intact, no facial droop, moving all extremities on command with equal strength 5/5 Results & Data Results & Data Vital Signs (Past 12 Hours) Vital Signs Temp Pulse Resp BP Pulse Ox O2 Del Method 05/30/24 18:33 95 H 22 117/77 95 05/30/24 17:30 97 H 20 119/79 98 05/30/24 17:00 100 H 26 H 118/78 96 05/30/24 16:30 92 H 23 134/86 97 05/30/24 16:12 93 H 05/30/24 14:01 36.4 C L 99 H 20 128/93 96 Room Air Laboratory Results Laboratory Results WBC 4.60 K/ul (4.8-10.8) L 05/30/24 16:00 RBC 3.83 M/uL (4.20-5.40) L 05/30/24 16:00 Hgb 12.7 g/dl (12.0-16.0) 05/30/24 16:00 Hct 35.7 % (37.0-47.0) L 05/30/24 16:00 MCV 93.2 fL (80.0-100.0) 05/30/24 16:00 MCH 33.2 pg (25.0-34.0) 05/30/24 16:00 MCHC 35.6 g/dL (32.0-36.0) 05/30/24 16:00 RDW Std Deviation 67.7 fL (36.4-46.3) H 05/30/24 16:00 RDW Coeff of Ebenezer 19.9 % (11.5-14.5) H 05/30/24 16:00 Plt Count 353 K/uL (130-400) 05/30/24 16:00 MPV 9.8 fL (9.4-12.4) 05/30/24 16:00 Immature Gran % (Auto) 0.4 % 05/30/24 16:00 Neut % (Auto) 53.7 % 05/30/24 16:00 Lymph % (Auto) 9.3 % 05/30/24 16:00 Gem % (Auto) 34.8 % 05/30/24 16:00 Eos % (Auto) 0.9 % 05/30/24 16:00 Baso % (Auto) 0.9 % 05/30/24 16:00 Neut # (Auto) 2.47 K/uL (1.40-6.50) 05/30/24 16:00 Lymph # (Auto) 0.43 K/uL (1.20-3.40) L 05/30/24 16:00 Gem # (Auto) 1.60 K/uL (0.11-0.59) H 05/30/24 16:00 Eos # (Auto) 0.04 K/uL (0.00-0.50) 05/30/24 16:00 Baso # (Auto) 0.04 K/uL (0.00-0.20) 05/30/24 16:00 Immature Gran # (Auto) 0.02 K/uL (0.01-0.20) 05/30/24 16:00 Sodium 134 mmol/L (136-145) L 05/30/24 16:00 Potassium 3.4 mmol/L (3.5-5.1) L 05/30/24 16:00 Chloride 95 mmol/L (98-107) L 05/30/24 16:00 Carbon Dioxide 29 mmol/L (21-32) 05/30/24 16:00 Anion Gap 10 (3-11) 05/30/24 16:00 BUN 12 mg/dl (6-23) 05/30/24 16:00 Creatinine 0.60 mg/dl (0.6-1.2) 05/30/24 16:00 Est Cr Clr Drug Dosing Not Reportable 05/30/24 16:00 eGFR 103.33 05/30/24 16:00 BUN/Creatinine Ratio 20.0 (10-20) 05/30/24 16:00 Glucose 106 mg/dl (70-99(Fasting)) H 05/30/24 16:00 Lactate 2.7 mmol/L (0.4-2.0) H* 05/30/24 19:10 Calcium 8.1 mg/dl (8.6-10.3) L 05/30/24 16:00 Total Bilirubin 2.0 mg/dl (0.2-1.0) H 05/30/24 16:00 AST 154 U/L (13-39) H 05/30/24 16:00 ALT 62 U/L (7-52) H 05/30/24 16:00 Alkaline Phosphatase 373 U/L (34-104) H 05/30/24 16:00 Troponin I High Sens 8.1 pg/ml (0-14) 05/30/24 16:00 Total Protein 5.5 gm/dl (6.0-8.3) L 05/30/24 16:00 Albumin 2.6 gm/dl (3.4-5.0) L 05/30/24 16:00 Globulin 2.9 gm/dl (2.5-4.0) 05/30/24 16:00 Albumin/Globulin Ratio 0.9 (0.9-2) 05/30/24 16:00 Lipase 12 U/L (11-82) 05/30/24 16:00 Procalcitonin 0.47 ng/ml (0-0.5) 05/30/24 16:00 Adenovirus (PCR) Not Detected (NotDetected) 05/30/24 16:38 B. pertussis DNA (PCR) Not Detected (NotDetected) 05/30/24 16:38 B.parapertussis DNA PCR Not Detected (NotDetected) 05/30/24 16:38 C. pneumoniae DNA (PCR) Not Detected (NotDetected) 05/30/24 16:38 Coronavirus OC43 (PCR) Not Detected (NotDetected) 05/30/24 16:38 Coronavirus HKU1 (PCR) Not Detected (NotDetected) 05/30/24 16:38 Coronavirus 229E (PCR) Not Detected (NotDetected) 05/30/24 16:38 SARS-CoV-2 (PCR) Not Detected (NotDetected) 05/30/24 16:38 Coronavirus NL63 (PCR) Not Detected (NotDetected) 05/30/24 16:38 Human Metapneumovir PCR Not Detected (NotDetected) 05/30/24 16:38 Influenza Type A (PCR) Not Detected (NotDetected) 05/30/24 16:38 Influenza Type B (PCR) Not Detected (NotDetected) 05/30/24 16:38 M. pneumoniae (PCR) Not Detected (NotDetected) 05/30/24 16:38 Parainfluenza 1 (PCR) Not Detected (NotDetected) 05/30/24 16:38 Parainfluenza 2 (PCR) Not Detected (NotDetected) 05/30/24 16:38 Parainfluenza 3 (PCR) Not Detected (NotDetected) 05/30/24 16:38 Parainfluenza 4 (PCR) Not Detected (NotDetected) 05/30/24 16:38 RSV (PCR) Not Detected (NotDetected) 05/30/24 16:38 Entero/Rhino (PCR) Not Detected (NotDetected) 05/30/24 16:38 Impressions Chest X-Ray 05/30/24 14:03 SINGLE VIEW CHEST CLINICAL HISTORY: Pneumonia FINDINGS: An AP, portable, upright chest radiograph is compared to study dated 05/27/2024. Correlation is made with chest CT dated 04/21/2024. A left subclavian central venous infusion port is unchanged in position. The cardiomediastinal heart is mildly enlarged. Pulmonary vascular congestion appears improved from previous. There are small pleural effusions with bibasilar consolidation, right greater than left. No pneumothorax is seen. The skeletal structures are osteopenic. There are chronic/healed left-sided rib fractures. IMPRESSION: 1. Small pleural effusions with dependent consolidation. This has not significantly changed from 05/27/2024. Continued follow-up to resolution is recommended. 2. Cardiomegaly. Pulmonary vascular congestion appears improved from 05/27/2024 ACT 112: Negative or not required by law. Electronically signed by: Scott Michaels M.D. 05/30/2024 4:37 PM Code Status & VTE Plan VTE Prophylaxis Plan VTE Prophylaxis will be ordered: Yes PG Care Time/CCT Total # of Minutes Spent Total Time Spent with Patient: Total time spent is greater than 50% in coordination of care (as documented) at patient's floor/unit and/or counseling patient: Coding Level of Care Code 21710 INT INP/OBS CARE 2MIN Diagnoses Bilateral leg edema R60.0 Ascites R18.8 Cough R05.9 Hypokalemia E87.6 Ovarian cancer C56.9
[2024-05-30] MEDS: guaiFENesin SUGAR FREE 100 MG/5 ML UDC PO STA (21:23)
[2024-05-30] MEDS ORDERED: dexAMETHasone 4 MG TAB PO PRN (21:31)
[2024-05-30] MEDS ORDERED: guaiFENesin SUGAR FREE 100 MG/5 ML UDC PO PRN (21:31)
[2024-05-30] MEDS ORDERED: PROCHLORPERAZINE MALEATE 10 MG TAB PO PRN (21:31)
[2024-05-30] MEDS ORDERED: ALBUTEROL HFA 8 GM INHALER INH PRN (21:31)
[2024-05-30] MEDS ORDERED: ONDANSETRON INJ 2 MG/ML 2 ML VIAL IV PRN (21:31)
[2024-05-30 22:15] LABS: INR 1.2 (0.9-1.1); Prothrombin Time 12.5 Seconds (9.0-12.0)
[2024-05-30 22:25] LABS: Magnesium 1.6 mg/dl (1.7-2.4); Phosphorus 3.3 mg/dl (2.5-4.9)
[2024-05-30 22:41] LABS: Thyroid Stimulating Hormone 4.457 uIu/ml (0.300-4.500)
[2024-05-30] MEDS: CYCLOBENZAPRINE HCL 5 MG TAB PO PRN (23:22)
[2024-05-30] MEDS: DULoxetine HCL 60 MG CAP PO SCH (23:23)
[2024-05-30] MEDS: CETIRIZINE HCL 10 MG TABLET PO SCH (23:23)
[2024-05-30] MEDS: ACYCLOVIR 400 MG TAB PO SCH (23:24)
[2024-05-30] MEDS: PREGABALIN 75 MG CAP PO SCH (23:32)
[2024-05-30] MEDS: POTASSIUM CHLORIDE CRTAB 20 MEQ TABCR PO STA (23:58)
[2024-05-31 02:41] LABS: Appearance Urine Clear (Clear); Bacteria Urine Automated None Seen (None Seen); Bilirubin Urine 1+ (Negative); Blood Urine Negative (Negative); Cast Urine Automated 0-2 /lpf (0-2); Color Urine Dark Yellow; Glucose Urine UA Negative (Negative); Ketones Urine Negative (Negative); Leukocyte Esterase Urine Trace (Negative); Nitrite Urine Negative (Negative); Protein Urine Negative (Negative); RBC Urine Automated 0-2 /hpf (0-2); Specific Gravity Urine 1.023 (1.000-1.030); Urobilinogen Urine Positive (Negative); WBC Urine Automated 0-5 /hpf (0-5)
[2024-05-31] MEDS: NAPROXEN 250 MG TAB PO PRN (04:23)
[2024-05-31] MEDS: MAGNESIUM SULFATE / D5W 1 GM/100 ML BAG IV SCH (06:10)
[2024-05-31 06:57] LABS: Hematocrit (blood only) 28.8 % (37.0-47.0); Hemoglobin 10.2 g/dl (12.0-16.0); Mean Corpuscular Hemoglobin 33.2 pg (25.0-34.0); Mean Corpuscular Hgb Conc 35.4 g/dL (32.0-36.0); Mean Corpuscular Volume 93.8 fL (80.0-100.0); Mean Platelet Volume 9.7 fL (9.4-12.4); Platelet Count 291 K/uL (130-400); RDW Standard Deviation 67.7 fL (36.4-46.3); Red Blood Count 3.07 M/uL (4.20-5.40); White Blood Count 3.61 K/ul (4.8-10.8)
[2024-05-31 07:15] LABS: Albumin Level 2.3 gm/dl (3.4-5.0); BUN Creatinine Ratio 23.5 (10-20); Bilirubin Direct 0.9 mg/dl (0-0.2); Bilirubin,Total 1.7 mg/dl (0.2-1.0); Calcium 7.1 mg/dl (8.6-10.3); Potassium 3.3 mmol/L (3.5-5.1); Total Protein 4.3 gm/dl (6.0-8.3)
[2024-05-31] MEDS: DULoxetine HCL 30 MG CAP PO SCH (09:31)
[2024-05-31] MEDS: PREGABALIN 75 MG CAP PO SCH (09:31)
[2024-05-31] MEDS: POTASSIUM CHLORIDE CRTAB 20 MEQ TABCR PO STA (09:31)
[2024-05-31] MEDS: FUROSEMIDE 40 MG TAB PO SCH (09:31)
[2024-05-31] MEDS: DOCUSATE SODIUM 100 MG CAP PO SCH (09:31)
[2024-05-31] MEDS: ENOXAPARIN INJ 40 MG/0.4 ML SYR SQ SCH (09:32)
[2024-05-31] MEDS: FLUTICASONE/VILANTEROL 200/25MCG 14 PUFFS/INHALER INH SCH (09:32)
[2024-05-31] MEDS: SPIRONOLACTONE 100 MG TAB PO SCH (09:32)
--- NOTE | 2024-05-31 11:18 | Electrocardiogram Report ---
Test Reason : Blood Pressure : */* mmHG Vent. Rate : 100 BPM Atrial Rate : 100 BPM P-R Int : 182 ms QRS Dur : 64 ms QT Int : 346 ms P-R-T Axes : 30 21 37 degrees QTcB Int : 446 ms Normal sinus rhythm Low voltage QRS Cannot rule out Anteroseptal infarct , age undetermined Abnormal ECG When compared with ECG of 23-May-2024 11:46, QRS axis Shifted left Minimal criteria for Anteroseptal infarct are now Present Nonspecific T wave abnormality now evident in Inferior leads T wave inversion now evident in Anterior leads Nonspecific T wave abnormality, improved in Lateral leads Confirmed by Teja Mahoney ([id number]) on 05/31/2024 11:18:40 AM Referred By: REFERRED SELF Confirmed By: Teja Mahoney
[2024-05-31] MEDS: HYDROCODONE/ACETAMOPHEN 5/325MG TAB PO PRN (20:38)
[2024-05-31] MEDS: PREGABALIN 150 MG CAP PO SCH (20:38)
[2024-06-01] MEDS: HEPARIN 100 UNIT/ML 5ML FLUSH FLUSH PRN (08:07)
--- NOTE | 2024-06-01 08:22 | Hospitalist Progress Note ---
Date of Service May 31, 2024 Assessment & Plan (1) Bilateral leg edema: Plan: 59yo female with history of metastatic ovarian carcinoma presenting with 3-4 days of progressive bilateral LE edema and abdominal ascites. Likely secondary to progressive liver dysfunction in setting of metastatic disease. -Observation to medical floor -Check bilateral LE doppler -Check UA for protein -Check TSH -Elevate legs will add spironolactone and continue lasix (2) Ascites: Plan: Patient with 3-4 days of worsening abdominal ascites. Given her history of ovarian malignancy with liver metastasis concerning for complication of cancer - malignant ascites with carcinomatosis vs compromised liver function causing her edema and ascites. She had a diagnostic and therapeutic paracentesis performed today ultrasound guidance with 3.5 L of fluid removed. Fluid was sent to the lab for cytology. patient was administered albumin post paracentesis. monitor cardiac no history of ascites Follow-up cytology studies. Added spironolactone to Lasix 40mg po daily (3) Cough: Plan: Etiology of cough unclear - has been ongoing -Guaifenesin PRN -Continue inhalers - Albuterol PRN, Fluticasone/Vilanterol (4) Hypokalemia: Plan: K=3.1, replete -Repeat BMP in AM (5) Ovarian cancer: Plan: Patient with longstanding history of ovarian cancer, metastatic disease to the liver - presently on chemotherapy -Oncology Consultation appreciated Admission and Anticipated Discharge Date Admission Date: May 30, 2024 Subjective 59 yo female reports her abdomen feels better than yesterday however, she states it is accumulating. Review of Systems Review of Systems: All systems reviewed & are unremarkable except as noted in HPI & below Physical Exam Physical Exam: General: chronically ill appearing female, resting comfortably, NAD Skin: warm, dry, intact, no rashes or lesions HEENT: NC/AT, PERRL, EOMI, mild scleral icterus, conjunctiva without injection, external ear normal to inspection and nontender, nares patent, moist mucus membranes, dentition intact, no oropharyngeal lesions, neck supple, trachea mi dline, no LAD, no thyromegaly, no JVD Heart: +S1/S2, regular, no m/r/g Lungs: equal air entry bilaterally, no rales/rhonchi/wheezes Abd: +BS, soft, mild abdominal tenderness, no rebound/guarding, BandAid in place from prior paracentesis with no bleeding or drainage Ext: cool, 3+ pitting edema of bilateral LE Neuro: nonfocal, patient AA&O x 4, speech intact, no facial droop, moving all extremities on command with equal strength 5/5 PG Care Time/CCT Total # of Minutes Spent Total Time Spent with Patient: Total time spent is greater than 50% in coordination of care (as documented) at patient's floor/unit and/or counseling patient: Coding Level of Care Code 55740 SUB INP/OBS CARE 2/35MIN Diagnoses Bilateral leg edema R60.0 Ascites R18.8 Cough R05.9 Hypokalemia E87.6 Ovarian cancer C56.9
--- NOTE | 2024-06-01 09:04 | Oncology Consultation ---
Date of Consultation June 01, 2024 Assessment & Plan (1) Metastatic cancer: (2) Ascites: Plan -Recommend obtaining CT CAP without IV contrast today due to concern for disease progression. -If patient is not discharged home today, recommend considering repeat paracentesis tomorrow. Thank you for this consult. Oncology will plan to see patient in clinic within the next 1 to 2 weeks to discuss treatment plan depending on CT scan results. Thank you for this consult. History of Present Illness Reason for Consultation: h/o ovarian CA, ascites s/p paracentesis Attending Physician: Leandro Winters History of Present Illness 59-year-old female with history of metastatic ovarian cancer for which she is currently on liposomal doxorubicin and bevacizumab. She presented to [facility] on 05/30/2024 complaining of bilateral lower extremity swelling and abdominal distention. She underwent paracentesis on 05/30/2024 with removal of 3.5 L of ascitic fluid. States that she is feeling better although she feels like ascites might be building up again. Complains of abdominal discomfort and lower extremity swelling but otherwise denies any new issues. Of note, CA125 has been increasing with most recent level of 6929 concerning for disease progression. She was post to have restaging CT chest, abdomen and pelvis tomorrow after 3 days of premedication due to remote history of IV contrast allergy Allergies Allergy/AdvReac Type Severity Reaction Status Date / Time bee venom protein (honey bee) Allergy Severe ANAPHYLAXIS Verified 05/14/24 13:42 Fish Containing Products Allergy Severe ANAPHYLAXIS Verified 05/14/24 13:42 TO SEAFOOD Iodinated Contrast Media Allergy Severe ANAPHYLAXIS Verified 05/14/24 13:42 monosodium glutamate Allergy Severe Anaphylaxis Verified 05/14/24 13:42 Penicillins Allergy Severe ANAPHYLAXIS Verified 05/14/24 13:42 shellfish derived Allergy Severe ANAPHYLAXIS Verified 05/14/24 13:42 TO SEAFOOD black walnut Allergy Intermediate SWELLING, Verified 05/14/24 13:42 HIVES AND ASTHMA ATTACK cantaloupe Allergy Intermediate Hives Verified 05/14/24 13:42 coconut Allergy Intermediate SWELLING, Verified 05/14/24 13:42 HIVES, ASTHMA ATTACK codeine Allergy Intermediate SWELLING, Verified 05/14/24 13:42 HIVES, ASTHMA ATTACK iodine Allergy Intermediate SWELLING, Verified 05/14/24 13:42 RASH, BLISTERS, BLEEDING rye grass Allergy Intermediate Swelling, Verified 05/14/24 13:42 hives, migraines tetracycline Allergy Intermediate SWELLING, Verified 05/14/24 13:42 HIVES, ASTHMA ATTACK latex Allergy Unknown SWELLING, Verified 05/14/24 13:42 BLEEDING AT SITE, BLISTERS gabapentin AdvReac Unknown Drowsy Unverified 05/14/24 13:42 Home Medications Medication Instructions Recorded Confirmed Type ondansetron 8 mg disintegrating 8 mg PO TID PRN Nausea #0 tabs 03/03/14 05/30/24 History tablet diphenhydramine HCl 25 mg tablet 25 - 50 mg PO Q4H PRN Allergic 03/10/14 05/30/24 History Reaction #0 caps magnesium 250 mg tablet 250 mg PO UD ##0 10/05/15 05/30/24 History docusate sodium 100 mg capsule 100 mg PO DAILY 08/02/18 05/30/24 History (Colace) prochlorperazine maleate 10 mg 10 mg PO .EVERY 6-8 HOURS PRN 08/02/18 05/30/24 History tablet (Compazine) Nausea cetirizine 10 mg tablet (Zyrtec) 10 mg PO HS 06/19/19 05/30/24 History vitamin B complex 1 cap PO QAM 07/12/21 05/30/24 History vitamin K2 100 mcg capsule 100 mcg PO QAM 07/12/21 05/30/24 History doxorubicin, peg-liposomal 2 mg/mL 2 mg IV DIRECTED 01/29/23 05/30/24 History intravenous suspension (Doxil) albuterol sulfate 90 mcg/actuation 2 puff inhalation Q4H PRN 07/18/23 05/30/24 Rx aerosol inhaler (Ventolin HFA) Shortness Of Breath Or Wheezing #1 inhaler fluticasone 250 mcg-salmeterol 50 1 inh inhalation BID #60 ea 07/18/23 05/30/24 Rx mcg/dose blistr powdr for inhalation (Advair Diskus) cannabidiol 1 applic topical DIRECTED PRN 01/23/24 05/30/24 History Pain (Scale Score 1-3) epinephrine 0.3 mg/0.3 mL 0.3 mg (0.3 mL) IM UD PRN ALLERGY 01/23/24 05/30/24 Rx injection, auto-injector REACTIONS #2 ea loratadine 10 mg disintegrating 10 mg PO UD 01/23/24 05/30/24 History tablet (Allergy Relief (loratadine)) naproxen sodium 220 mg tablet 220 mg PO BID PRN Pain (Scale 01/23/24 05/30/24 History (Flanax (naproxen)) Score 1-3) olopatadine 0.7 % eye drops 1 drp ophthalmic (eye) DAILY PRN 01/23/24 05/30/24 History (Pataday Once Daily Relief) Dry Eyes selenium 200 mcg capsule 200 mcg PO Q OTHER DAY 01/23/24 05/30/24 History vit C 180 mg-D3 10 mcg-zinc 5.5 1 cap PO DIRECTED PRN takes 01/23/24 05/30/24 History yu-khvxwe-ihhkrhf-tadeo-herb during cold & flu season capsule (Immune Support (vit c, d and zinc)) vitamin E (dl, acetate) 180 mg 180 mg PO Q OTHER DAY 01/23/24 05/30/24 History (400 unit) capsule zinc gluconate 25 mg tablet 50 mg PO DAILY 01/23/24 05/30/24 History albuterol sulfate 2.5 mg/3 mL 2.5 mg (3 mL) inhalation Q4H PRN 05/05/24 05/30/24 Rx (0.083 %) solution for nebulization Wheezing #180 mL pregabalin 75 mg capsule (Lyrica) 75 mg PO UD 05/13/24 05/30/24 History Turmeric Curcumin 1,500 mg PO DAILY 05/30/24 05/30/24 History acyclovir 400 mg tablet 400 mg PO BID 05/30/24 05/30/24 History cholecalciferol (vitamin D3) 125 125 mcg PO UD 05/30/24 05/30/24 History mcg (5,000 unit) tablet (Vitamin D3) cyclobenzaprine 5 mg tablet 5 mg PO TID PRN Muscle Spasm 05/30/24 05/30/24 History dexamethasone 4 mg tablet 4 mg PO UD 05/30/24 05/30/24 History duloxetine 30 mg capsule,delayed 30 mg PO QAM 05/30/24 05/30/24 History release duloxetine 60 mg capsule,delayed 60 mg PO HS 05/30/24 05/30/24 History release estradiol 0.01% (0.1 mg/gram) 1 g vaginal UD 05/30/24 05/30/24 History vaginal cream hydrocodone 5 mg-acetaminophen 325 1 tab PO .EVERY 4-6 HOURS PRN 05/30/24 05/30/24 History mg tablet MOD-SEVERE PAIN lysine HCl 1,000 mg tablet 1,000 mg PO DAILY 05/30/24 05/30/24 History prednisone 50 mg tablet 50 mg PO UD 05/30/24 05/30/24 History prednisone 50 mg tablet 50 mg PO UD PRN FOR CT 05/30/24 05/30/24 History zinc gluconate 50 mg tablet 50 mg PO Q OTHER DAY 05/30/24 05/30/24 History Patient History Medical History (Updated 05/30/24 @ 20:23 by Micaela Nicole DO) Migraine without status migrainosus, not intractable History of biliary stent insertion has currently Peripheral neuropathy 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; NO RECENT ISSUES Ureter injury CONGENITAL Depression Sleep apnea NO DEVICE Asthma NO RECENT ISSUES Surgical History History of cataract surgery History of ERCP EGD/EUS/ERCP= 06/12/18= GRADE VIEW 3, MAC 3.0, ETT 7.0 AT [facility] History of ureter repair 30+ YEARS AGO History of total abdominal hysterectomy and bilateral salpingo-oophorectomy History of laparoscopy History of breast biopsy History of tooth extraction History of tonsillectomy History of vascular access device A-PORT (LEFT CHEST) Family History Mother Skin cancer Father Lung cancer Social History Smoking Status: Never smoker Second Hand Exposure: No; Do You Dip or Chew Tobacco: No; Hx Alcohol Use: Yes Alcohol type: wine and hard liquor Hx Substance Use: No Preferred Language: Turkish Communication Ability: Effective Visual Impairment: No Limitations Pre Wave Assembler Required: No Beliefs That Will Affect Care: None Current Living Situation: Spouse Feels Safe at Home: Yes Assistive Devices: Scooter/Electric Scooter and Walker Results & Data Vital Signs (Past 12 Hours) Vital Signs Temp Pulse Pulse Resp BP BP Pulse Ox 05/31/24 19:47 92 H 14 104/69 95 05/31/24 19:47 36.4 C L 92 H 14 104/69 95 O2 Del Method 05/31/24 19:47 Room Air 05/31/24 19:47 Room Air (1) Metastatic cancer Area of secondary neoplastic involvement: unspecified site Qualified Code(s): C79.9 - Secondary malignant neoplasm of unspecified site
--- NOTE | 2024-06-01 13:49 | CT Scan Report ---
CT OF THE CHEST WITHOUT IV CONTRAST CLINICAL HISTORY: Ovarian cancer. Evaluate for progression. COMPARISON STUDY: Chest radiograph May 30, 2024. Chest CT April 21, 2024. CT DOSE: 1713.61 mGy.cm TECHNIQUE: Axial images of the chest were obtained without IV contrast. Images were reviewed in the axial, sagittal, and coronal planes. IV contrast was not administered for this examination. Automat ed exposure control was utilized for the study. A dose lowering technique was utilized adhering to t he principles of ALARA. FINDINGS: A left subclavian Zvuzrq-k-Nsll is in place. Dilatation of the ascending aorta measuring 4 .3 cm is unchanged. Circumferential esophageal wall thickening is noted. There is reflux of oral cont rast. There is no pneumothorax. Xxxyw-qh-tagxlanr bilateral pleural effusions have increased in size since CT of April 21, 2024. Extensive irregular nodular densities within the right lower lobe have s lightly progressed. Irregular nodular densities throughout the remainder of the lungs with interlobul ar septal thickening have also mildly progressed. Right lower lobe volume loss is again noted. There are no suspicious osseous lesions within the bony thorax. Multiple healing left-sided rib fractures a re present. Extensive liver metastases have mildly progressed since CT of April 21, 2024. These are better depicted on the abdominal CT which will be reported separately. Abdominal ascites has increase d. There is no pericardial effusion. A mildly enlarged prevascular lymph node measures 1.4 x 0.8 cm. This is unchanged. IMPRESSION: 1. Mild progression of extensive irregular nodular opacities throughout the lungs, most pronounced wi thin the right lower lobe with associated nodular interlobular septal thickening. 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 2. Mild increase in size of okkue-yh-pihbpvxt bilateral pleural effusions which may be malignant. 3. Reflux of oral contrast within dilated esophagus and esophageal wall thickening which may reflect esophagitis. 4. Mild progression of extensive hepatic metastases and increase in upper abdominal ascites. ACT 112: Negative or not required by law. Electronically signed by: Jeff De La Torre M.D. 06/01/2024 1:47 PM
--- NOTE | 2024-06-01 13:57 | CT Scan Report ---
CT OF THE ABDOMEN AND PELVIS WITH ORAL CONTRAST CLINICAL HISTORY: Ovarian cancer, concern for disease progression. COMPARISON STUDY: MRCP June 11, 2018. PET/CT August 13, 2017. Chest CT April 21, 2024. CT of t he abdomen and pelvis June 29, 2021. TECHNIQUE: Axial images of the abdomen and pelvis were obtained without IV contrast. Oral contrast wa s administered. Automated exposure control was utilized for the study. A dose lowering technique was utilized adhering to the principles of ALARA. FINDINGS: Please note that the chest CT will be reported separately. The esophagus is dilated with re flux of oral contrast. There is distal esophageal wall thickening. Moderate to large volume ascites i s present. There is no pneumatosis, free air or portal venous gas. Extensive hepatic metastases have mildly progressed since chest CT of April 21, 2024. These are new since earlier CT of June 29. There is no biliary or pancreatic ductal dilatation. There is no hydronephrosis. There is no evid ence for a bowel obstruction. Uterus and ovaries are surgically absent. Evidence for a retroperitonea l lymph node dissection. There are mildly enlarged mesenteric lymph nodes. No fractures or suspicious lesions within the visualized skeletal structures are present. Body wall edema is present. IMPRESSION: 1. Extensive hepatic metastases which have mildly progressed since chest CT of April 21, 2024. 2. Moderate to large volume ascites. Anasarca. 3. Increase in size of ufstl-rp-japtorxs bilateral pleural effusions. Progression of suspected lympha ngitic carcinomatosis within the lower lungs. 4. No bowel obstruction. 5. No hydronephrosis. ACT 112: Negative or not required by law. Electronically signed by: Jeff De La Torre M.D. 06/01/2024 1:55 PM
--- NOTE | 2024-06-01 22:03 | Hospitalist Progress Note ---
Date of Service June 01, 2024 Assessment & Plan (1) Bilateral leg edema: Plan: 59yo female with history of metastatic ovarian carcinoma presenting with 3-4 days of progressive bilateral LE edema and abdominal ascites. Likely secondary to progressive liver dysfunction in setting of metastatic disease. -Observation to medical floor -Check bilateral LE doppler -Check UA for protein -Check TSH -Elevate legs will add spironolactone and continue lasix. Given that patient's abdomen has reaccumulated fluid, will consider tapping again on 06/02 (2) Ascites: Plan: Patient with 3-4 days of worsening abdominal ascites. Given her history of ovarian malignancy with liver metastasis concerning for complication of cancer - malignant ascites with carcinomatosis vs compromised liver function causing her edema and ascites. She had a diagnostic and therapeutic paracentesis performed today ultrasound guidance with 3.5 L of fluid removed. Fluid was sent to the lab for cytology. patient was administered albumin post paracentesis. monitor cardiac no history of ascites Follow-up cytology studies. Added spironolactone to Lasix 40mg po daily (3) Cough: Plan: Etiology of cough unclear - has been ongoing -Guaifenesin PRN -Continue inhalers - Albuterol PRN, Fluticasone/Vilanterol (4) Hypokalemia: Plan: K=3.1, replete -Repeat BMP in AM (5) Ovarian cancer: Plan: Patient with longstanding history of ovarian cancer, metastatic disease to the liver - presently on chemotherapy -Oncology Consultation appreciated Admission and Anticipated Discharge Date Admission Date: June 01, 2024 Subjective Patient is resting. No new complaints. Physical Exam Physical Exam: General: chronically ill appearing female, resting comfortably, NAD Skin: warm, dry, intact, no rashes or lesions HEENT: NC/AT, PERRL, EOMI, mild scleral icterus, conjunctiva without injection, external ear normal to inspection and nontender, nares patent, moist mucus membranes, dentition intact, no oropharyngeal lesions, neck supple, trachea midline, no LAD, no thyromegaly, no JVD Heart: +S1/S2, regular, no m/r/g Lungs: equal air entry bilaterally, no rales/rhonchi/wheezes Abd: +BS, soft, mild abdominal tenderness, no rebound/guarding, BandAid in place from prior paracentesis with no bleeding or drainage Ext: cool, 3+ pitting edema of bilateral LE Neuro: nonfocal, patient AA&O x 4, speech intact, no facial droop, moving all extremities on command with equal strength 5/5 Results & Data Results & Data Vital Signs (Past 12 Hours) Vital Signs Temp Pulse Resp BP Pulse Ox O2 Del Method 06/01/24 20:15 36.4 C L 98 H 16 110/76 94 Room Air 06/01/24 18:37 36.4 C L 116 H 16 114/81 96 Room Air 06/01/24 14:57 37.4 C 89 16 92/54 L 92 Room Air PG Care Time/CCT Total # of Minutes Spent Total Time Spent with Patient: Total time spent is greater than 50% in coordination of care (as documented) at patient's floor/unit and/or counseling patient: Coding Level of Care Code 83650 SUB INP/OBS CARE 2/35MIN Diagnoses Bilateral leg edema R60.0 Ascites R18.8 Cough R05.9 Hypokalemia E87.6 Ovarian cancer C56.9
[2024-06-02 08:47] LABS: Hematocrit (blood only) 35.4 % (37.0-47.0); Hemoglobin 12.3 g/dl (12.0-16.0); Mean Corpuscular Hgb Conc 34.7 g/dL (32.0-36.0); Mean Corpuscular Volume 94.9 fL (80.0-100.0); Platelet Count 320 K/uL (130-400); RDW Standard Deviation 68.5 fL (36.4-46.3); Red Blood Count 3.73 M/uL (4.20-5.40); White Blood Count 5.69 K/ul (4.8-10.8)
[2024-06-02 09:05] LABS: Albumin Level 2.5 gm/dl (3.4-5.0); BUN Creatinine Ratio 21.7 (10-20); Bilirubin,Total 2.1 mg/dl (0.2-1.0); Calcium 8.2 mg/dl (8.6-10.3); Creatinine Clr Calc Pharmacy 79.7 ml/min; Globulin 2.4 gm/dl (2.5-4.0); Potassium 3.9 mmol/L (3.5-5.1); Total Protein 4.9 gm/dl (6.0-8.3)
[2024-06-02 09:12] LABS: INR 1.1 (0.9-1.1); Prothrombin Time 12.2 Seconds (9.0-12.0)
--- NOTE | 2024-06-02 14:16 | Ultrasound Report ---
ULTRASOUND-GUIDED PARACENTESIS CLINICAL HISTORY: Ascites PROCEDURE: Procedure and risks were explained. Informed consent was obtained. A final timeout was com pleted. The abdomen was prepped and draped in sterile fashion. 1% lidocaine was utilized for skin ane sthesia. Utilizing ultrasound guidance, a 5 Hebrew safety centesis catheter was advanced into the left lower q uadrant pocket of ascites. Ultrasound images were obtained. A total of 3.4 L of ascites fluid was rem rimma and discarded. The catheter was removed and Band-Aid applied. The patient tolerated the procedur e well. Vital signs will be monitored postprocedure. IMPRESSION: Ultrasound-guided paracentesis as above. Performed, dictated, and signed by Elder Owens PA-C; to be co-signed by Dr. George Rivers. Electronically signed by: George Rivers M.D. 06/02/2024 5:40 PM
[2024-06-02] MEDS: LACTULOSE SYRUP 20 GM/30 ML UDC PO SCH (14:41)
[2024-06-02 15:21] VITALS: BP 100/70; PULSE 107; RESP 16
[2024-06-02 16:09] VITALS: TEMP 97.7; O2SAT 92
--- NOTE | 2024-06-06 09:41 | Discharge Summary ---
Discharge Summary Date of Service June 02, 2024 Principal Dx & Hospital Course #1 = Principal Diagnosis (1) Bilateral leg edema: 59yo female with history of metastatic ovarian carcinoma presenting with 3-4 days of progressive bilateral LE edema and abdominal ascites. Likely secondary to progressive liver dysfunction in setting of metastatic disease. added spironolactone and continue lasix. Given that patient's abdomen has reaccumulated fluid, tapped again on 06/02. Patient feeling better, jovani followup with oncology as an outpatient. (2) Ascites: Patient with 3-4 days of worsening abdominal ascites. Given her history of ovarian malignancy with liver metastasis concerning for complication of cancer - malignant ascites with carcinomatosis vs compromised liver function causing her edema and ascites. She had a diagnostic and therapeutic paracentesis performed today ultrasound guidance with 3.5 L of fluid removed. Fluid was sent to the lab for cytology. patient was administered albumin post paracentesis. monitor cardiac no history of ascites Follow-up cytology studies. Added spironolactone to Lasix 40mg po daily (3) Cough: Etiology of cough unclear - has been ongoing -Guaifenesin PRN -Continue inhalers - Albuterol PRN, Fluticasone/Vilanterol (4) Hypokalemia: K=3.1, replete (5) Ovarian cancer: Patient with longstanding history of ovarian cancer, metastatic disease to the liver - presently on chemotherapy -Oncology Consultation appreciated Admission HPI Per Admitting Provider Miracle Pal is a 59yo female with metastatic ovarian carcinoma presenting with worsening bilateral LE edema and abdominal distention. Patient was initially diagnosed with ovarian carcinoma in 2007. Since then she has undergone CL/BSO, multiple combinations of chemotherapy as well as radiation therapy. Most recently patient was found to have disease progression in the liver on an image 08/31/23. She completed 6 cycles of Carboplatin/Doxil. Repeat imaging with stable metastatic lesions as well as loculated fluid in the LUQ. She is currently receiving maintenance Doxil Avastin. She follows with Oncology locally as well as with [facility] in [place]. [facility] for her regularly scheduled IVF infusion which she receives on her off week from chemotherapy. She pointed out her progressive bilateral LE edema over the last 3-4 days as well as her significant abdominal distention. She had an ultrasound guided paracentesis performed with 3.5L of ascitic fluid removed. Fluid was sent to the lab for assessment. Patient additionally complaining of ongoing cough with post-tussive vomiting. She was diagnosed with PNA appx 1 month ago and has completed treatment for this but has had a cough ever since. Patient was seen by her Oncologist and referred to the ER for continued workup of her bilateral LE edema. In the ER patient is afebrile, HD stable ER Course: Albumin 25gm NSS x 1L Discharge Exam General: chronically ill appearing female, resting comfortably, NAD Skin: warm, dry, intact, no rashes or lesions HEENT: NC/AT, PERRL, EOMI, mild scleral icterus, conjunctiva without injection, external ear normal to inspection and nontender, nares patent, moist mucus membranes, dentition intact, no oropharyngeal lesions, neck supple, trachea midline, no LAD, no thyromegaly, no JVD Heart: +S1/S2, regular, no m/r/g Lungs: equal air entry bilaterally, no rales/rhonchi/wheezes Abd: +BS, soft, mild abdominal tenderness, no rebound/guarding, BandAid in place from prior paracentesis with no bleeding or drainage Ext: cool, 3+ pitting edema of bilateral LE Neuro: nonfocal, patient AA&O x 4, speech intact, no facial droop, moving all extremities on command with equal strength 5/5 Discharge Plan Discharge Items Patient Disposition: Home - Home Health Services Reason For Visit: EDEMA, ASCITES Discharge Diagnosis: ascities Activity: Resume your previous activity Non-emergency contact: Primary Care Provider Call non-emergency contact if: you have any medication questions Follow-up/Referrals: Pk Whitney MD [Primary Care Provider] - 06/11/24 3:00 pm Addtl Attending Provider Instructions: Recommend followup with your Oncologist Dr. Bailey as well as followup with your PCP. You were found to have ascites. This is a condition where fluid leak out in your abdominal space. We ordered labwork to better understand why this is occurring, but they have not been finalized yet. We will treat you with 2 diuretics that will try to keep this fluid at bay. You may however require more taps to drain this fluid in the future to keep you comfortable. Pending Studies at Discharge: No Stand-Alone Forms: [facility] [employer], Smoking Cessation Medications and DC Order Prescriptions: New furosemide 40 mg Tablet 40 mg PO QAM Qty: 30 0RF spironolactone 100 mg Tablet 100 mg PO QAM Qty: 30 0RF Continued ondansetron 8 mg Tablet,Disintegrating 8 mg PO TID PRN (Reason: Nausea) Qty: 0 diphenhydramine HCl 25 mg Tablet 25 - 50 mg PO Q4H PRN (Reason: Allergic Reaction) Qty: 0 Rx Instructions: take [address] SCAN TOO magnesium 250 mg Tablet 250 mg PO UD Qty: 0 Rx Instructions: takes daily but during Chemo takes bid albuterol sulfate 2.5 mg /3 mL (0.083 %) solution for nebulization 2.5 mg inhalation Q4H PRN (Reason: Wheezing) Qty: 180 11RF doxorubicin, peg-liposomal [Doxil] 2 mg/mL suspension 2 mg IV DIRECTED Rx Instructions: every 2 weeks albuterol sulfate [Ventolin HFA] 90 mcg/actuation HFA aerosol inhaler 2 puff INHALATION Q4H PRN (Reason: Shortness Of Breath Or Wheezing) Qty: 1 11RF fluticasone propion-salmeterol [Advair Diskus] 250-50 mcg/dose blister with device 1 inh INHALATION BID Qty: 60 11RF naproxen sodium [Flanax (naproxen)] 220 mg tablet 220 mg PO BID PRN (Reason: Pain (Scale Score 1-3)) selenium 200 mcg capsule 200 mcg PO Q OTHER DAY vitamin E (dl, acetate) 180 mg (400 unit) capsule 180 mg PO Q OTHER DAY zinc gluconate 25 mg tablet 50 mg PO DAILY cannabidiol 1 applic topical DIRECTED PRN (Reason: Pain (Scale Score 1-3)) Pataday Once Daily Relief 0.7 % drops 1 drp ophthalmic (eye) DAILY PRN (Reason: Dry Eyes) Rx Instructions: USES IN SPRING AND FALL loratadine [Allergy Relief (loratadine)] 10 mg tablet,disintegrating 10 mg PO UD Rx Instructions: TAKE 10MG 2 DAYS PRE-8 DAYS POST CHEMO FOR BONE AND JOINT PAIN Immune Support (vit c,d,zinc) 180 mg-10 mcg- 5.5 mg-150 mg capsule 1 cap PO DIRECTED PRN (Reason: takes during cold & flu season) epinephrine 0.3 mg/0.3 mL auto-injector 0.3 mg IM UD PRN (Reason: ALLERGY REACTIONS) Qty: 2 2RF cetirizine [Zyrtec] 10 mg tablet 10 mg PO HS prochlorperazine maleate [Compazine] 10 mg Tablet 10 mg PO .EVERY 6-8 HOURS PRN (Reason: Nausea) docusate sodium [Colace] 100 mg Capsule 100 mg PO DAILY Rx Instructions: TAKING TID DURING CHEMO WEEK (2 DAYS PRE-8 DAYS POST) NEEDED FOR PREVENTING BLOCKAGE vitamin B complex Capsule 1 cap PO QAM vitamin K2 100 mcg Capsule 100 mcg PO QAM Rx Instructions: K-2-MK-7 cyclobenzaprine 5 mg tablet 5 mg PO TID PRN (Reason: Muscle Spasm) estradiol 0.01 % (0.1 mg/gram) cream 1 g VAGINAL UD Rx Instructions: every 3 weeks duloxetine 30 mg capsule,delayed release(DR/EC) 30 mg PO QAM duloxetine 60 mg capsule,delayed release(DR/EC) 60 mg PO HS acyclovir 400 mg tablet 400 mg PO BID Rx Instructions: take 400 mg orally twice a day=take chemo week 1600 mg (2 days pre-8 days post) shingles suppression cholecalciferol (vitamin D3) [Vitamin D3] 125 mcg (5,000 unit) Tablet 125 mcg PO UD Rx Instructions: TAKE DAILY BUT DURING CHEMO TAKES BID lysine HCl 1,000 mg Tablet 1,000 mg PO DAILY Rx Instructions: TAKE 1000 MG BID (2 DAYS PRE & 8-16 DAYS POST) CHEMO FOR MOUTH SORES hydrocodone-acetaminophen 5-325 mg tablet 1 tab PO .EVERY 4-6 HOURS PRN (Reason: MOD-SEVERE PAIN) zinc gluconate 50 mg Tablet 50 mg PO Q OTHER DAY Turmeric Curcumin 1,500 mg PO DAILY prednisone 50 mg Tablet 50 mg PO UD PRN (Reason: FOR CT ) Rx Instructions: 50 MG ORALLY 13HR,7HR,1HR PRIOR TO CT prednisone 50 mg Tablet 50 mg PO UD Rx Instructions: 50 MG EVERY 6 HOUR FOR 3 DOSES PRE/POST CHEMO DEPENDING ON COCKTAIL dexamethasone 4 mg Tablet 4 mg PO UD Rx Instructions: TAKE 4 TABS DAILY (2 DAYS PRE & 3-8 DAYS POST) 5 EVENING BEFORE,MORNING OF CHEMO DEPENDING ON COCKTAIL pregabalin [Lyrica] 75 mg capsule 75 mg PO UD Rx Instructions: 75 mg PO in the AM and 150mg in the PM; Discharge Orders: Discharge Order (Routine); Ordered 06/02/24 Ordered By: Leandro Castellanos/Other Patient Handouts: ED Ascites Admission Data Admit Date/Time: 06/01/24 09:55 Attending Provider: Leandro Winters Admit Provider: Micaela Nicole Primary Care Provider: Pk Whitney Other Providers: Deborah Bailey; Darian Ledesma; [facility] Other Interventions: Discharge Summary Assessment (RN) Last Done: 06/02/24 16:17 Hospital Stay Data Consultations 05/30/24 18:12 ED Decision to Admit Stat 05/30/24 19:45 Consult Oncology Routine Diagnostic Imagining Performed 06/01/24 09:43 CT Abd and Pelvis [CT abd pelvis oral con only] Routine 06/01/24 09:45 CT chest diagnostic wo con Routine 06/02/24 08:36 IR paracentesis abd w/img US Urgent Pending Results Patient Have Any Pending Studies at Discharge: No Discharge Instructions Given to Patient (Per Discharging Provider) Recommend followup with your Oncologist Dr. Bailey as well as followup with your PCP. You were found to have ascites. This is a condition where fluid leak out in your abdominal space. We ordered labwork to better understand why this is occurring, but they have not been finalized yet. We will treat you with 2 diuretics that will try to keep this fluid at bay. You may however require more taps to drain this fluid in the future to keep you comfortable. Total Time Total Time Spent Total Time Spent (In Minutes): 32 Coding Level of Care Code 12682 INP/OBS DISCH >30 MIN Diagnoses Bilateral leg edema R60.0 Ascites R18.0 Ascites type: malignant Cough R05.9 Hypokalemia E87.6 Ovarian cancer C56.9 Laterality: unspecified laterality
== END 2024-06-02 17:20 | disposition home health service (06) | DRG 436 ==
LOC: ED 13:37 → EDINP 13:37 → SUATTDRO 19:45 → 3E 05-31 15:27

== ENCOUNTER 2024-06-05 11:45 | Inpatient (IN) ==
[2024-06-05 13:08] LABS: Albumin Globulin Ratio 0.9 (0.9-2); Albumin Level 2.4 gm/dl (3.4-5.0); BUN Creatinine Ratio 35.5 (10-20); Bilirubin Direct 2.3 mg/dl (0-0.2); Bilirubin,Total 3.8 mg/dl (0.2-1.0); Calcium 8.8 mg/dl (8.6-10.3); Creatinine Clr Calc Pharmacy 70.8 ml/min; Globulin 2.8 gm/dl (2.5-4.0); Magnesium 1.8 mg/dl (1.7-2.4); Potassium 4.7 mmol/L (3.5-5.1); Total Protein 5.2 gm/dl (6.0-8.3)
[2024-06-05 13:11] LABS: INR 1.2 (0.9-1.1)
--- NOTE | 2024-06-05 13:27 | XRay Report ---
XR chest 1V portable HISTORY: 59 years-old Female Chest pain, nonspecific COMPARISON: Chest CT 06/01/2024 TECHNIQUE: AP view of the chest FINDINGS: Cardiac silhouette is enlarged. Left subclavian Jajwdw-n-Gesv catheter distal tip projects over the r ight atrium. No pneumothorax. Perivascular congestion with reticular nodular densities again seen. La yering pleural effusions with bibasilar consolidation. IMPRESSION: 1. Cardiomegaly with pulmonary vascular congestion. 2. Reticulonodular opacities are again seen suggestive of lymphangitic carcinomatosis. Superimposed p ulmonary edema could appear similarly. 3. Layering pleural effusions with persistent right greater than left bibasilar consolidation. Findin gs appear similar to the 06/01/[address] ACT 112: Negative or not required by law. The above report was generated using voice recognition software. It may contain grammatical, syntax o r spelling errors. Electronically signed by: Simone Guillaume M.D. 06/05/2024 1:25 PM
--- NOTE | 2024-06-05 13:52 | Emergency Department Note ---
Impression & Plan Ovarian cancer, Ascites, Metastatic cancer, Carcinomatosis ED Provider Note NAME: RUDDY BAIG AGE: 59 SEX: F : 1965 ARRIVES VIA: Walk-In INFORMANT: Patient ED PROVIDER(S): Jonatan Leam MD CHIEF COMPLAINT: Weakness, shortness of breath, edema, metastatic cancer, referred. PLAN: Disposition: Admit MEDICAL DECISION MAKING: The patient is a pleasant 59-year-old woman with a past medical history of metastatic ovarian cancer with carcinomatosis who presents to the emergency department via walk-in coming by family for worsening shortness of breath, generalized weakness and edema with abdominal ascites in the setting of being admitted to this facility from 05/30-06/03 for similar symptoms. The patient had a paracentesis at the beginning of her admission and then on the day of her discharge. They report that her abdominal distention has returned though they admit it is not as bad/tense as it was when she presented on 05/30. Additionally, they note she has continued to have a mild cough with thin clear productive sputum which is also improved from prior. They report that they were referred to the emergency department for admission by their oncology office. On evaluation the patient is acute on chronically ill-appearing but not distressed, afebrile with heart in the 100s and vital signs otherwise stable. O2 saturation is in the low 90s on room air. EKG without overt acute ischemia. Chest x-ray demonstrates vascular congestion as well as reticulonodular opacities suggestive of lymphangitic carcinomatosis as well as layering pleural effusions right greater than left. CT of the chest and pelvis were performed for further reassessment of the patient's progression and symptoms and demonstrates small to moderate bilateral pleural effusions and again further characterizes nodular densities. Extensive hepatic metastases and moderate to large abdominal pelvic ascites which appears increased from prior CT is described. Patient and family agree with plan for admission for further management. Case was discussed with Elder Owens PA-C, interventional radiology and they will be able to perform paracentesis tomorrow given the patient does not exhibit acute severity of symptoms to necessitate drainage immediately. Case was discussed with ROWDY Kilpatrick PAC, with ROWDY Means hospitalist who will evaluate the patient for admission. Further management per admitting team. Triage Nursing notes reviewed and agree them. Prior/external medical records reviewed Vital Signs: reviewed Differential diagnosis: Infection, dehydration, metabolic abnormality, hypo/hyperglycemia, electrolyte disturbance, anemia, hypoxia, cardiac sources, intracerebral event, toxicologic, neurologic, as well as other pathologies. ER treatment provided: See below. Diagnostics interpreted by me: ECG: Normal sinus rhythm, 99 bpm, no ectopy, no overt ST elevation or depression, QTc 418, QRS 76. Cardiac Monitoring: An order for continuous cardiac monitoring was placed and demonstrated Normal sinus rhythm, 99 bpm, no ectopy. Laboratory studies: See below Imaging studies: See below Consultation(s): Elder Owens PA-C, interventional radiology. Case was discussed with Rhys Hooker, [facility] PAC, with Dr. Means, [facility] hospitalist who will evaluate the patient for admission. HPI: The patient is a pleasant 59-year-old woman with a past medical history of metastatic ovarian cancer with carcinomatosis who presents to the emergency department via walk-in coming by family for worsening shortness of breath, generalized weakness and edema with abdominal ascites in the setting of being admitted to this facility from 05/30-06/03 for similar symptoms. The patient had a paracentesis at the beginning of her admission and then on the day of her discharge. They report that her abdominal distention has returned though they admit it is not as bad/tense as it was when she presented on 05/30. Additionally, they note she has continued to have a mild cough with thin clear productive sputum which is also improved from prior. They report that they were referred to the emergency department for admission by their oncology office. ROS: See above HPI for pertinent positives & negatives. A total of 10 systems reviewed and were otherwise negative. VITALS:See Below PHYSICAL EXAMINATION: GENERAL: Awake, alert, acute on chronically ill-appearing, in no distress HENT: Normocephalic, atraumatic. Oropharynx unremarkable. EYES: Normal conjunctiva. Sclera non-icteric. NECK: Supple. No nuchal rigidity. FROM. No JVD. RESPIRATORY: Clear to auscultation. CARDIAC: Regular rate, normal rhythm. Extremities warm and well perfused. Pulses equal. ABDOMEN: Moderate distention/ascites. Anasarca is present. Nontender. MUSCULOSKELETAL: Chest examination reveals no tenderness. The back is symmetrical on inspection without obvious abnormality. There is no CVA tenderness to palpation. No joint edema. LOWER EXTREMITIES: Calves are equal size bilaterally and non-tender. 2+ bilateral lower extremity edema. No discoloration. NEURO: No focal sensory or motor deficits noted. SKIN: No rash or jaundice noted. Jonatan Lema MD Past Med/Surg History Problem List (Updated 06/06/24 @ 01:52 by Jonatan Lema MD) Carcinomatosis (Acute) Ascites (Acute) Cough Transaminitis (Acute) Elevated lactic acid level (Acute) Bilateral leg edema (Acute) Hypokalemia Aneurysm Pneumonia Metastatic cancer (Acute) Pleural effusion (Acute) Shortness of breath (Acute) Hemoptysis (Acute) Pleural effusion, left Right peroneal nerve palsy Pulmonary nodules/lesions, multiple Cognitive dysfunction Chemotherapy-induced peripheral neuropathy Idiopathic polyneuropathy Ovarian cancer (Acute) Post herpetic neuralgia (Acute) Asthma (Acute) Common bile duct (CBD) obstruction Medical History (Updated 06/06/24 @ 01:52 by Jonatan Lema MD) Migraine without status migrainosus, not intractable History of biliary stent insertion has currently Peripheral neuropathy 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; NO RECENT ISSUES Ureter injury CONGENITAL Depression Sleep apnea NO DEVICE Asthma NO RECENT ISSUES Surgical History History of cataract surgery History of ERCP EGD/EUS/ERCP= 06/12/18= GRADE VIEW 3, MAC 3.0, ETT 7.0 AT [facility] History of ureter repair 30+ YEARS AGO History of total abdominal hysterectomy and bilateral salpingo-oophorectomy History of laparoscopy History of breast biopsy History of tooth extraction History of tonsillectomy History of vascular access device A-PORT (LEFT CHEST) Family History Mother Skin cancer Father Lung cancer Social History Smoking Status: Never smoker Second Hand Exposure: No; Do You Dip or Chew Tobacco: No; Hx Alcohol Use: Yes Alcohol type: wine and hard liquor Hx Substance Use: No Preferred Language: Libyan Communication Ability: Effective Visual Impairment: No Limitations Consultant Education Required: No Beliefs That Will Affect Care: None Current Living Situation: Spouse Feels Safe at Home: Yes Assistive Devices: Cane, Scooter/Electric Scooter and Walker Allergies Allergies Allergy/AdvReac Type Severity Reaction Status Date / Time bee venom protein (honey bee) Allergy Severe ANAPHYLAXIS Verified 05/14/24 13:42 Fish Containing Products Allergy Severe ANAPHYLAXIS Verified 05/14/24 13:42 TO SEAFOOD Iodinated Contrast Media Allergy Severe ANAPHYLAXIS Verified 05/14/24 13:42 monosodium glutamate Allergy Severe Anaphylaxis Verified 05/14/24 13:42 Penicillins Allergy Severe ANAPHYLAXIS Verified 05/14/24 13:42 shellfish derived Allergy Severe ANAPHYLAXIS Verified 05/14/24 13:42 TO SEAFOOD black walnut Allergy Intermediate SWELLING, Verified 05/14/24 13:42 HIVES AND ASTHMA ATTACK cantaloupe Allergy Intermediate Hives Verified 05/14/24 13:42 coconut Allergy Intermediate SWELLING, Verified 05/14/24 13:42 HIVES, ASTHMA ATTACK codeine Allergy Intermediate SWELLING, Verified 05/14/24 13:42 HIVES, ASTHMA ATTACK iodine Allergy Intermediate SWELLING, Verified 05/14/24 13:42 RASH, BLISTERS, BLEEDING rye grass Allergy Intermediate Swelling, Verified 05/14/24 13:42 hives, migraines tetracycline Allergy Intermediate SWELLING, Verified 05/14/24 13:42 HIVES, ASTHMA ATTACK latex Allergy Unknown SWELLING, Verified 05/14/24 13:42 BLEEDING AT SITE, BLISTERS gabapentin AdvReac Unknown Drowsy Unverified 05/14/24 13:42 Home Meds Home Medications Medication Instructions Recorded Confirmed ondansetron 8 mg disintegrating 8 mg PO TID PRN Nausea #0 tabs 03/03/14 06/05/24 tablet diphenhydramine HCl 25 mg tablet 25 - 50 mg PO Q4H PRN Allergic 03/10/14 06/05/24 Reaction #0 caps magnesium 250 mg tablet 250 mg PO UD ##0 10/05/15 06/05/24 docusate sodium 100 mg capsule 100 mg PO DAILY 08/02/18 06/05/24 (Colace) prochlorperazine maleate 10 mg 10 mg PO .EVERY 6-8 HOURS PRN 08/02/18 06/05/24 tablet (Compazine) Nausea cetirizine 10 mg tablet (Zyrtec) 10 mg PO HS 06/19/19 06/05/24 vitamin B complex 1 cap PO QAM 07/12/21 06/05/24 vitamin K2 100 mcg capsule 100 mcg PO QAM 07/12/21 06/05/24 doxorubicin, peg-liposomal 2 mg/mL 2 mg IV DIRECTED 01/29/23 06/05/24 intravenous suspension (Doxil) cannabidiol 1 applic topical DIRECTED PRN 01/23/24 06/05/24 Pain (Scale Score 1-3) loratadine 10 mg disintegrating 10 mg PO UD 01/23/24 06/05/24 tablet (Allergy Relief (loratadine)) naproxen sodium 220 mg tablet 220 mg PO BID PRN Pain (Scale 01/23/24 06/05/24 (Flanax (naproxen)) Score 1-3) olopatadine 0.7 % eye drops 1 drp ophthalmic (eye) DAILY PRN 01/23/24 06/05/24 (Pataday Once Daily Relief) Dry Eyes selenium 200 mcg capsule 200 mcg PO Q OTHER DAY 01/23/24 06/05/24 vit C 180 mg-D3 10 mcg-zinc 5.5 1 cap PO DIRECTED PRN takes 01/23/24 06/05/24 yo-smcwtn-pkolerj-tadeo-herb during cold & flu season capsule (Immune Support (vit c, d and zinc)) vitamin E (dl, acetate) 180 mg 180 mg PO Q OTHER DAY 01/23/24 06/05/24 (400 unit) capsule zinc gluconate 25 mg tablet 50 mg PO DAILY 01/23/24 06/05/24 pregabalin 75 mg capsule (Lyrica) 75 mg PO UD 05/13/24 06/05/24 Turmeric Curcumin 1,500 mg PO DAILY 05/30/24 06/05/24 acyclovir 400 mg tablet 400 mg PO BID 05/30/24 06/05/24 cholecalciferol (vitamin D3) 125 125 mcg PO UD 05/30/24 06/05/24 mcg (5,000 unit) tablet (Vitamin D3) cyclobenzaprine 5 mg tablet 5 mg PO TID PRN Muscle Spasm 05/30/24 06/05/24 dexamethasone 4 mg tablet 4 mg PO UD 05/30/24 06/05/24 duloxetine 30 mg capsule,delayed 30 mg PO QAM 05/30/24 06/05/24 release duloxetine 60 mg capsule,delayed 60 mg PO HS 05/30/24 06/05/24 release estradiol 0.01% (0.1 mg/gram) 1 g vaginal UD 05/30/24 06/05/24 vaginal cream hydrocodone 5 mg-acetaminophen 325 1 tab PO .EVERY 4-6 HOURS PRN 05/30/24 06/05/24 mg tablet MOD-SEVERE PAIN lysine HCl 1,000 mg tablet 1,000 mg PO DAILY 05/30/24 06/05/24 prednisone 50 mg tablet 50 mg PO UD 05/30/24 06/05/24 prednisone 50 mg tablet 50 mg PO UD PRN FOR CT 05/30/24 06/05/24 zinc gluconate 50 mg tablet 50 mg PO Q OTHER DAY 05/30/24 06/05/24 Previous Rx's Medication Instructions Recorded albuterol sulfate 90 mcg/actuation 2 puff inhalation Q4H PRN 07/18/23 aerosol inhaler (Ventolin HFA) Shortness Of Breath Or Wheezing #1 inhaler fluticasone 250 mcg-salmeterol 50 1 inh inhalation BID #60 ea 07/18/23 mcg/dose blistr powdr for inhalation (Advair Diskus) epinephrine 0.3 mg/0.3 mL 0.3 mg (0.3 mL) IM UD PRN ALLERGY 01/23/24 injection, auto-injector REACTIONS #2 ea albuterol sulfate 2.5 mg/3 mL 2.5 mg (3 mL) inhalation Q4H PRN 05/05/24 (0.083 %) solution for nebulization Wheezing #180 mL furosemide 40 mg tablet 40 mg PO QAM #30 tabs 06/02/24 spironolactone 100 mg tablet 100 mg PO QAM #30 tabs 06/02/24 Results & Data (ED) Vital Signs Vital Signs - 24 hr 06/05/24 12:01 06/05/24 12:12 06/05/24 12:37 Temperature 36.3 C L Temperature Source Temporal Artery Scan Pulse Rate 107 H 102 H Pulse Rate [Apical] 102 H Pulse Rhythm Regular Respiratory Rate 20 20 Respiratory Effort / Characteristics Non-Labored Spontaneous Respiratory Depth Normal Blood Pressure 108/75 Blood Pressure [Right Arm] 112/70 Blood Pressure Mean 86 Blood Pressure Mean [Right Arm] 84 Pulse Oximetry 93 95 Oxygen Delivery Method Nasal Cannula Room Air Sepsis Recent Fever Within 48 Hours No Sepsis New/Unexplained Change in Mental Status No Sepsis Action Taken by Nursing No Action Required 06/05/24 12:37 06/05/24 14:00 06/05/24 16:00 Temperature Temperature Source Pulse Rate Pulse Rate [Apical] 99 H 103 H Pulse Rhythm Respiratory Rate 22 19 Respiratory Effort / Characteristics Respiratory Depth Blood Pressure Blood Pressure [Right Arm] 120/87 117/86 Blood Pressure Mean Blood Pressure Mean [Right Arm] 98 96 Pulse Oximetry 94 96 Oxygen Delivery Method Room Air Room Air Room Air Sepsis Recent Fever Within 48 Hours Sepsis New/Unexplained Change in Mental Status Sepsis Action Taken by Nursing Laboratory Data Attestation: I reviewed the patient's lab results. 06/05/24 12:16 06/05/24 12:16 Lab Results 06/05/24 Range/Units 12:16 WBC 10.52 (4.8-10.8) K/ul RBC 3.75 L (4.20-5.40) M/uL Hgb 12.5 (12.0-16.0) g/dl Hct 34.5 L (37.0-47.0) % MCV 92.0 (80.0-100.0) fL MCH 33.3 (25.0-34.0) pg MCHC 36.2 H (32.0-36.0) g/dL RDW Std Deviation 67.4 H (36.4-46.3) fL RDW Coeff of Ebenezer 20.8 H (11.5-14.5) % Plt Count 307 (130-400) K/uL MPV 11.5 (9.4-12.4) fL Immature Gran % (Auto) 0.7 % Neut % (Auto) 66.2 % Lymph % (Auto) 5.0 % Corson % (Auto) 27.2 % Eos % (Auto) 0.4 % Baso % (Auto) 0.5 % Neut # (Auto) 6.97 H (1.40-6.50) K/uL Lymph # (Auto) 0.53 L (1.20-3.40) K/uL Corson # (Auto) 2.86 H (0.11-0.59) K/uL Eos # (Auto) 0.04 (0.00-0.50) K/uL Baso # (Auto) 0.05 (0.00-0.20) K/uL Immature Gran # (Auto) 0.07 (0.01-0.20) K/uL Polychromasia 1+ Target Cells 1+ PT 13.0 H (9.0-12.0) Seconds INR 1.2 H (0.9-1.1) Sodium 133 L (136-145) mmol/L Potassium 4.7 (3.5-5.1) mmol/L Chloride 95 L (98-107) mmol/L Carbon Dioxide 29 (21-32) mmol/L Anion Gap 9 (3-11) BUN 33 H (6-23) mg/dl Creatinine 0.93 (0.6-1.2) mg/dl Est Cr Clr Drug Dosing 70.8 ml/min eGFR 70.80 BUN/Creatinine Ratio 35.5 H (10-20) Glucose 112 H (70-99(Fasting)) mg/dl Calcium 8.8 (8.6-10.3) mg/dl Magnesium 1.8 (1.7-2.4) mg/dl Total Bilirubin 3.8 H (0.2-1.0) mg/dl Direct Bilirubin 2.3 H (0-0.2) mg/dl AST 134 H (13-39) U/L ALT 57 H (7-52) U/L Alkaline Phosphatase 530 H (34-104) U/L Troponin I High Sens 11.0 (0-14) pg/ml B-Natriuretic Peptide 36 (0-100) pg/ml Total Protein 5.2 L (6.0-8.3) gm/dl Albumin 2.4 L (3.4-5.0) gm/dl Globulin 2.8 (2.5-4.0) gm/dl Albumin/Globulin Ratio 0.9 (0.9-2) Lipase 10 L (11-82) U/L Administered Medications Cetirizine HCl (Cetirizine Hcl 10 Mg Tablet) 10 mg PO HS GUILHERME Stop: 07/05/24 21:44 Last Admin: 06/05/24 23:03 Dose: 10 mg Documented By: DN Duloxetine HCl (Duloxetine Hcl 60 Mg Cap) 60 mg PO HS GUILHERME Stop: 07/05/24 21:44 Last Admin: 06/05/24 23:03 Dose: 60 mg Documented By: SASHA Hydromorphone HCl (Hydromorphone Inj 1 Mg/Ml Syringe) 1 mg IV Q3H PRN PRN Reason: Severe Pain (7,8,9,10) on NRS Stop: 06/19/24 21:44 Last Admin: 06/05/24 23:04 Dose: 1 mg Documented By: DN Ondansetron HCl (Ondansetron Inj 2 Mg/Ml 2 Ml Vial) 4 mg IV Q6H PRN PRN Reason: Nausea And Vomiting Stop: 07/05/24 22:25 Last Admin: 06/05/24 23:04 Dose: 4 mg Documented By: DN Pregabalin (Pregabalin 150 Mg Cap) 150 mg PO HS GUILHERME Stop: 07/05/24 21:44 Last Admin: 06/05/24 23:04 Dose: 150 mg Documented By: DN Discontinued Medications Furosemide (Furosemide 40 Mg/4 Ml Vial) 40 mg IV ONE ONE Stop: 06/05/24 16:22 Last Admin: 06/05/24 16:45 Dose: 40 mg Documented By: [facility] Imaging Data Radiologist's Impression: Abdomen/Pelvis CT 06/05/24 13:38 CT OF THE ABDOMEN AND PELVIS WITHOUT CONTRAST CLINICAL HISTORY: edema, distention, metastatic CA COMPARISON STUDY: CT of the abdomen and pelvis June 01, 2024. TECHNIQUE: Axial images of the abdomen and pelvis were obtained without IV contrast. Images were reviewed in the axial, sagittal, and coronal planes. Automated exposure control was utilized for the study. A dose lowering technique was utilized adhering to the principles of ALARA. FINDINGS: Small to moderate bilateral pleural fusions are again noted. The visualized esophagus is moderately distended and fluid-filled. Dilatation of visualized portions of the ascending aorta is unchanged. Nodular interlobular septal thickening within the lower lungs is again noted, most probably within the right lower lobe with multiple mass-like densities. Innumerable hepatic metastases are similar to prior exam. Moderate to large ascites has slightly increased. There is no evidence for a bowel obstruction. No biliary or pancreatic ductal dilatation is present. Small peritoneal nodules are noted. There is no hydronephrosis. The uterus and ovaries are surgically absent. There is evidence for retroperitoneal lymph node dissection. The bladder is distended. Body wall edema is present. There are no suspicious lesions within the visualized skeletal structures. No acute fractures are identified. IMPRESSION: 1. Redemonstration of extensive hepatic metastases. 2. Moderate to large abdominal and pelvic ascites, slightly increased. The findings suggest peritoneal carcinomatosis. 3. No bowel obstruction. 4. Small to moderate bilateral pleural effusions with findings suggestive of lymphangitic carcinomatosis within the lower chest. 5. Mildly distended fluid-filled distal esophagus with esophageal wall thickening, as shown on prior exam. ACT 112: Negative or not required by law. Electronically signed by: Jeff De La Torre M.D. 06/05/2024 3:[address] 06/05/24 13:38 CT chest diagnostic wo con CT DOSE: 1884.79 mGy.cm CLINICAL HISTORY: 59 years-old Female with edema, distention, metastatic CA. Acute generalized abdominal pain with lower extremity edema TECHNIQUE: Multiaxial CT images of the chest were performed without contrast. A dose lowering technique was utilized adhering to the principles of ALARA. COMPARISON: CT abdomen and pelvis of same day, chest CT 06/01/2024, April 21, 2024. FINDINGS: Subcentimeter calcifications of the thyroid. A left subclavian Jhonec-c-Xrek is in place. Dilatation of the ascending aorta measuring 4.3 cm is unchanged. Circumferential esophageal wall thickening is noted in the esophagus is dilated, fluid and debris-filled. There is no pneumothorax. Lqiph-be-vdiqufkv bilateral pleural effusions are unchanged. Extensive irregular nodular densities within the right lower lobe again noted. Irregular nodular densities throughout the remainder of the lungs with interlobular septal thickening unchanged from 06/01/2024. Right lower lobe volume loss is again seen. There are no suspicious osseous lesions within the bony thorax. Multiple healing left-sided rib fractures are present. Extensive liver metastases appear stable. These are better depicted on the abdominal CT which will be reported separately. Abdominal ascites has increased. There is no pericardial effusion. A mildly enlarged prevascular lymph node measures 1.4 x 0.8 on image 60. This is unchanged. Unchanged 10 mm focus of the left lower lobe on image 139. IMPRESSION: 1. Unchanged appearance of the chest compared to the study obtained 06/01/2024. 2. Cardiomegaly with lymphangitic carcinomatosis and unchanged tshve-cy-tijmhnnj layering pleural effusions. Superimposed pulmonary edema would be difficult to exclude. 3. Extensive nodular consolidation of the basal right lower lobe appears stable. 4. Debris and fluid-filled dilated esophagus with circumferential wall thickening. 5. Extensive hepatic metastasis with upper abdominal ascites. Please refer to the same day CT abdomen and pelvis study for additional findings. ACT 112: Negative or not required by law. Electronically signed by: Simone Guillaume M.D. 06/05/2024 2:36 PM Discharge Plan Visit Data Chief Complaint: Swelling/Edema to Extremity Stated Complaint: ABD SWELLING AND LOWER LEGS ED Provider: Jonatan Lema Discharge Problem: Ovarian cancer, Ascites, Metastatic cancer, Carcinomatosis Patient Disposition: Admitted As Inpatient Discharge Instructions Interventions: ED Discharge Assessment Last Done: 06/05/24 21:00 Discharge Problem: Ovarian cancer Qualifiers: Laterality: unspecified laterality Qualified Code(s): C56.9 - Malignant neoplasm of unspecified ovary Ascites Qualifiers: Ascites type: malignant Qualified Code(s): R18.0 - Malignant ascites Metastatic cancer Qualifiers: Area of secondary neoplastic involvement: unspecified site Qualified Code(s): C 79.9 - Secondary malignant neoplasm of unspecified site
[2024-06-05 14:03] LABS: Hematocrit (blood only) 34.5 % (37.0-47.0); Hemoglobin 12.5 g/dl (12.0-16.0); Mean Corpuscular Hemoglobin 33.3 pg (25.0-34.0); Mean Corpuscular Hgb Conc 36.2 g/dL (32.0-36.0); Mean Platelet Volume 11.5 fL (9.4-12.4); Platelet Count 307 K/uL (130-400); RDW Coefficient of Variation 20.8 % (11.5-14.5); RDW Standard Deviation 67.4 fL (36.4-46.3); Red Blood Count 3.75 M/uL (4.20-5.40); White Blood Count 10.52 K/ul (4.8-10.8)
[2024-06-05 14:04] LABS: Basophils # (auto) 0.05 K/uL (0.00-0.20); Basophils % (auto) 0.5 %; Eosinophils # (auto) 0.04 K/uL (0.00-0.50); Eosinophils % (auto) 0.4 %; Immature Granulocytes # (auto) 0.07 K/uL (0.01-0.20); Immature Granulocytes % (auto) 0.7 %; Lymphocytes # (auto) 0.53 K/uL (1.20-3.40); Monocytes # (auto) 2.86 K/uL (0.11-0.59); Monocytes % (auto) 27.2 %; Neutrophils # (auto) 6.97 K/uL (1.40-6.50); Neutrophils % (auto) 66.2 %; Polychromasia 1+; Target Cells 1+
--- NOTE | 2024-06-05 14:20 | Electrocardiogram Report ---
Test Reason : Blood Pressure : */* mmHG Vent. Rate : 99 BPM Atrial Rate : 99 BPM P-R Int : 194 ms QRS Dur : 76 ms QT Int : 326 ms P-R-T Axes : 33 23 66 degrees QTcB Int : 418 ms Normal sinus rhythm Low voltage QRS Cannot rule out Anteroseptal infarct (cited on or before 30-May-2024) Abnormal ECG When compared with ECG of 30-May-2024 16:35, No significant change was found Confirmed by Dakota Douglass ([id number]) on 06/05/2024 2:20:10 PM Referred By: REFERRED SELF Confirmed By: Dakota Douglass
--- NOTE | 2024-06-05 14:38 | CT Scan Report ---
CT chest diagnostic wo con CT DOSE: 1884.79 mGy.cm CLINICAL HISTORY: 59 years-old Female with edema, distention, metastatic CA. Acute generalized abdom inal pain with lower extremity edema TECHNIQUE: Multiaxial CT images of the chest were performed without contrast. A dose lowering techni que was utilized adhering to the principles of ALARA. COMPARISON: CT abdomen and pelvis of same day, chest CT 06/01/2024, April 21, 2024. FINDINGS: Subcentimeter calcifications of the thyroid. A left subclavian Tommfn-x-Kqla is in place. D ilatation of the ascending aorta measuring 4.3 cm is unchanged. Circumferential esophageal wall thick ening is noted in the esophagus is dilated, fluid and debris-filled. There is no pneumothorax. Fndjn-jt-pywhqfvu bilateral pleural effusions are unchanged. Extensive irre gular nodular densities within the right lower lobe again noted. Irregular nodular densities througho ut the remainder of the lungs with interlobular septal thickening unchanged from 06/01/2024. Right low er lobe volume loss is again seen. There are no suspicious osseous lesions within the bony thorax. Mu ltiple healing left-sided rib fractures are present. Extensive liver metastases appear stable. These are better depicted on the abdominal CT which will be reported separately. Abdominal ascites has incr eased. There is no pericardial effusion. A mildly enlarged prevascular lymph node measures 1.4 x 0.8 on image 60. This is unchanged. Unchanged 10 mm focus of the left lower lobe on image 139. IMPRESSION: 1. Unchanged appearance of the chest compared to the study obtained 06/01/2024. 2. Cardiomegaly with lymphangitic carcinomatosis and unchanged oeeik-vk-qajxazrl layering pleural eff usions. Superimposed pulmonary edema would be difficult to exclude. 3. Extensive nodular consolidation of the basal right lower lobe appears stable. 4. Debris and fluid-filled dilated esophagus with circumferential wall thickening. 5. Extensive hepatic metastasis with upper abdominal ascites. Please refer to the same day CT abdomen and pelvis study for additional findings. ACT 112: Negative or not required by law. Electronically signed by: Simone Guillaume M.D. 06/05/2024 2:36 PM
--- NOTE | 2024-06-05 15:21 | CT Scan Report ---
CT OF THE ABDOMEN AND PELVIS WITHOUT CONTRAST CLINICAL HISTORY: edema, distention, metastatic CA COMPARISON STUDY: CT of the abdomen and pelvis June 01, 2024. TECHNIQUE: Axial images of the abdomen and pelvis were obtained without IV contrast. Images were revi ewed in the axial, sagittal, and coronal planes. Automated exposure control was utilized for the rach dy. A dose lowering technique was utilized adhering to the principles of ALARA. FINDINGS: Small to moderate bilateral pleural fusions are again noted. The visualized esophagus is mo derately distended and fluid-filled. Dilatation of visualized portions of the ascending aorta is unch anged. Nodular interlobular septal thickening within the lower lungs is again noted, most probably wi thin the right lower lobe with multiple mass-like densities. Innumerable hepatic metastases are simil ar to prior exam. Moderate to large ascites has slightly increased. There is no evidence for a bowel obstruction. No biliary or pancreatic ductal dilatation is present. Small peritoneal nodules are note d. There is no hydronephrosis. The uterus and ovaries are surgically absent. There is evidence for re troperitoneal lymph node dissection. The bladder is distended. Body wall edema is present. There are no suspicious lesions within the visualized skeletal structures. No acute fractures are identified. IMPRESSION: 1. Redemonstration of extensive hepatic metastases. 2. Moderate to large abdominal and pelvic ascites, slightly increased. The findings suggest peritonea l carcinomatosis. 3. No bowel obstruction. 4. Small to moderate bilateral pleural effusions with findings suggestive of lymphangitic carcinomato sis within the lower chest. 5. Mildly distended fluid-filled distal esophagus with esophageal wall thickening, as shown on prior exam. ACT 112: Negative or not required by law. Electronically signed by: Jeff De La Torre M.D. 06/05/2024 3:19 PM
--- NOTE | 2024-06-05 15:21 | History & Physical Report ---
Date of Service June 05, 2024 Assessment & Plan (1) Ascites: Plan: Worsening abdominal pain and swelling since discharge on 06/02 Hx of metastatic ovarian cancer to liver Recent paracentesis on 05/30 and 06/02 A/P CT re-demonstrated extensive hepatic metastasis and large abdominal/pelvic ascites IR ultrasound-guided paracentesis scheduled for the morning of 06/06 Lasix 40 mg p.o. --> Lasix 40mg IV [id number] Continue spironolactone A.m. CBC, CMP, PT/INR (2) Metastatic cancer: Plan: Metastatic ovarian cancer with mets to liver Follows with [facility]; last chemotherapy 3-4 weeks ago (per ) Patient and patient's are both open to palliative care discussions Palliative care consult appreciated Pain control with IV Toradol and Dilaudid as needed Continuous pulse oximetry Continue pregabalin Plan Disposition: Admit to MedSurg telemetry DNR/DNI Regular diet (1500 mL fluid restriction) VTE PPx: Teds; hold chemical DVT PPx prior to paracentesis History of Present Illness Chief Complaint: Swelling/edema Primary Care Provider: Pk Whitney MD Guicho is a 59-year-old female with PMH of metastatic ovarian cancer, chemotherapy-induced peripheral neuropathy, idiopathic polyneuropathy, postherpetic neuralgia, and asthma. She presented on 06/05 at the behest of the [facility] for increased abdominal swelling. Patient has had 2 recent paracenteses on Wednesday 05/30 and Saturday 06/02 (removed around 3.5 L each time). Recent discharge from [place], but returned today for increased abdominal pain and swelling. Her abdominal pain is located transversely in the epigastric region. She rates it 7/10 at worst, and 5/10 at best. She has been taking Percocet at home for the pain, which she does report helps. Eating alleviates the pain somewhat. She is also having bilateral pain in her legs secondary to swelling. Initially, her right leg was more swollen than the left, but now they are both equally swollen. Patient is receiving chemotherapy at the [facility] (doxorubicin) with the last chemotherapy being 3 to 4 weeks ago. She reports that she is still producing urine, and reports that she is consistent with taking her regular medications. She took her regular medicines today. However, no recent bowel movements; last bowel movement was on Sunday. Her /POA (Leobardo) is at the bedside and provides initial history. No recent injuries to the abdomen/pelvic region, however she did have a fall at home this past week. No head strike. No blood thinner usage. Patient ambulates with a walker/cane at baseline. Discussed patient's worsening condition with both patient and at bedside, and they are both amenable to palliative care discussions at this time. Patient is tachycardic at 102 bpm at time of admission; vitals otherwise stable. ED course: ROS: Patient endorses new tics/twitching since Sunday, lightheadedness with movements, productive cough (clear), pleuritic CP (which patient attributes to abdominal fluid build up), abdominal fluid build up/pain, LE edema, constipation, and numbness/tingling in the right leg (neuropathy). Patient denies fever, chills, night-sweats, RAMIREZ, syncope, chest pain, SOB, nause a/vomiting, diarrhea, and changes in urinary habits. Allergies Allergy/AdvReac Type Severity Reaction Status Date / Time bee venom protein (honey bee) Allergy Severe ANAPHYLAXIS Verified 05/14/24 13:42 Fish Containing Products Allergy Severe ANAPHYLAXIS Verified 05/14/24 13:42 TO SEAFOOD Iodinated Contrast Media Allergy Severe ANAPHYLAXIS Verified 05/14/24 13:42 monosodium glutamate Allergy Severe Anaphylaxis Verified 05/14/24 13:42 Penicillins Allergy Severe ANAPHYLAXIS Verified 05/14/24 13:42 shellfish derived Allergy Severe ANAPHYLAXIS Verified 05/14/24 13:42 TO SEAFOOD black walnut Allergy Intermediate SWELLING, Verified 05/14/24 13:42 HIVES AND ASTHMA ATTACK cantaloupe Allergy Intermediate Hives Verified 05/14/24 13:42 coconut Allergy Intermediate SWELLING, Verified 05/14/24 13:42 HIVES, ASTHMA ATTACK codeine Allergy Intermediate SWELLING, Verified 05/14/24 13:42 HIVES, ASTHMA ATTACK iodine Allergy Intermediate SWELLING, Verified 05/14/24 13:42 RASH, BLISTERS, BLEEDING rye grass Allergy Intermediate Swelling, Verified 05/14/24 13:42 hives, migraines tetracycline Allergy Intermediate SWELLING, Verified 05/14/24 13:42 HIVES, ASTHMA ATTACK latex Allergy Unknown SWELLING, Verified 05/14/24 13:42 BLEEDING AT SITE, BLISTERS gabapentin AdvReac Unknown Drowsy Unverified 05/14/24 13:42 Home Medications Medication Instructions Recorded Confirmed Type ondansetron 8 mg disintegrating 8 mg PO TID PRN Nausea #0 tabs 03/03/14 06/05/24 History tablet diphenhydramine HCl 25 mg tablet 25 - 50 mg PO Q4H PRN Allergic 03/10/14 06/05/24 History Reaction #0 caps magnesium 250 mg tablet 250 mg PO UD ##0 10/05/15 06/05/24 History docusate sodium 100 mg capsule 100 mg PO DAILY 08/02/18 06/05/24 History (Colace) prochlorperazine maleate 10 mg 10 mg PO .EVERY 6-8 HOURS PRN 08/02/18 06/05/24 History tablet (Compazine) Nausea cetirizine 10 mg tablet (Zyrtec) 10 mg PO HS 06/19/19 06/05/24 History vitamin B complex 1 cap PO QAM 07/12/21 06/05/24 History vitamin K2 100 mcg capsule 100 mcg PO QAM 07/12/21 06/05/24 History doxorubicin, peg-liposomal 2 mg/mL 2 mg IV DIRECTED 01/29/23 06/05/24 History intravenous suspension (Doxil) albuterol sulfate 90 mcg/actuation 2 puff inhalation Q4H PRN 07/18/23 06/05/24 Rx aerosol inhaler (Ventolin HFA) Shortness Of Breath Or Wheezing #1 inhaler fluticasone 250 mcg-salmeterol 50 1 inh inhalation BID #60 ea 07/18/23 06/05/24 Rx mcg/dose blistr powdr for inhalation (Advair Diskus) cannabidiol 1 applic topical DIRECTED PRN 01/23/24 06/05/24 History Pain (Scale Score 1-3) epinephrine 0.3 mg/0.3 mL 0.3 mg (0.3 mL) IM UD PRN ALLERGY 01/23/24 06/05/24 Rx injection, auto-injector REACTIONS #2 ea loratadine 10 mg disintegrating 10 mg PO UD 01/23/24 06/05/24 History tablet (Allergy Relief (loratadine)) naproxen sodium 220 mg tablet 220 mg PO BID PRN Pain (Scale 01/23/24 06/05/24 History (Flanax (naproxen)) Score 1-3) olopatadine 0.7 % eye drops 1 drp ophthalmic (eye) DAILY PRN 01/23/24 06/05/24 History (Pataday Once Daily Relief) Dry Eyes selenium 200 mcg capsule 200 mcg PO Q OTHER DAY 01/23/24 06/05/24 History vit C 180 mg-D3 10 mcg-zinc 5.5 1 cap PO DIRECTED PRN takes 01/23/24 06/05/24 History [id number]-wsiway-varhmkw-tadeo-herb during cold & flu season capsule (Immune Support (vit c, d and zinc)) vitamin E (dl, acetate) 180 mg 180 mg PO Q OTHER DAY 01/23/24 06/05/24 History (400 unit) capsule zinc gluconate 25 mg tablet 50 mg PO DAILY 01/23/24 06/05/24 History albuterol sulfate 2.5 mg/3 mL 2.5 mg (3 mL) inhalation Q4H PRN 05/05/24 06/05/24 Rx (0.083 %) solution for nebulization Wheezing #180 mL pregabalin 75 mg capsule (Lyrica) 75 mg PO UD 05/13/24 06/05/24 History Turmeric Curcumin 1,500 mg PO DAILY 05/30/24 06/05/24 History acyclovir 400 mg tablet 400 mg PO BID 05/30/24 06/05/24 History cholecalciferol (vitamin D3) 125 125 mcg PO UD 05/30/24 06/05/24 History mcg (5,000 unit) tablet (Vitamin D3) cyclobenzaprine 5 mg tablet 5 mg PO TID PRN Muscle Spasm 05/30/24 06/05/24 History dexamethasone 4 mg tablet 4 mg PO UD 05/30/24 06/05/24 History duloxetine 30 mg capsule,delayed 30 mg PO QAM 05/30/24 06/05/24 History release duloxetine 60 mg capsule,delayed 60 mg PO HS 05/30/24 06/05/24 History release estradiol 0.01% (0.1 mg/gram) 1 g vaginal UD 05/30/24 06/05/24 History vaginal cream hydrocodone 5 mg-acetaminophen 325 1 tab PO .EVERY 4-6 HOURS PRN 05/30/24 06/05/24 History mg tablet MOD-SEVERE PAIN lysine HCl 1,000 mg tablet 1,000 mg PO DAILY 05/30/24 06/05/24 History prednisone 50 mg tablet 50 mg PO UD 05/30/24 06/05/24 History prednisone 50 mg tablet 50 mg PO UD PRN FOR CT 05/30/24 06/05/24 History zinc gluconate 50 mg tablet 50 mg PO Q OTHER DAY 05/30/24 06/05/24 History furosemide 40 mg tablet 40 mg PO QAM #30 tabs 06/02/24 06/05/24 Rx spironolactone 100 mg tablet 100 mg PO QAM #30 tabs 06/02/24 06/05/24 Rx Past Med/Surg History Problem List (Updated 05/30/24 @ 20:23 by Micaela Nicole DO) Ascites Cough Transaminitis (Acute) Elevated lactic acid level (Acute) Bilateral leg edema (Acute) Hypokalemia Aneurysm Pneumonia Metastatic cancer (Acute) Pleural effusion (Acute) Shortness of breath (Acute) Hemoptysis (Acute) Pleural effusion, left Right peroneal nerve palsy Pulmonary nodules/lesions, multiple Cognitive dysfunction Chemotherapy-induced peripheral neuropathy Idiopathic polyneuropathy Ovarian cancer (Acute) Post herpetic neuralgia (Acute) Asthma (Acute) Common bile duct (CBD) obstruction Medical History (Updated 05/30/24 @ 20:23 by Micaela Nicole DO) Migraine without status migrainosus, not intractable History of biliary stent insertion has currently Peripheral neuropathy 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; NO RECENT ISSUES Ureter injury CONGENITAL Depression Sleep apnea NO DEVICE Asthma NO RECENT ISSUES Surgical History History of cataract surgery History of ERCP EGD/EUS/ERCP= 06/12/18= GRADE VIEW 3, MAC 3.0, ETT 7.0 AT [facility] History of ureter repair 30+ YEARS AGO History of total abdominal hysterectomy and bilateral salpingo-oophorectomy History of laparoscopy History of breast biopsy History of tooth extraction History of tonsillectomy History of vascular access device A-PORT (LEFT CHEST) Family History Mother Skin cancer Father Lung cancer Social History Smoking Status: Never smoker Second Hand Exposure: No; Do You Dip or Chew Tobacco: No; Hx Alcohol Use: Yes Alcohol type: wine and hard liquor Hx Substance Use: No Preferred Language: Telugu Communication Ability: Effective Visual Impairment: No Limitations [employer] Machined Parts Required: No Beliefs That Will Affect Care: None Current Living Situation: Spouse Feels Safe at Home: Yes Assistive Devices: Cane, Scooter/Electric Scooter and Walker Review of Systems Review of Systems: See HPI above Physical Exam Physical Exam: General: no acute distress; lethargic; cachectic; non-toxic appearing; frail appearing; cooperative; SpO2 94% on RA HEENT: normocephalic, atraumatic; no scleral icterus; PERRLA; vision and hearing grossly intact Neck: supple; no lymphadenopathy; trachea midline Skin: Mild jaundice; warm, dry without signs of tenting; no cyanosis; no rashes, bruising, lesions, or erythema noted CV: chest wall NTP; RR, mildly tachycardic at 100 bpm; S1/S2 normal; no murmurs/rubs/gallops; pulses intact and symmetric at radial, DP, and PT Lungs: no acute respiratory distress; symmetrical chest wall expansion; clear breath sounds across all lung hill w/o adventitious sounds; no wheezing ABD: Soft, abdomen is mildly TTP in the upper quadrants bilaterally; significant ascites; BS present; no rebound/guarding; no rashes or bruising on the abdomen or flanks bilaterally MSK: Notable tics/fasciculations mainly in the hands; +3 pitting edema extending standing from the dorsal aspect of the feet bilaterally up into the thighs, nonerythematous Neuro: A&Ox3; flat mood and affect; fluent speech; no focal deficits; she reports that she does not have sensation intact in the lower extremities bi laterally Results & Data Results & Data Vital Signs (Past 12 Hours) Vital Signs Temp Pulse Pulse Resp BP BP Pulse Ox 06/05/24 14:00 99 H 22 120/87 94 06/05/24 12:37 06/05/24 12:37 102 H 20 112/70 95 06/05/24 12:01 36.3 C L 107 H 20 108/75 93 O2 Del Method 06/05/24 14:00 Room Air 06/05/24 12:37 Room Air 06/05/24 12:37 Room Air 06/05/24 12:01 Nasal Cannula Laboratory Results Abnormal lab results 06/05/24 Range/Units 12:16 RBC 3.75 L (4.20-5.40) M/uL Hct 34.5 L (37.0-47.0) % MCHC 36.2 H (32.0-36.0) g/dL RDW Std Deviation 67.4 H (36.4-46.3) fL RDW Coeff of Ebenezer 20.8 H (11.5-14.5) % Neut # (Auto) 6.97 H (1.40-6.50) K/uL Lymph # (Auto) 0.53 L (1.20-3.40) K/uL [place] # (Auto) 2.86 H (0.11-0.59) K/uL PT 13.0 H (9.0-12.0) Seconds INR 1.2 H (0.9-1.1) Sodium 133 L (136-145) mmol/L Chloride 95 L (98-107) mmol/L BUN 33 H (6-23) mg/dl BUN/Creatinine Ratio 35.5 H (10-20) Glucose 112 H (70-99(Fasting)) mg/dl Total Bilirubin 3.8 H (0.2-1.0) mg/dl Direct Bilirubin 2.3 H (0-0.2) mg/dl AST 134 H (13-39) U/L ALT 57 H (7-52) U/L Alkaline Phosphatase 530 H (34-104) U/L Total Protein 5.2 L (6.0-8.3) gm/dl Albumin 2.4 L (3.4-5.0) gm/dl Lipase 10 L (11-82) U/L Diagnostic Findings Chest X-Ray 06/05/24 12:32 XR chest 1V portable HISTORY: 59 years-old Female Chest pain, nonspecific COMPARISON: Chest CT 06/01/2024 TECHNIQUE: AP view of the chest FINDINGS: Cardiac silhouette is enlarged. Left subclavian Xmggwx-t-[id number] catheter distal tip projects over the right atrium. No pneumothorax. Perivascular congestion with reticular nodular densities again seen. Layering pleural effusions with bibasilar consolidation. IMPRESSION: 1. Cardiomegaly with pulmonary vascular congestion. 2. Reticulonodular opacities are again seen suggestive of lymphangitic carcinomatosis. Superimposed pulmonary edema could appear similarly. 3. Layering pleural effusions with persistent right greater than left bibasilar consolidation. Findings appear similar to the 06/01/[address] ACT 112: Negative or not required by law. The above report was generated using voice recognition software. It may contain grammatical, syntax or spelling errors. Electronically signed by: Simone Guillaume M.D. 06/05/2024 1:25 PM Abdomen/Pelvis CT 06/05/24 13:38 CT OF THE ABDOMEN AND PELVIS WITHOUT CONTRAST CLINICAL HISTORY: edema, distention, metastatic CA COMPARISON STUDY: CT of the abdomen and pelvis June 01, 2024. TECHNIQUE: Axial images of the abdomen and pelvis were obtained without IV co ntrast. Images were reviewed in the axial, sagittal, and coronal planes. Automated exposure control was utilized for the study. A dose lowering technique was utilized adhering to the principles of ALARA. FINDINGS: Small to moderate bilateral pleural fusions are again noted. The visualized esophagus is moderately distended and fluid-filled. Dilatation of visualized portions of the ascending aorta is unchanged. Nodular interlobular septal thickening within the lower lungs is again noted, most probably within the right lower lobe with multiple mass-like densities. Innumerable hepatic meta stases are similar to prior exam. Moderate to large ascites has slightly increased. There is no evidence for a bowel obstruction. No biliary or pancreatic ductal dilatation is present. Small peritoneal nodules are noted. There is no hydronephrosis. The uterus and ovaries are surgically absent. There is evidence for retroperitoneal lymph node dissection. The bladder is distended. Body wall edema is present. There are no suspicious lesions within the visualized skeletal structures. No acute fractures are identified. IMPRESSION: 1. Redemonstration of extensive hepatic metastases. 2. Moderate to large abdominal and pelvic ascites, slightly increased. The findings suggest peritoneal carcinomatosis. 3. No bowel obstruction. 4. Small to moderate bilateral pleural effusions with findings suggestive of lymphangitic carcinomatosis within the lower chest. 5. Mildly distended fluid-filled distal esophagus with esophageal wall thickening, as shown on prior exam. ACT 112: Negative or not required by law. Electronically signed by: Jeff De La Torre M.D. 06/05/2024 3:[address] 06/05/24 13:38 CT chest diagnostic wo con CT DOSE: 1884.79 mGy.cm CLINICAL HISTORY: 59 years-old Female with edema, distention, metastatic CA. Acute generalized abdominal pain with lower extremity edema TECHNIQUE: Multiaxial CT images of the chest were performed without contrast. A dose lowering technique was utilized adhering to the principles of ALARA. COMPARISON: CT abdomen and pelvis of same day, chest CT 06/01/2024, April 21, 2024. FINDINGS: Subcentimeter calcifications of the thyroid. A left subclavian Drbvbj-r-Ezel is in place. Dilatation of the ascending aorta measuring 4.3 cm is unchanged. Circumferential esophageal wall thickening is noted in the esophagus is dilated, fluid and debris-filled. There is no pneumothorax. Narrf-zo-mqnmwobr bilateral pleural effusions are unchanged. Extensive irregular nodular densities within the right lower lobe again noted. Irregular nodular densities throughout the remainder of the lungs with interlobular septal thickening unchanged from 06/01/2024. Right lower lobe volume loss is again seen. There are no suspicious osseous lesions within the bony thorax. Multiple healing left-sided rib fractures are present. Extensive liver metastases appear stable. These are better depicted on the abdominal CT which will be reported separately. Abdominal ascites has increased. There is no pericardial effusion. A mildly enlarged prevascular lymph node measures 1.4 x 0.8 on image 60. This is unchanged. Unchanged 10 mm focus of the left lower lobe on image 139. IMPRESSION: 1. Unchanged appearance of the chest compared to the study obtained 06/01/2024. 2. Cardiomegaly with lymphangitic carcinomatosis and unchanged iwqaz-id-hsdjgigr layering pleural effusions. Superimposed pulmonary edema would be difficult to exclude. 3. Extensive nodular consolidation of the basal right lower lobe appears stable. 4. Debris and fluid-filled dilated esophagus with circumferential wall thickening. 5. Extensive hepatic metastasis with upper abdominal ascites. Please refer to the same day CT abdomen and pelvis study for additional findings. ACT 112: Negative or not required by law. Electronically signed by: Simone Guillaume M.D. 06/05/2024 2:36 PM ECG Additional Comments: ECG revealed NSR at 99 bpm; QTc 418 Code Status & VTE Plan Code Status DNR/DNI (discussed with both patient and patient's /POA at bedside) VTE Prophylaxis Plan VTE Prophylaxis will be ordered: Yes Supervising Physician Co-Signing Physician Notes I have personally seen, evaluated and examined the patient. I have also personally discussed the management of the patient with the resident physician/KWABENA and I agree with the exam findings documented in the history and physical examination and the documented assessment and plan unless otherwise stated below. Brief Exam: In general this is a pleasant 69-year-old female she is alert and oriented x 3 at the time my exam she is accompanied by her at the time of my examination. We did review as discussed above advance directives does confirm with me as well that she would like to be DNR/DNI but would like all medical intervention otherwise. HEENT: Normocephalic atraumatic. Heart: Regular rate and rhythm I do not appreciate murmur. Lungs: Diminished due to poor expiratory effort but I do not appreciate adventitious sounds. Abdomen: Moderately distended. Positive ascites. Remaining abdominal exam is equivocal due to the current level of ascites. Extremities: Very significant pitting edema bilaterally. Right leg worse than left 4+ on the right 2-3+ on the left. Neurologically: The patient is alert and oriented x 3 with no focal deficit. Assessment/plan: As discussed above interventional radiology for therapeutic paracentesis tomorrow. IR abdominal tube could be considered given the patient's frequent need for paracentesis. PG Care Time/CCT Total # of Minutes Spent Total Time Spent with Patient: Total time spent is greater than 50% in coordination of care (as documented) at patient's floor/unit and/or counseling patient: C[place] [address] INT INP/OBS CARE 3/75MIN Patient Type Established Medical Decision Making High Complexity Diagnoses Ascites R18.8 Metastatic cancer C79.9 Area of secondary neoplastic involvement: unspecified site (2) Metastatic cancer Area of secondary neoplastic involvement: unspecified site Qualified Code(s): C79.9 - Secondary malignant neoplasm of unspecified site
[2024-06-05] MEDS: FUROSEMIDE 40 MG/4 ML VIAL IV ONE (16:45)
[2024-06-05 17:47] LABS: Appearance Urine Clear (Clear); Bacteria Urine Automated None Seen (None Seen); Bilirubin Urine Negative (Negative); Blood Urine Trace (Negative); Color Urine Yellow; Epithelial Cell Urine Auto 0-2 /hpf (0-2); Glucose Urine UA Negative (Negative); Ketones Urine Negative (Negative); Leukocyte Esterase Urine Negative (Negative); Nitrite Urine Negative (Negative); Protein Urine Negative (Negative); RBC Urine Automated 0-2 /hpf (0-2); Urobilinogen Urine Negative (Negative); WBC Urine Automated 0-5 /hpf (0-5); pH Urine 5.5 (4.5-7.5)
[2024-06-05] MEDS ORDERED: ALBUTEROL HFA 8 GM INHALER INH PRN (21:45)
[2024-06-05] MEDS ORDERED: KETOROLAC TROMETHAMINE 15 MG/ML VIAL IV PRN (21:45)
[2024-06-05] MEDS ORDERED: ALBUTEROL 0.083% NEBU SOLN 3 ML VIAL INH PRN (21:45)
[2024-06-05] MEDS ORDERED: diphenhydrAMINE Capsule 25 MG CAP PO PRN (21:52)
[2024-06-05] MEDS: DULoxetine HCL 60 MG CAP PO SCH (23:03)
[2024-06-05] MEDS: CETIRIZINE HCL 10 MG TABLET PO SCH (23:03)
[2024-06-05] MEDS: PREGABALIN 150 MG CAP PO SCH (23:04)
[2024-06-05] MEDS: HYDROmorphone INJ 1 MG/ML SYRINGE IV PRN (23:04)
[2024-06-05] MEDS: ONDANSETRON INJ 2 MG/ML 2 ML VIAL IV PRN (23:04)
[2024-06-06 06:14] LABS: INR 1.2 (0.9-1.1); Prothrombin Time 12.6 Seconds (9.0-12.0)
[2024-06-06 06:31] LABS: Albumin Globulin Ratio 0.9 (0.9-2); Albumin Level 2.3 gm/dl (3.4-5.0); BUN Creatinine Ratio 44.2 (10-20); Bilirubin,Total 3.9 mg/dl (0.2-1.0); Calcium 8.6 mg/dl (8.6-10.3); Creatinine Clr Calc Pharmacy 74.8 ml/min; Globulin 2.6 gm/dl (2.5-4.0); Potassium 4.5 mmol/L (3.5-5.1); Total Protein 4.9 gm/dl (6.0-8.3)
[2024-06-06] MEDS: diphenhydrAMINE Capsule 25 MG CAP PO PRN (06:43)
[2024-06-06 06:51] LABS: Hematocrit (blood only) 33.7 % (37.0-47.0); Hemoglobin 12.1 g/dl (12.0-16.0); Mean Corpuscular Hgb Conc 35.9 g/dL (32.0-36.0); Mean Corpuscular Volume 91.8 fL (80.0-100.0); Platelet Count 290 K/uL (130-400); RDW Coefficient of Variation 21.1 % (11.5-14.5); RDW Standard Deviation 68.1 fL (36.4-46.3); Red Blood Count 3.67 M/uL (4.20-5.40); White Blood Count 11.15 K/ul (4.8-10.8)
[2024-06-06 06:52] LABS: Anisocytosis Present; Basophils # (auto) 0.04 K/uL (0.00-0.20); Basophils % (auto) 0.4 %; Eosinophils # (auto) 0.04 K/uL (0.00-0.50); Eosinophils % (auto) 0.4 %; Immature Granulocytes # (auto) 0.05 K/uL (0.01-0.20); Immature Granulocytes % (auto) 0.4 %; Lymphocytes % (auto) 6.3 %; Monocytes # (auto) 2.65 K/uL (0.11-0.59); Monocytes % (auto) 23.8 %; Neutrophils # (auto) 7.67 K/uL (1.40-6.50); Neutrophils % (auto) 68.7 %; Polychromasia 2+; Target Cells 2+
[2024-06-06] MEDS: CYCLOBENZAPRINE HCL 5 MG TAB PO PRN (08:01)
[2024-06-06] MEDS: MAGNESIUM OXIDE 400 MG TAB PO SCH (08:01)
[2024-06-06] MEDS: SPIRONOLACTONE 100 MG TAB PO SCH (08:01)
[2024-06-06] MEDS: FUROSEMIDE 40 MG/4 ML VIAL IV SCH (08:02)
[2024-06-06] MEDS: FLUTICASONE/VILANTEROL 200/25MCG 14 PUFFS/INHALER INH SCH (08:02)
[2024-06-06] MEDS: DULoxetine HCL 30 MG CAP PO SCH (08:02)
[2024-06-06] MEDS: DOCUSATE SODIUM 100 MG CAP PO SCH (08:07)
[2024-06-06] MEDS: PREGABALIN 75 MG CAP PO SCH (08:07)
[2024-06-06] MEDS: HYDROmorphone INJ 0.5 MG/0.5 ML SYR IV PRN (08:08)
[2024-06-06] MEDS: ALBUMIN 25% 25 GM/100 ML VIAL IV ONE (10:35)
--- NOTE | 2024-06-06 10:38 | Hospitalist Progress Note ---
Date of Service June 06, 2024 Assessment & Plan (1) Metastatic cancer: Plan: Metastatic ovarian cancer with mets to liver, first dx in 2007, has been on numerous treatment modalities. Follows with [facility]; last chemotherapy 3-4 weeks ago. Recent admission with ascities and had paracentesis 05/30 and 06/02. Presented with ambulatory dysfunction and worsening ascites. Had repeat paracentensis 06/06 with 1.9L removed and almost no change in symptoms. Palliative care consulted --> decision made for COMPLIANCE COUNSEL (2) Comfort measures only status: Plan: Palliative following -GIP denied Prn Ativan prn Dilaudid prn Robinul Plan Disposition:continued inpatient stay updated at bedside 06/06 Admission and Anticipated Discharge Date Admission Date: June 05, 2024 Supervising Physician Co-Signing Physician Notes PA Supervision Note: I did not personally see or examine the patient today, but I verified all leal points of JUVENTINO Ge's assessment and plan with the following exceptions/additions: None Subjective Patient seen lying in bed, opens her eyes to stimuli, but falls alseep quickly after. Not able to provide a meaningful hx present at bedside - she was her "normal" sunday and sunday able to move around the house, then sunday night less mobile and sunday more fluid in her abdomen Usually not this difficult to keep awake. states "they knew this was coming, but did not think it would happen so fast" Tele - 90-100s Review of Systems Review of Systems: Unobtainable due to reduced consciousness Physical Exam Physical Exam: General: NAD, VS as above Resp: normal respiratory effort,on 2L nc CV: RRR, no murmur, Abd: normal bowel sounds, soft, non tender, non distended but seen after paracentesis. area of drainage c/d/i Extremities: Moves all extremities, no edema Neuro: A&O x3, Skin: jaundice Results & Data Results & Data Vital Signs (Past 12 Hours) Vital Signs Temp Pulse Pulse Resp BP BP Pulse Ox 06/06/24 09:58 109 H 17 105/82 93 06/06/24 09:28 107 H 18 103/73 94 06/06/24 08:07 98.1 F 103 H 17 91/68 L 97 06/06/24 08:00 06/06/24 07:00 98 H 06/06/24 02:54 97.5 F L 107 H 18 103/70 93 06/06/24 00:36 112 H 06/05/24 22:50 106 H O2 Del Method O2 Flow Rate 06/06/24 09:58 Nasal Cannula 2 06/06/24 09:28 Nasal Cannula 2 06/06/24 08:07 Nasal Cannula 2 06/06/24 08:00 Room Air 06/06/24 07:00 06/06/24 02:54 Nasal Cannula 2 06/06/24 00:36 06/05/24 22:50 Laboratory Results Cbc and chemistry reviewed Diagnostic Findings US reviewed PG Care Time/CCT Total # of Minutes Spent Total Time Spent with Patient: Total time spent is greater than 50% in coordination of care (as documented) at patient's floor/unit and/or counseling patient: Coding Level of Care Code 26497 SUB INP/OBS CARE 3/50MIN Diagnoses Metastatic cancer C79.9 Area of secondary neoplastic involvement: unspecified site Comfort measures only status Z51.5 (1) Metastatic cancer Area of secondary neoplastic involvement: unspecified site Qualified Code(s): C79.9 - Secondary malignant neoplasm of unspecified site
--- NOTE | 2024-06-06 11:33 | Ultrasound Report ---
ULTRASOUND-GUIDED PARACENTESIS CLINICAL HISTORY: Ascites PROCEDURE: Procedure and risks were explained. Informed consent was obtained. A final timeout was com pleted. The abdomen was prepped and draped in sterile fashion. 1% lidocaine was utilized for skin ane sthesia. Utilizing ultrasound guidance, a 5 Albanian safety centesis catheter was advanced into the right lower quadrant pocket of ascites. Ultrasound images were obtained. A total of 1.9 L of ascites fluid was re moved and discarded. The catheter was removed and Band-Aid applied. The patient tolerated the procedu re well. Vital signs will be monitored postprocedure. IMPRESSION: Ultrasound-guided paracentesis as above. Performed, dictated, and signed by Elder Owens PA-C; to be co-signed by Dr. Simone Guillaume. Electronically signed by: Simone Guillaume M.D. 06/06/2024 12:07 PM
--- NOTE | 2024-06-06 11:39 | Oncology Consultation ---
Date of Consultation June 06, 2024 Assessment & Plan (1) Carcinomatosis: (2) Ascites: (3) Pleural effusion: Plan I had a long conversation with patient and yesterday. Explained to them that if she does not improve clinically despite paracentesis, would recommend hospice. Patient not seen today but per discussion with hospitalist, is still not feeling better despite paracentesis today. Agree with palliative care consult. Suspect that she would not be able to tolerate systemic chemotherapy due to current performance status Thank you for this consult.Please feel free to call if you have any questions History of Present Illness Reason for Consultation: Metastatic ovarian cancer Attending Physician: Prema Rincon MD History of Present Illness 59 year old female with metastatic ovarian cancer for which she has received multiple lines of therapy and was most recently on Doxil/avastin. Patient presented to [facility] yesterday with failure to thrive, recurrent abdominal ascites,jaundice. Labs significant for transaminitis, hyperbilirubinemia. She was adviced to proceed to ER where CT CAP revealed progressive liver metastases, ascites, pleural effusion and possible lymphangitic carcinomatosis. She underwent therapeutic paracentesis today. Has had a total of 3 paracentesis over the past 1 week. Allergies Allergy/AdvReac Type Severity Reaction Status Date / Time bee venom protein (honey bee) Allergy Severe ANAPHYLAXIS Verified 05/14/24 13:42 Fish Containing Products Allergy Severe ANAPHYLAXIS Verified 05/14/24 13:42 TO SEAFOOD Iodinated Contrast Media Allergy Severe ANAPHYLAXIS Verified 05/14/24 13:42 monosodium glutamate Allergy Severe Anaphylaxis Verified 05/14/24 13:42 Penicillins Allergy Severe ANAPHYLAXIS Verified 05/14/24 13:42 shellfish derived Allergy Severe ANAPHYLAXIS Verified 05/14/24 13:42 TO SEAFOOD black walnut Allergy Intermediate SWELLING, Verified 05/14/24 13:42 HIVES AND ASTHMA ATTACK cantaloupe Allergy Intermediate Hives Verified 05/14/24 13:42 coconut Allergy Intermediate SWELLING, Verified 05/14/24 13:42 HIVES, ASTHMA ATTACK codeine Allergy Intermediate SWELLING, Verified 05/14/24 13:42 HIVES, ASTHMA ATTACK iodine Allergy Intermediate SWELLING, Verified 05/14/24 13:42 RASH, BLISTERS, BLEEDING rye grass Allergy Intermediate Swelling, Verified 05/14/24 13:42 hives, migraines tetracycline Allergy Intermediate SWELLING, Verified 05/14/24 13:42 HIVES, ASTHMA ATTACK latex Allergy Unknown SWELLING, Verified 05/14/24 13:42 BLEEDING AT SITE, BLISTERS gabapentin AdvReac Unknown Drowsy Unverified 05/14/24 13:42 Home Medications Medication Instructions Recorded Confirmed Type ondansetron 8 mg disintegrating 8 mg PO TID PRN Nausea #0 tabs 03/03/14 06/05/24 History tablet diphenhydramine HCl 25 mg tablet 25 - 50 mg PO Q4H PRN Allergic 03/10/1406/05 History Reaction #0 caps magnesium 250 mg tablet 250 mg PO UD ##0 10/05/15 06/05/24 History docusate sodium 100 mg capsule 100 mg PO DAILY 08/02/18 06/05/24 History (Colace) prochlorperazine maleate 10 mg 10 mg PO .EVERY 6-8 HOURS PRN 08/02/18 06/05/24 History tablet (Compazine) Nausea cetirizine 10 mg tablet (Zyrtec) 10 mg PO HS 06/19/19 06/05/24 History vitamin B complex 1 cap PO QAM 07/12/21 06/05/24 History vitamin K2 100 mcg capsule 100 mcg PO QAM 07/12/21 06/05/24 History doxorubicin, peg-liposomal 2 mg/mL 2 mg IV DIRECTED 01/29/23 06/05/24 History intravenous suspension (Doxil) albuterol sulfate 90 mcg/actuation 2 puff inhalation Q4H PRN 07/18/23 06/05/24 Rx aerosol inhaler (Ventolin HFA) Shortness Of Breath Or Wheezing #1 inhaler fluticasone 250 mcg-salmeterol 50 1 inh inhalation BID #60 ea 07/18/23 06/05/24 Rx mcg/dose blistr powdr for inhalation (Advair Diskus) cannabidiol 1 applic topical DIRECTED PRN 01/23/24 06/05/24 History Pain (Scale Score 1-3) epinephrine 0.3 mg/0.3 mL 0.3 mg (0.3 mL) IM UD PRN ALLERGY 01/23/24 06/05/24 Rx injection, auto-injector REACTIONS #2 ea loratadine 10 mg disintegrating 10 mg PO UD 01/23/24 06/05/24 History tablet (Allergy Relief (loratadine)) naproxen sodium 220 mg tablet 220 mg PO BID PRN Pain (Scale 01/23/24 06/05/24 History (Flanax (naproxen)) Score 1-3) olopatadine 0.7 % eye drops 1 drp ophthalmic (eye) DAILY PRN 01/23/24 06/05/24 History (Pataday Once Daily Relief) Dry Eyes selenium 200 mcg capsule 200 mcg PO Q OTHER DAY 01/23/24 06/05/24 History vit C 180 mg-D3 10 mcg-zinc 5.5 1 cap PO DIRECTED PRN takes 01/23/24 06/05/24 History me-ggjlpp-qanqpqx-tadeo-herb during cold & flu season capsule (Immune Support (vit c, d and zinc)) vitamin E (dl, acetate) 180 mg 180 mg PO Q OTHER DAY 01/23/24 06/05/24 History (400 unit) capsule zinc gluconate 25 mg tablet 50 mg PO DAILY 01/23/24 06/05/24 History albuterol sulfate 2.5 mg/3 mL 2.5 mg (3 mL) inhalation Q4H PRN 05/05/24 06/05/24 Rx (0.083 %) solution for nebulization Wheezing #180 mL pregabalin 75 mg capsule (Lyrica) 75 mg PO UD 05/13/24 06/05/24 History Turmeric Curcumin 1,500 mg PO DAILY 05/30/24 06/05/24 History acyclovir 400 mg tablet 400 mg PO BID 05/30/24 06/05/24 History cholecalciferol (vitamin D3) 125 125 mcg PO UD 05/30/24 06/05/24 History mcg (5,000 unit) tablet (Vitamin D3) cyclobenzaprine 5 mg tablet 5 mg PO TID PRN Muscle Spasm 05/30/24 06/05/24 History dexamethasone 4 mg tablet 4 mg PO UD 05/30/24 06/05/24 History duloxetine 30 mg capsule,delayed 30 mg PO QAM 05/30/24 06/05/24 History release duloxetine 60 mg capsule,delayed 60 mg PO HS 05/30/24 06/05/24 History release estradiol 0.01% (0.1 mg/gram) 1 g vaginal UD 05/30/24 06/05/24 History vaginal cream hydrocodone 5 mg-acetaminophen 325 1 tab PO .EVERY 4-6 HOURS PRN 05/30/24 06/05/24 History mg tablet MOD-SEVERE PAIN lysine HCl 1,000 mg tablet 1,000 mg PO DAILY 05/30/24 06/05/24 History prednisone 50 mg tablet 50 mg PO UD 05/30/24 06/05/24 History prednisone 50 mg tablet 50 mg PO UD PRN FOR CT 05/30/24 06/05/24 History zinc gluconate 50 mg tablet 50 mg PO Q OTHER DAY 05/30/24 06/05/24 History furosemide 40 mg tablet 40 mg PO QAM #30 tabs 06/02/24 06/05/24 Rx spironolactone 100 mg tablet 100 mg PO QAM #30 tabs 06/02/24 06/05/24 Rx Patient History Medical History (Updated 06/06/24 @ 01:52 by Jonatan Lema MD) Migraine without status migrainosus, not intractable History of biliary stent insertion has currently Peripheral neuropathy 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; NO RECENT ISSUES Ureter injury CONGENITAL Depression Sleep apnea NO DEVICE Asthma NO RECENT ISSUES Surgical History History of cataract surgery History of ERCP EGD/EUS/ERCP= 06/12/18= GRADE VIEW 3, MAC 3.0, ETT 7.0 AT [facility] History of ureter repair 30+ YEARS AGO History of total abdominal hysterectomy and bilateral salpingo-oophorectomy History of laparoscopy History of breast biopsy History of tooth extraction History of tonsillectomy History of vascular access device A-PORT (LEFT CHEST) Family History Mother Skin cancer Father Lung cancer Social History Smoking Status: Never smoker Second Hand Exposure: No; Do You Dip or Chew Tobacco: No; Hx Alcohol Use: No Hx Substance Use: No Preferred Language: Belarusian Communication Ability: Effective Visual Impairment: No Limitations Natural Science Curator Required: No Beliefs That Will Affect Care: None Current Living Situation: Spouse Other Information That Helps Us Care for You: No Feels Safe at Home: Yes Safety Concerns: Feels Safe At This Time Assistive Devices: None Results & Data Vital Signs (Past 12 Hours) Vital Signs Temp Pulse Pulse Resp BP BP Pulse Ox 06/06/24 10:58 107 H 14 102/70 94 06/06/24 10:28 108 H 16 95/70 L 94 06/06/24 09:58 109 H 17 105/82 93 06/06/24 09:28 107 H 18 103/73 94 06/06/24 08:07 36.7 C 103 H 17 91/68 L 97 06/06/24 08:00 06/06/24 07:00 98 H 06/06/24 02:54 36.4 C L 107 H 18 103/70 93 06/06/24 00:36 112 H O2 Del Method O2 Flow Rate 06/06/24 10:58 Nasal Cannula 2 06/06/24 10:28 Nasal Cannula 2 06/06/24 09:58 Nasal Cannula 2 06/06/24 09:28 Nasal Cannula 2 06/06/24 08:07 Nasal Cannula 2 06/06/24 08:00 Room Air 06/06/24 07:00 06/06/24 02:54 Nasal Cannula 2 06/06/24 00:36 (2) Ascites Ascites type: malignant Qualified Code(s): R18.0 - Malignant ascites
--- NOTE | 2024-06-06 11:42 | Palliative Care Consultation ---
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 Will roder Ativan 1mg IV q4h prn myoclonus/spasms/agitation reviewed with nursing (3) Dyspnea and respiratory abnormalities: Remains uncontrolled despite mgt to date Begin Dilaudid 0.5 ad/or 1mg IV q30min PRN for cancer pain or dyspnea met ovarian ca disease progression on multiple lines of therapy with worsening PS/FTT Moved to [facility], [facility] eval requested (4) Abdominal pain, acute, generalized: (5) Weakness generalized: (6) Discussion about advance care planning held with family member: 25min face to face ACP with at bedside He tells me Miracle Hughes and him have had numerous conversations about her wishes when things reached this point. He states they always knew this day would come and that earlier this week, when they met with home health, she told him she felt hospice is probably going to be what she needs most. He would like comfort care. We spoke about hospice as option for home dc and agreed we would see how she does through the weekend first, as she has been steadily declining this admission and may not be stable for transport. Additionally she has continued uncontrolled symptoms incl cancer pain and myoclonus, We will work to optimize mgt through the weekend We agreed to [facility] after discussing hospice (details of hospice in #6 below) AUDIOVISUAL LIBRARIAN orders written (7) Encounter for hospice care discussion: I provided education about the hospice benefit: an interdisciplinary program offered by nurses, nurses aides, social workers, chaplains and a medical assistant per diem for patients with a terminal condition and a life expectancy of less than 6 months. This is covered by Medicare at 100%/no out of pocket expense to patient and all meds/supplies needed by patient for the reason they are on hospice are paid for/covered by hospice. The goal is assure quality of life of the patient in their home setting (home, long term, inpatient hospice setting) by providing symptoms management, psychosocial and spiritual support. However, they cannot offer 24 hours care and if the family is unable to provide that care, they will have to consider personal care with out of pocket cost vs. long term placement. We discussed the goals of hospice as a patient service and the goals of care; we discussed EOL trajectories and transitions kamila the emotional impact of realizing mortality as a concrete reality from prior abstract considerations. Pt was reassured that no matter where they are along this trajectory, they are not alone - their medical team will remain by their side through their journey. Discussed the pros/cons of accepting help when especially weakened and distressed by pain-which would also help provide relief/decrease caregiver burden/strain. (8) Palliative care by specialist: Introduced Palliative Medicine and explained our role in patient's care. Patient and/or family were receptive to palliative services for goals of care discussions. Reviewed we are different from hospice, a home health nurse visiting service. (9) Carcinomatosis: (10) Ascites: Ascites type: malignant Qualified Code(s): R18.0 - Malignant ascites Plan As above AUDIOVISUAL LIBRARIAN/orders written GIP requested: multiple refractory/uncontrolled symptoms with disease progression and intensifying symptom burden that could not be managed at home. Thank you for allowing us to participate in the ongoing care of this patient. Please page with any additional concerns. Shirley Moreno DNP Director, Palliative Medicine History of Present Illness Reason for Consultation: adv met cancer Attending Physician: Prema Rincon MD History of Present Illness Guicho is a 59yo female with metastatic ovarian cancer s/p multiple lines of therapy/recent Doxil/Avastin Miracle Hughes came to [facility] earlier this week with declining PS, weakness, lethargy myoclonus and fatigue, FTT, recurrent abdominal ascites +jaundice, +transaminitis, hyperbilirubinemia. CT CAP this admission + progressive liver metastases, ascites, pleural effusion and possible lymphangitic carcinomatosis. S/p paracentesis this morning/total of 3 paracentesis over the past 1 week. She was last seen by oncology earlier this week, home health referral was placed for progressive decline and 1stvisit would have been today worsening ascites s/p para earlier this AM< not signif better, mentation unchanged. Miracle Hughes remains lethargic and minimally arousable. Eyes open to sternal rub but she quickly drifts back asleep of 30+ years at bedside, provides much of the HPI appetite declining for a few weeks declining strength, declining PS pain was increasing at home, not relieved by current meds grimacing more, resting in bed, not ambulatory, needs assistance for all ADLs increasing myoclonic activity worsened post para Allergies Allergy/AdvReac Type Severity Reaction Status Date / Time bee venom protein (honey bee) Allergy Severe ANAPHYLAXIS Verified 05/14/24 13:42 Fish Containing Products Allergy Severe ANAPHYLAXIS Verified 05/14/24 13:42 TO SEAFOOD Iodinated Contrast Media Allergy Severe ANAPHYLAXIS Verified 05/14/24 13:42 monosodium glutamate Allergy Severe Anaphylaxis Verified 05/14/24 13:42 Penicillins Allergy Severe ANAPHYLAXIS Verified 05/14/24 13:42 shellfish derived Allergy Severe ANAPHYLAXIS Verified 05/14/24 13:42 TO SEAFOOD black walnut Allergy Intermediate SWELLING, Verified 05/14/24 13:42 HIVES AND ASTHMA ATTACK cantaloupe Allergy Intermediate Hives Verified 05/14/24 13:42 coconut Allergy Intermediate SWELLING, Verified 05/14/24 13:42 HIVES, ASTHMA ATTACK codeine Allergy Intermediate SWELLING, Verified 05/14/24 13:42 HIVES, ASTHMA ATTACK iodine Allergy Intermediate SWELLING, Verified 05/14/24 13:42 RASH, BLISTERS, BLEEDING rye grass Allergy Intermediate Swelling, Verified 05/14/24 13:42 hives, migraines tetracycline Allergy Intermediate SWELLING, Verified 05/14/24 13:42 HIVES, ASTHMA ATTACK latex Allergy Unknown SWELLING, Verified 05/14/24 13:42 BLEEDING AT SITE, BLISTERS gabapentin AdvReac Unknown Drowsy Unverified 05/14/24 13:42 Home Medications Medication Instructions Recorded Confirmed Type ondansetron 8 mg disintegrating 8 mg PO TID PRN Nausea #0 tabs 03/03/14 06/05/24 History tablet diphenhydramine HCl 25 mg tablet 25 - 50 mg PO Q4H PRN Allergic 03/10/14 06/05/24 History Reaction #0 caps magnesium 250 mg tablet 250 mg PO UD ##0 10/05/15 06/05/24 History docusate sodium 100 mg capsule 100 mg PO DAILY 08/02/18 06/05/24 History (Colace) prochlorperazine maleate 10 mg 10 mg PO .EVERY 6-8 HOURS PRN 08/02/18 06/05/24 History tablet (Compazine) Nausea cetirizine 10 mg tablet (Zyrtec) 10 mg PO HS 06/19/19 06/05/24 History vitamin B complex 1 cap PO QAM 07/12/21 06/05/24 History vitamin K2 100 mcg capsule 100 mcg PO QAM 07/12/21 06/05/24 History doxorubicin, peg-liposomal 2 mg/mL 2 mg IV DIRECTED 01/29/23 06/05/24 History intravenous suspension (Doxil) albuterol sulfate 90 mcg/actuation 2 puff inhalation Q4H PRN 07/18/23 06/05/24 Rx aerosol inhaler (Ventolin HFA) Shortness Of Breath Or Wheezing #1 inhaler fluticasone 250 mcg-salmeterol 50 1 inh inhalation BID #60 ea 07/18/23 06/05/24 Rx mcg/dose blistr powdr for inhalation (Advair Diskus) cannabidiol 1 applic topical DIRECTED PRN 01/23/24 06/05/24 History Pain (Scale Score 1-3) epinephrine 0.3 mg/0.3 mL 0.3 mg (0.3 mL) IM UD PRN ALLERGY 01/23/24 06/05/24 Rx injection, auto-injector REACTIONS #2 ea loratadine 10 mg disintegrating 10 mg PO UD 01/23/24 06/05/24 History tablet (Allergy Relief (loratadine)) naproxen sodium 220 mg tablet 220 mg PO BID PRN Pain (Scale 01/23/24 06/05/24 History (Flanax (naproxen)) Score 1-3) olopatadine 0.7 % eye drops 1 drp ophthalmic (eye) DAILY PRN 01/23/24 06/05/24 History (Pataday Once Daily Relief) Dry Eyes selenium 200 mcg capsule 200 mcg PO Q OTHER DAY 01/23/24 06/05/24 History vit C 180 mg-D3 10 mcg-zinc 5.5 1 cap PO DIRECTED PRN takes 01/23/24 06/05/24 History yx-atugcg-jqhylwk-tadeo-herb during cold & flu season capsule (Immune Support (vit c, d and zinc)) vitamin E (dl, acetate) 180 mg 180 mg PO Q OTHER DAY 01/23/24 06/05/24 History (400 unit) capsule zinc gluconate 25 mg tablet 50 mg PO DAILY 01/23/24 06/05/24 History albuterol sulfate 2.5 mg/3 mL 2.5 mg (3 mL) inhalation Q4H PRN 05/05/24 06/05/24 Rx (0.083 %) solution for nebulization Wheezing #180 mL pregabalin 75 mg capsule (Lyrica) 75 mg PO UD 05/13/24 06/05/24 History Turmeric Curcumin 1,500 mg PO DAILY 05/30/24 06/05/24 History acyclovir 400 mg tablet 400 mg PO BID 05/30/24 06/05/24 History cholecalciferol (vitamin D3) 125 125 mcg PO UD 05/30/24 06/05/24 History mcg (5,000 unit) tablet (Vitamin D3) cyclobenzaprine 5 mg tablet 5 mg PO TID PRN Muscle Spasm 05/30/24 06/05/24 History dexamethasone 4 mg tablet 4 mg PO UD 05/30/24 06/05/24 History duloxetine 30 mg capsule,delayed 30 mg PO QAM 05/30/24 06/05/24 History release duloxetine 60 mg capsule,delayed 60 mg PO HS 05/30/24 06/05/24 History release estradiol 0.01% (0.1 mg/gram) 1 g vaginal UD 05/30/24 06/05/24 History vaginal cream hydrocodone 5 mg-acetaminophen 325 1 tab PO .EVERY 4-6 HOURS PRN 05/30/24 06/05/24 History mg tablet MOD-SEVERE PAIN lysine HCl 1,000 mg tablet 1,000 mg PO DAILY 05/30/24 06/05/24 History prednisone 50 mg tablet 50 mg PO UD 05/30/24 06/05/24 History prednisone 50 mg tablet 50 mg PO UD PRN FOR CT 05/30/24 06/05/24 History zinc gluconate 50 mg tablet 50 mg PO Q OTHER DAY 05/30/24 06/05/24 History furosemide 40 mg tablet 40 mg PO QAM #30 tabs 06/02/24 06/05/24 Rx spironolactone 100 mg tablet 100 mg PO QAM #30 tabs 06/02/24 06/05/24 Rx Patient History Medical History (Updated 06/06/24 @ 12:04 by Tamra Moreno DNP) Migraine without status migrainosus, not intractable History of biliary stent insertion has currently Peripheral neuropathy 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; NO RECENT ISSUES Ureter injury CONGENITAL Depression Sleep apnea NO DEVICE Asthma NO RECENT ISSUES Surgical History History of cataract surgery History of ERCP EGD/EUS/ERCP= 06/12/18= GRADE VIEW 3, MAC 3.0, ETT 7.0 AT [facility] History of ureter repair 30+ YEARS AGO History of total abdominal hysterectomy and bilateral salpingo-oophorectomy History of laparoscopy History of breast biopsy History of tooth extraction History of tonsillectomy History of vascular access device A-PORT (LEFT CHEST) Family History Mother Skin cancer Father Lung cancer Social History Smoking Status: Never smoker Second Hand Exposure: No; Do You Dip or Chew Tobacco: No; Hx Alcohol Use: No Hx Substance Use: No Preferred Language: Bulgarian Communication Ability: Effective Visual Impairment: No Limitations Linux Consultant Required: No Beliefs That Will Affect Care: None Current Living Situation: Spouse Other Information That Helps Us Care for You: No Feels Safe at Home: Yes Safety Concerns: Feels Safe At This Time Assistive Devices: None Review of Systems Review of Systems: Unobtainable due to reduced consciousness Physical Exam Physical Exam: Chronically ill appearing, in acute distress lethargic/somnolent, not interactive opens eyes briefly to sternal rub, cannot focus or track unable to provide HPI unable to answer yes/no questions grimacing throughout visit, appears uncomfortable resp rate increased, dim breath sounds; +abd effort noted intermittent myoclonic jerks tachy s1s2, mild JVD abd softly distended diffuse gen weakness diaphoretic, pale, flushed cheeks Results & Data Vital Signs (Past 12 Hours) Vital Signs Temp Pulse Pulse Resp BP BP Pulse Ox 06/06/24 10:58 107 H 14 102/70 94 06/06/24 10:28 108 H 16 95/70 L 94 06/06/24 09:58 109 H 17 105/82 93 10/11/24 09:28 107 H 18 103/73 94 06/06/24 08:07 36.7 C 103 H 17 91/68 L 97 06/06/24 08:00 06/06/24 07:00 98 H 06/06/24 02:54 36.4 C L 107 H 18 103/70 93 06/06/24 00:36 112 H O2 Del Method O2 Flow Rate 06/06/24 10:58 Nasal Cannula 2 06/06/24 10:28 Nasal Cannula 2 06/06/24 09:58 Nasal Cannula 2 06/06/24 09:28 Nasal Cannula 2 06/06/24 08:07 Nasal Cannula 2 06/06/24 08:00 Room Air 06/06/24 07:00 06/06/24 02:54 Nasal Cannula 2 06/06/24 00:36 Laboratory Results 06/06/24 06/06/24 06/05/24 Range/Units 09:42 05:32 17:24 WBC 11.15 H (4.8-10.8) K/ul RBC 3.67 L (4.20-5.40) M/uL Hgb 12.1 (12.0-16.0) g/dl Hct 33.7 L (37.0-47.0) % MCV 91.8 (80.0-100.0) fL MCH 33.0 (25.0-34.0) pg MCHC 35.9 (32.0-36.0) g/dL RDW Std Deviation 68.1 H (36.4-46.3) fL RDW Coeff of Ebenezer 21.1 H (11.5-14.5) % Plt Count 290 (130-400) K/uL MPV 11.0 (9.4-12.4) fL Immature Gran % (Auto) 0.4 % Neut % (Auto) 68.7 % Lymph % (Auto) 6.3 % [place] % (Auto) 23.8 % Eos % (Auto) 0.4 % Baso % (Auto) 0.4 % Neut # (Auto) 7.67 H (1.40-6.50) K/uL Lymph # (Auto) 0.70 L (1.20-3.40) K/uL [place] # (Auto) 2.65 H (0.11-0.59) K/uL Eos # (Auto) 0.04 (0.00-0.50) K/uL Baso # (Auto) 0.04 (0.00-0.20) K/uL Immature Gran # (Auto) 0.05 (0.01-0.20) K/uL Polychromasia 2+ Anisocytosis Present Target Cells 2+ PT 12.6 H (9.0-12.0) Seconds INR 1.2 H (0.9-1.1) Sodium 133 L (136-145) mmol/L Potassium 4.5 (3.5-5.1) mmol/L Chloride 94 L (98-107) mmol/L Carbon Dioxide 32 (21-32) mmol/L Anion Gap 7 (3-11) BUN 38 H (6-23) mg/dl Creatinine 0.86 (0.6-1.2) mg/dl Est Cr Clr Drug Dosing 74.8 ml/min eGFR 77.77 BUN/Creatinine Ratio 44.2 H (10-20) Glucose 97 (70-99(Fasting)) mg/dl Calcium 8.6 (8.6-10.3) mg/dl Magnesium (1.7-2.4) mg/dl Total Bilirubin 3.9 H (0.2-1.0) mg/dl Direct Bilirubin (0-0.2) mg/dl AST 172 H (13-39) U/L ALT 63 H (7-52) U/L Alkaline Phosphatase 571 H (34-104) U/L Ammonia 45.0 (18-72) umol/L Troponin I High Sens (0-14) pg/ml B-Natriuretic Peptide (0-100) pg/ml Total Protein 4.9 L (6.0-8.3) gm/dl Albumin 2.3 L (3.4-5.0) gm/dl Globulin 2.6 (2.5-4.0) gm/dl Albumin/Globulin Ratio 0.9 (0.9-2) Lipase (11-82) U/L Urine Color Yellow Urine Appearance Clear (Clear) Urine pH 5.5 (4.5-7.5) Ur Specific [place] 1.010 (1.000-1.030) Urine Protein Negative (Negative) Urine Glucose (UA) Negative (Negative) Urine Ketones Negative (Negative) Urine Blood Trace H (Negative) Urine Nitrite Negative (Negative) Urine Bilirubin Negative (Negative) Urine Urobilinogen Negative (Negative) Ur Leukocyte Esterase Negative (Negative) Urine WBC (Auto) 0-5 (0-5) /hpf Urine RBC (Auto) 0-2 (0-2) /hpf U Hyaline Cast (Auto) 3-5 H (0-2) /lpf U Epithel Cells (Auto) 0-2 (0-2) /hpf Urine Bacteria (Auto) None Seen (None Seen) 06/05/24 Range/Units 12:16 WBC 10.52 (4.8-10.8) K/ul RBC 3.75 L (4.20-5.40) M/uL Hgb 12.5 (12.0-16.0) g/dl Hct 34.5 L (37.0-47.0) % MCV 92.0 (80.0-100.0) fL MCH 33.3 (25.0-34.0) pg MCHC 36.2 H (32.0-36.0) g/dL RDW Std Deviation 67.4 H (36.4-46.3) fL RDW Coeff of Ebenezer 20.8 H (11.5-14.5) % Plt Count 307 (130-400) K/uL MPV 11.5 (9.4-12.4) fL Immature Gran % (Auto) 0.7 % Neut % (Auto) 66.2 % Lymph % (Auto) 5.0 % [place] % (Auto) 27.2 % Eos % (Auto) 0.4 % Baso % (Auto) 0.5 % Neut # (Auto) 6.97 H (1.40-6.50) K/uL Lymph # (Auto) 0.53 L (1.20-3.40) K/uL [place] # (Auto) 2.86 H (0.11-0.59) K/uL Eos # (Auto) 0.04 (0.00-0.50) K/uL Baso # (Auto) 0.05 (0.00-0.20) K/uL Immature Gran # (Auto) 0.07 (0.01-0.20) K/uL Polychromasia 1+ Anisocytosis Target Cells 1+ PT 13.0 H (9.0-12.0) Seconds INR 1.2 H (0.9-1.1) Sodium 133 L (136-145) mmol/L Potassium 4.7 (3.5-5.1) mmol/L Chloride 95 L (98-107) mmol/L Carbon Dioxide 29 (21-32) mmol/L Anion Gap 9 (3-11) BUN 33 H (6-23) mg/dl Creatinine 0.93 (0.6-1.2) mg/dl Est Cr Clr Drug Dosing 70.8 ml/min eGFR 70.80 BUN/Creatinine Ratio 35.5 H (10-20) Glucose 112 H (70-99(Fasting)) mg/dl Calcium 8.8 (8.6-10.3) mg/dl Magnesium 1.8 (1.7-2.4) mg/dl Total Bilirubin 3.8 H (0.2-1.0) mg/dl Direct Bilirubin 2.3 H (0-0.2) mg/dl AST 134 H (13-39) U/L ALT 57 H (7-52) U/L Alkaline Phosphatase 530 H (34-104) U/L Ammonia (18-72) umol/L Troponin I High Sens 11.0 (0-14) pg/ml B-Natriuretic Peptide 36 (0-100) pg/ml Total Protein 5.2 L (6.0-8.3) gm/dl Albumin 2.4 L (3.4-5.0) gm/dl Globulin 2.8 (2.5-4.0) gm/dl Albumin/Globulin Ratio 0.9 (0.9-2) Lipase 10 L (11-82) U/L Urine Color Urine Appearance (Clear) Urine pH (4.5-7.5) Ur Specific [place] (1.000-1.030) Urine Protein (Negative) Urine Glucose (UA) (Negative) Urine Ketones (Negative) Urine Blood (Negative) Urine Nitrite (Negative) Urine Bilirubin (Negative) Urine Urobilinogen (Negative) Ur Leukocyte Esterase (Negative) Urine WBC (Auto) (0-5) /hpf Urine RBC (Auto) (0-2) /hpf U Hyaline Cast (Auto) (0-2) /lpf U Epithel Cells (Auto) (0-2) /hpf Urine Bacteria (Auto) (None Seen) Diagnostic Findings Chest X-Ray 10/10/24 12:32 XR chest 1V portable HISTORY: 59 years-old Female Chest pain, nonspecific COMPARISON: Chest CT 06/01/2024 TECHNIQUE: AP view of the chest FINDINGS: Cardiac silhouette is enlarged. Left subclavian Gchdgq-l-Lidh catheter distal tip projects over the right atrium. No pneumothorax. Perivascular congestion with reticular nodular densities again seen. Layering pleural effusions with bibasilar consolidation. IMPRESSION: 1. Cardiomegaly with pulmonary vascular congestion. 2. Reticulonodular opacities are again seen suggestive of lymphangitic carcinomatosis. Superimposed pulmonary edema could appear similarly. 3. Layering pleural effusions with persistent right greater than left bibasilar consolidation. Findings appear similar to the 06/01/[address] ACT 112: Negative or not required by law. The above report was generated using voice recognition software. It may contain grammatical, syntax or spelling errors. Electronically signed by: Simone Guillaume M.D. 06/05/2024 1:25 PM Abdomen/Pelvis CT 06/05/24 13:38 CT OF THE ABDOMEN AND PELVIS WITHOUT CONTRAST CLINICAL HISTORY: edema, distention, metastatic CA COMPARISON STUDY: CT of the abdomen and pelvis June 01, 2024. TECHNIQUE: Axial images of the abdomen and pelvis were obtained without IV contrast. Images were reviewed in the axial, sagittal, and coronal planes. Automated exposure control was utilized for the study. A dose lowering technique was utilized adhering to the principles of ALARA. FINDINGS: Small to moderate bilateral pleural fusions are again noted. The visualized esophagus is moderately distended and fluid-filled. Dilatation of visualized portions of the ascending aorta is unchanged. Nodular interlobular septal thickening within the lower lungs is again noted, most probably within the right lower lobe with multiple mass-like densities. Innumerable hepatic metastases are similar to prior exam. Moderate to large ascites has slightly increased. There is no evidence for a bowel obstruction. No biliary or pancreatic ductal dilatation is present. Small peritoneal nodules are noted. There is no hydronephrosis. The uterus and ovaries are surgically absent. There is evidence for retroperitoneal lymph node dissection. The bladder is distended. Body wall edema is present. There are no suspicious lesions within the visualized skeletal structures. No acute fractures are identified. IMPRESSION: 1. Redemonstration of extensive hepatic metastases. 2. Moderate to large abdominal and pelvic ascites, slightly increased. The findings suggest peritoneal carcinomatosis. 3. No bowel obstruction. 4. Small to moderate bilateral pleural effusions with findings suggestive of lymphangitic carcinomatosis within the lower chest. 5. Mildly distended fluid-filled distal esophagus with esophageal wall thickening, as shown on prior exam. ACT 112: Negative or not required by law. Electronically signed by: Jeff De La Torre M.D. 06/05/2024 3:[address] 06/05/24 13:38 CT chest diagnostic wo con CT DOSE: 1884.79 mGy.cm CLINICAL HISTORY: 59 years-old Female with edema, distention, metastatic CA. Acute generalized abdominal pain with lower extremity edema TECHNIQUE: Multiaxial CT images of the chest were performed without contrast. A dose lowering technique was utilized adhering to the principles of ALARA. COMPARISON: CT abdomen and pelvis of same day, chest CT 06/01/2024, April 21, 024. FINDINGS: Subcentimeter calcifications of the thyroid. A left subclavian Txuzyz-f-Vhgl is in place. Dilatation of the ascending aorta measuring 4.3 cm is unchanged. Circumferential esophageal wall thickening is noted in the esophagus is dilated, fluid and debris-filled. There is no pneumothorax. Teexy-yd-oxazsrgc bilateral pleural effusions are unchanged. Extensive irregular nodular densities within the right lower lobe again noted. Irregular nodular densities throughout the remainder of the lungs with interlobular septal thickening unchanged from 06/01/2024. Right lower lobe volume loss is again seen. There are no suspicious osseous lesions within the bony thorax. Multiple healing left-sided rib fractures are present. Extensive liver metastases appear stable. These are better depicted on the abdominal CT which will be reported separately. Abdominal ascites has increased. There is no pericardial effusion. A mildly enlarged prevascular lymph node measures 1.4 x 0.8 on image 60. This is unchanged. Unchanged 10 mm focus of the left lower lobe on image 139. IMPRESSION: 1. Unchanged appearance of the chest compared to the study obtained 06/01/2024. 2. Cardiomegaly with lymphangitic carcinomatosis and unchanged [id number]-[id number]-zajnltfz layering pleural effusions. Superimposed pulmonary edema would be difficult to exclude. 3. Extensive nodular consolidation of the basal right lower lobe appears stable. 4. Debris and fluid-filled dilated esophagus with circumferential wall thickening. 5. Extensive hepatic metastasis with upper abdominal ascites. Please refer to the same day CT abdomen and pelvis study for additional findings. ACT 112: Negative or not required by law. Electronically signed by: Simone Guillaume M.D. 06/05/2024 2:36 PM Paracentesis Ultrasound 06/06/24 08:00 ULTRASOUND-GUIDED PARACENTESIS CLINICAL HISTORY: Ascites PROCEDURE: Procedure and risks were explained. Informed consent was obtained. A final timeout was completed. The abdomen was prepped and draped in sterile fashion. 1% lidocaine was utilized for skin anesthesia. Utilizing ultrasound guidance, a 5 Romanian safety centesis catheter was advanced into the right lower quadrant pocket of ascites. Ultrasound images were obtained. A total of 1.9 L of ascites fluid was removed and discarded. The catheter was removed and Band-Aid applied. The patient tolerated the procedure well. Vital signs will be monitored postprocedure. IMPRESSION: Ultrasound-guided paracentesis as above. Performed, dictated, and signed by Elder Owens PA-C; to be co-signed by Dr. Simone Guillaume. PG Care Time/CCT Total # of Minutes Spent Total Time Spent with Patient: Total time spent is greater than 50% in coordination of care (as documented) at patient's floor/unit and/or counseling patient: I spent 80 minutes overall addressing this case: 15 min in medical data review/discussion with referring provider(s) and/or preparation for the visit 15 min in direct interaction with the patient/exam 20 min in Advance Care Planning/Goals of Care discussions as detailed above in note (must be >16min) 15 min in subsequent review and synthesis of assessment and plan 20 min communicating with other providers regarding the patient's case: nursing, care mgt, primary team, nutrition Advanced Care Planning [id number] Advanced Care Planning 30 [place] [address] IN/OBS CONSULT LVL 4,60M (25 - SIGNIFICANT, SEPARATELY IDENTIFIABLE ) Patient Type New Medical Decision Making High Complexity Diagnoses Cancer related pain G89.3 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
[2024-06-06] MEDS: LORazepam 2 MG/1 ML VIAL IV PRN ×2 (12:08→18:07)
[2024-06-06] MEDS: INFLUENZA VACC TS2024-25(6m+)/PF (IIV3) 0.5mL Syr IM ONE (22:50)
[2024-06-07] MEDS: HYDROmorphone INJ 0.5 MG/0.5 ML SYR IV PRN (00:51)
[2024-06-07] MEDS: GLYCOPYRROLATE 0.2 MG/ML VIAL IV PRN (10:40)
--- NOTE | 2024-06-07 11:14 | Hospitalist Progress Note ---
Date of Service June 07, 2024 Assessment & Plan (1) Metastatic cancer: Plan: Metastatic ovarian cancer with mets to liver, first dx in 2007, has been on numerous treatment modalities. Follows with [facility]; last chemotherapy 3-4 weeks ago. Recent admission with ascities and had paracentesis 05/30 and 06/02. Presented with ambulatory dysfunction and worsening ascites. Had repeat paracentensis 06/06 with 1.9L removed and almost no change in symptoms. 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 I agree w/ the leal components of her documentation. Continue comfort care measures. Darian Rayo MD Subjective Patient lying in bed, sleeping soundly, appears comfortable no twitching Review of Systems Review of Systems: Unobtainable due to cognitive status Physical Exam Physical Exam: lying in bed no twitching did not awaken appears comfortable Results & Data Results & Data Vital Signs (Past 12 Hours) Vital Signs O2 Del Method O2 Flow Rate 06/07/24 07:41 Nasal Cannula 2 06/07/24 00:54 Room Air, Nasal Cannula 2 PG Care Time/CCT Total # of Minutes Spent Total Time Spent with Patient: Total time spent is greater than 50% in coordination of care (as documented) at patient's floor/unit and/or counseling patient: Coding Level of Care Code 08398 SUB INP/OBS CARE 25MIN Diagnoses Metastatic cancer C79.9 Area of secondary neoplastic involvement: unspecified site Comfort measures only status Z51.5 (1) Metastatic cancer Area of secondary neoplastic involvement: unspecified site Qualified Code(s): C79.9 - Secondary malignant neoplasm of unspecified site
--- NOTE | 2024-06-08 09:37 | Hospitalist Progress Note ---
Date of Service June 08, 2024 Assessment & Plan (1) Metastatic cancer: Plan: Metastatic ovarian cancer with mets to liver, first dx in 2007, has been on numerous treatment modalities. Follows with [facility]; last chemotherapy 3-4 weeks ago. Recent admission with ascities and had paracentesis 05/30 and 06/02. Presented with ambulatory dysfunction and worsening ascites. Had repeat paracentensis 06/06 with 1.9L removed and almost no change in symptoms. 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 Plan for reeval with palliative tomorrow for possible home with hospice? updated at bedside 06/06, 06/08 family updated 06/07 Admission and Anticipated Discharge Date Admission Date: June 05, 2024 Supervising Physician Co-Signing Physician Notes Attending Attestation - Chart reviewed, care plan d/w JUVENTINO Ge. I agree w/ the leal components of her documentation. Continue comfort care measures. Darian Rayo MD Subjective Patient lying in bed, sleeping soundly, appears comfortable no twitching Physical Exam Physical Exam: lying in bed no twitching did not awaken to verbal stimuli tachycardic mild UE edema abd is soft, non distended appears comfortable Results & Data Results & Data Vital Signs (Past 12 Hours) Vital Signs O2 Del Method O2 Flow Rate 06/08/24 08:31 Nasal Cannula 2 06/08/24 01:52 Nasal Cannula 2 PG Care Time/CCT Total # of Minutes Spent Total Time Spent with Patient: Total time spent is greater than 50% in coordination of care (as documented) at patient's floor/unit and/or counseling patient: Coding Level of Care Code 84619 SUB INP/OBS CARE 09/20MIN Diagnoses Metastatic cancer C79.9 Area of secondary neoplastic involvement: unspecified site Comfort measures only status Z51.5 (1) Metastatic cancer Area of secondary neoplastic involvement: unspecified site Qualified Code(s): C79.9 - Secondary malignant neoplasm of unspecified site
[2024-06-08] MEDS: HYDROmorphone INJ 1 MG/ML SYRINGE IV PRN (12:06)
[2024-06-09 06:41] VITALS: BP 73/54; PULSE 136; RESP 30; TEMP 103.6; O2SAT 82
--- NOTE | 2024-06-09 11:51 | Hospitalist Progress Note ---
Date of Service June 09, 2024 Assessment & Plan (1) Metastatic cancer: Plan: Metastatic ovarian cancer with mets to liver, first dx in 2007, has been on numerous treatment modalities. Follows with [facility]; last chemotherapy 3-4 weeks ago. Recent admission with ascities and had paracentesis 05/30 and 06/02. Presented with ambulatory dysfunction and worsening ascites. Had repeat paracentensis 06/06 with 1.9L removed and almost no change in symptoms. 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 Plan for reeval with palliative tomorrow for possible home with hospice? updated at bedside 06/06, 06/08 family updated 06/07 Admission and Anticipated Discharge Date Admission Date: June 05, 2024 Results & Data Results & Data Vital Signs (Past 12 Hours) Vital Signs Temp Pulse Resp BP Pulse Ox O2 Del Method O2 Flow Rate 06/09/24 07:25 Oxymask 3 06/09/24 06:39 39.8 C H 136 H 30 H 73/54 L 82 L Room Air 2 PG Care Time/CCT Total # of Minutes Spent Total Time Spent with Patient: Total time spent is greater than 50% in coordination of care (as documented) at patient's floor/unit and/or counseling patient: Coding Diagnoses Metastatic cancer C79.9 Area of secondary neoplastic involvement: unspecified site Comfort measures only status Z51.5 (1) Metastatic cancer Area of secondary neoplastic involvement: unspecified site Qualified Code(s): C79.9 - Secondary malignant neoplasm of unspecified site
--- NOTE | 2024-06-09 13:18 | Death Pronouncement Note ---
Date of Service June 09, 2024 Pronouncement Note Admission Date June 05, 2024 Preliminary Cause of (1) Metastatic cancer: Area of secondary neoplastic involvement: unspecified site Qualified Code(s): C79.9 - Secondary malignant neoplasm of unspecified site Additional Comments: Patient diagnosed with metastatic ovarian cancer first diagnosed in 2007 and has been on numerous treatment modalities. Followed w/ [facility] and last chemotherapy approximately 3-4 weeks ago. She also had a recent admission w/ paracentesis on 05/30 and 06/02. Presented to the hospital on 06/05/2024 with ambulatory dysfunction and worsening ascites. Had a repeat paracentesis with 1.9L removed and almost not change in symptoms. 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 They were unresponsive to, and did not withdrawal from verbal or tactile stimuli. They were unresponsive to corneal, pupillary, and oculocephalic reflexes. On cardiopulmonary exam, they were found to be without detectable pulses, and without spontaneous heart tones or respirations. Time of pronounced 06/09/2024 at 12:20pm. Additional Data Attending physician: Leandro Winters Coding Level of Care Code 91263 INP/OBS DISCH >30 MIN Diagnoses Metastatic cancer C79.9 Area of secondary neoplastic involvement: unspecified site
== END 2024-06-09 14:33 | disposition expired | DRG 375 ==
LOC: ED 11:45 → SUATTDRO 16:10 → 2W 16:10
DX: C78.7 Secondary malignant neoplasm of liver and intrahepatic bile duct; G62.0 Drug-induced polyneuropathy; R18.8 Other ascites; C79.89 Secondary malignant neoplasm of other specified sites; J90 Pleural effusion, not elsewhere classified; C56.9 Malignant neoplasm of unspecified ovary; G25.3 Myoclonus; Z88.0 Allergy status to penicillin; Z51.5 Encounter for palliative care; Z91.041 Radiographic dye allergy status; Z88.1 Allergy status to other antibiotic agents; C78.6 Secondary malignant neoplasm of retroperitoneum and peritoneum; Y92.019 Unspecified place in single-family (private) house as the place of occurrence of the external cause; G89.3 Neoplasm related pain (acute) (chronic); Z66 Do not resuscitate; T45.1X5A Adverse effect of antineoplastic and immunosuppressive drugs, initial encounter; R74.01 Elevation of levels of liver transaminase levels; R06.09 Other forms of dyspnea; Z95.828 Presence of other vascular implants and grafts